=== PATIENT | female | born 1960 | race Caucasian/White ===

== ENCOUNTER 2019-02-21 12:13 | Outpatient (REF) | payer MEDICAID, SELFPAY ==
[2019-02-21 19:39] LABS: Abs Immature Grans 0.05 k/cumm (0.0-0.09); Absolute Basophil Count 0.02 k/cumm (0.0-0.2); Absolute Eosinophil Count 0.39 k/cumm (0.0-0.7); Absolute Lymphocyte Count 1.43 k/cumm (1.2-3.4); Absolute Neutrophil Count 7.33 k/cumm (1.2-6.7); Basophils % 0.2; Eosinophils % 3.9; HCT 40.6 % (36.0-46.0); HGB 13.4 g/dL (12.0-15.5); Immature Grans % 0.5; Lymphocytes % 14.4; Mean Corpuscular Hemoglobin 31.1 pg (27.0-33.0); Mean Corpuscular Volume 94.2 fL (80-95); Mean Platelet Volume 9.2 fL (8.0-11.0); Monocytes % 7.1; Neutrophils % 73.9; Platelet Count 550 x1000/uL (130-400); RBC 4.31 m/cumm (4.00-5.20); RBC Distribution Width 12.8 % (11.7-14.6); White Blood Cell Count 9.92 k/cumm (4.4-10.8)
[2019-02-21 20:03] LABS: ALT 33 U/L (12-78); AST 21 U/L (15-37); Albumin 3.1 g/dL (3.4-5.0); Alkaline Phosphatase 269 U/L (46-116); Anion Gap 11.4 mmol/L (3-11); BUN 10 mg/dL (7-18); Bilirubin, Total 0.3 mg/dL (0.2-1.0); CO2 23.6 mmol/L (21.0-32.0); CREATININE 0.52 mg/dL (0.55-1.02); Chloride 103 mmol/L (98-107); Glucose 89 mg/dL (70-100); Potassium 4.4 mmol/L (3.5-5.1); Sodium 138 mmol/L (136-145); TSH (W/Ref FT4) 3.17 uIU/mL (0.36-3.74); Total Protein 6.5 g/dL (6.4-8.2)
[2019-02-21 20:19] LABS: Magnesium 2.3 mg/dL (1.8-2.4)
== END 2019-02-21 12:33 ==
LOC: LBO 12:13
PROVIDERS: PCP Internal Medicine; Visit Provider Family Medicine
DX: R53.83 Other fatigue (principal); G47.62 Sleep related leg cramps
CPT/HCPCS: 80053; 83735; 84443; 85025

== ENCOUNTER 2019-02-25 14:16 | Outpatient (CLI) | payer MEDICAID, SELFPAY ==
--- NOTE | 2019-02-25 12:15 | DI.RAD_ITS ---
SYMPTOMS/DIAGNOSIS: THROMBOCYTOSIS, D47.3, MALAISE PA AND LATERAL CHEST: Comparison is made with January,. The heart size is normal. The lungs are clear with the exception of some mild apical scarring. There is mild hyperinflation. No infiltrate, effusion or pulmonary edema is seen. No mass or adenopathy is visible. IMPRESSION: No acute abnormality.
== END 2019-02-25 14:36 ==
PROVIDERS: PCP Internal Medicine; Visit Provider Internal Medicine
DX: D47.3 Essential (hemorrhagic) thrombocythemia (principal); R53.81 Other malaise
CPT/HCPCS: 71046

== ENCOUNTER 2019-03-19 00:28 | Outpatient (CLI) | payer MEDICAID, SELFPAY ==
--- NOTE | 2019-03-19 06:47 | MERGEMPI_ITS ---
*[facility]* *[facility]* [address] [place] [address] Myocardial Perfusion Imaging - SPECT Emmett protocol Date of study: 03/19/2019 *PATIENT PRESENTATION* Height: 162.6cm (64in) Blood Pressure: Weight: 59.1kg (130lb) BSA: 1.64m^2 Referring physician: Joselo Myers MD Ordering physician: Alesia Meza Impressions: Normal perfusion by Tc99m Sestamibi Imaging. Summary: 1. Myocardial perfusion imaging: No myocardial perfusion defects noted. 2. The calculated left ventricular ejection fraction after stress: 55%. No left ventricular regional motion abnormality. Indication: R68.89. History: REASON FOR TESTING: FATIGUE AND 9 LB WEIGHT LOSS PMH:GERD, FATIGUE, BILAT HIP AND KNEE PAIN, NOCTURNAL LEG CRAMPS, ANXIETY, VIT B 12 DEFICIENCY, CAROTID ARTERY STENOSIS, COPD, INTERMITTANT CLAUDICATION, PERIPHERAL NEUROPATHY, PVD, PURE HYPERCHOLESTEROLEMIA, LEFT SUBCLAVIAN ARTERY STENOSIS. FAMILY HX: FATHER- HYPERLIPIDEMIA, CO, CAD. CO IN BOTH GRANDPARENTS. SMOKING: DAILY SMOKER X 45 YEARS. EXCERCISE: NONE. PMH: COPD. Risk factors: Family history of coronary artery disease. Current tobacco use. Hypertension. Dyslipidemia. Cholesterol: 188mg/dl. HDL: 45mg/dl. LDL: 121mg/dl. Triglycerides: 133mg/dl. Peripheral vascular disease. ALLERGIES: ERYTHROMYCIN BASE. MEDICATIONS: ASPIRIN 81 MG DAILY, ALBUTEROL SULFATE 90 MCG/ACT 2 PUFFS Q4H PRN, CLOPIDOGREL 75 MG DAILY, FLUTICASONE PROPIONATE- SALMETEROL 23. MCG-21 MCG/ACT 2 PUFFS BID, GABAPENTIN 600 MG TID, ROSUVASTATIN 10 MG DAILY, TIOTROPIUM BROMIDE 18 MCG DAILY, RANITADINE HCL 300 MG BID, CARBAMAZEPINE 200 MG BID, Imaging Technique: Protocol: Emmett protocol. Acquisition: Gated SPECT; 1 day - rest/stress. The patient was imaged in the supine position. Attenuation correction used. Isotope administration: - Rest. Tc[99m]-sestamibi. Dose: 9.8mCi. Injection time: 08:30 AM. Injection to stress time: 00:45. - Stress. Tc[99m]-sestamibi. Dose: 31mCi. Injection time: 09:50 AM. 1-2 min before end of exercise Baseline ECG: LAST EKG 02/21/19- SINUS RHYTHM NONSPECIFIC T-ABNORMALITY. HR 95. TODAY'S EKG- ACCELERATED JUNCTIONAL RHYTHM VS SINUS RHYTHM, HR 85. Stress protocol: +--------+---+ + + !Stage !HR !BP (mmHg) !Comments ! +--------+---+ + + !Baseline!85 !132/80 (97)! ! +--------+---+ + + !1 min !99 ! !Inject Regadenoson.! +--------+---+ + + !2 min !---!138/70 (93)! ! +--------+---+ + + !3 min !103!136/78 (97)! ! +--------+---+ + + !6 min !99 !134/80 (98)! ! +--------+---+ + + * Stress results: The rate-pressure product for the peak heart rate and blood pressure was 04217fx Hg/min. Stress ECG: PT UNABLE TO EXCERCISE- TEST DONE LEXISCAN. MEDICATION TESTING COMPTETE IN 6 MINS LEXISCAN EFFFECT NO LONGER PRESENT. MAX HR WAS 106, WITH A SLIGHTLY HYPERTENSIVE BLOOD PRESSURE RESPONSE. ECTOPY: NONE NOTED: ANGINA: NO REPORTED CHEST PAIN OR PRESSURE. Myocardial perfusion: Imaging information: gated. No myocardial perfusion defects noted. Ventricular Function (Wall Motion): The calculated left ventricular ejection fraction after stress: 55%. No left ventricular regional motion abnormality. Study data: Joselo Myers MD supervised and was readily available during the procedure. This study was interpreted by [facility]. Study status: Routine. Consent: The risks, benefits, and alternatives to the procedure were explained to the patient and informed consent was obtained. Procedure: Initial setup. A baseline ECG was recorded. Surface ECG leads and manual cuff blood pressure measurements were monitored. Heart sounds: Normal. Lung sounds: Normal. Treadmill exercise testing was performed using the Emmett protocol. Study completion: All catheters inserted during the procedure were removed. The patient tolerated the procedure well and was discharged from the lab. Discharge: The patient left the laboratory in stable condition. Birthdate: Patient birthdate: 1960. Sex: Gender: female. Study date: Study date: 03/19/2019. Study time: 00:01 AM. Electronically signed by Joselo Myers MD 03/19/2019 12:43
[2019-03-19] MEDS: Regadenoson 0.4 MG/5 ML SYR IVP (12:07)
== END 2019-03-19 00:48 ==
PROVIDERS: PCP Internal Medicine; Visit Provider Internal Medicine
DX: R53.83 Other fatigue (principal); R63.4 Abnormal weight loss; R68.89 Other general symptoms and signs; I10 Essential (primary) hypertension; E78.00 Pure hypercholesterolemia, unspecified
CPT/HCPCS: 78452; 93017; J2785

== ENCOUNTER 2019-03-19 00:54 | Outpatient (CLI) | payer MEDICAID, SELFPAY | END 2019-03-19 01:14 | PROVIDERS: PCP Internal Medicine; Visit Provider Internal Medicine | DX: R53.83 Other fatigue (principal); R63.4 Abnormal weight loss; R68.89 Other general symptoms and signs; I10 Essential (primary) hypertension; E78.00 Pure hypercholesterolemia, unspecified; F17.200 Nicotine dependence, unspecified, uncomplicated; J44.9 Chronic obstructive pulmonary disease, unspecified; Z82.49 Family history of ischemic heart disease and other diseases of the circulatory system | CPT/HCPCS: 78452; 93017 ==

== ENCOUNTER 2019-04-29 21:09 | Emergency (ER) | payer MEDICAID, SELFPAY ==
[2019-04-29 21:10] VITALS: BP 107/64; PULSE 92; RESP 16; TEMP 36.3; O2SAT 95
--- NOTE | 2019-04-29 22:18 | W.ED.GENAD ---
Discharge Plan Disposition Patient Disposition: OTHER Condition: Stable Discharge Details Chief Complaint: Nk/Back Pain Clinical Impression: Back pain due to injury Primary Care Provider: Alesia Meza ED Provider: Duke Quiñonez Home Meds and New Rx's Prescriptions: No Action albuterol sulfate [ProAir HFA] 90 mcg/actuation HFA aerosol inhaler 2 puff Inhalation Q4H PRN Qty: 3 RF: 3 clopidogrel [Plavix] 75 mg tablet 75 mg PO DAILY Qty: 90 RF: 3 Advair HFA 230-21 mcg/actuation HFA aerosol inhaler 2 inh Inhalation BID Qty: 36 RF: 3 gabapentin 600 mg tablet 600 mg PO TID Qty: 270 RF: 3 rosuvastatin [Crestor] 10 mg tablet 10 mg PO DAILY Qty: 90 RF: 3 Spiriva with HandiHaler 18 mcg capsule, w/inhalation device 18 mcg Inhalation DAILY Qty: 90 RF: 3 ranitidine HCl 150 mg tablet 150 mg PO BID Qty: 180 RF: 3 aspirin [Aspir-81] 81 MG tablet,delayed release (DR/EC) 81 mg PO DAILY RF: 0 Medical Decision Making Patient presenting to the emergency department for chief complaint of left lower back pain. 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 When she twisted she started noting some immediate left lower back pain. Patient has continued to work and has taken intermittent Advil as needed for discomfort but given that pain is persisted she is presenting the emergency department for evaluation. Physical exam is unremarkable except for point tenderness to the left sacroiliac joint and left lower soft tissue. Patient has no vertebral tenderness. No signs of cauda equina, epidural abscess, or central cord syndrome. Plan to perform radiological imaging given duration of symptoms and treat discomfort symptomatically. When staff psychiatrist went to check on patient to prepare for radiology patient had eloped. HPI General Mode of arrival: ambulatory. Date/Time Provider Initiated Documentation: 04/29/19 21:25. Limitations to Documentation: no limitations. Information obtained by: patient and RN notes reviewed. History of Present Illness 59 year old F presents to the emergency department with the chief complaint of Back pain, described as moderate, with intensity rated at 7. Quality is described as aching, and is localized to the back and left (lower). Patient started experiencing this week(s) (3) and it has been constant. Movement worsens symptoms . Patient notes no other symptoms.. Patient did receive the following treatments prior to arrival, NSAID Related Data Home Medications Medication Instructions Recorded Confirmed aspirin [Aspir 81] 81 mg PO DAILY tab 04/24/17 04/29/19 albuterol sulfate 90 mcg/actuation 2 puff INHALATION Q4H PRN #3 10/30/18 04/29/19 aerosol inhaler inhaler clopidogrel 75 mg tablet 75 mg PO DAILY #90 tab-cap 10/30/18 04/29/19 fluticasone propionate-salmeterol 2 inh INHALATION BID #36 gm 10/30/18 04/29/19 230 mcg-21 mcg/actuation HFA inhaler gabapentin 600 mg tablet 600 mg PO TID #270 tab 10/30/18 04/29/19 rosuvastatin 10 mg tablet 10 mg PO DAILY #90 tab-cap 10/30/18 04/29/19 tiotropium bromide 18 mcg capsule 18 mcg INHALATION DAILY #90 tab-cap 10/30/18 04/29/19 with inhalation device ranitidine HCl 150 mg tablet 150 mg PO BID #180 tab 03/04/19 04/29/19 Previous Rx's Medication Instructions Recorded albuterol sulfate 90 mcg/actuation 2 puff INHALATION Q4H PRN #3 10/30/18 aerosol inhaler inhaler clopidogrel 75 mg tablet 75 mg PO DAILY #90 tab-cap 10/30/18 fluticasone propionate-salmeterol 2 inh INHALATION BID #36 gm 10/30/18 230 mcg-21 mcg/actuation HFA inhaler gabapentin 600 mg tablet 600 mg PO TID #270 tab 10/30/18 rosuvastatin 10 mg tablet 10 mg PO DAILY #90 tab-cap 10/30/18 tiotropium bromide 18 mcg capsule 18 mcg INHALATION DAILY #90 tab-cap 10/30/18 with inhalation device ranitidine HCl 150 mg tablet 150 mg PO BID #180 tab 03/04/19 Allergies Allergy/AdvReac Type Severity Reaction Status Date / Time erythromycin base Allergy Unknown Verified 04/29/19 21:16 DO NOT TAKE BP LEFT ARM AdvReac Uncoded 02/25/19 11:14 General Stated Complaint: Nk/Back Pain TRIPP: 4 Review of Systems Constitutional Constitutional: Denies chills and Denies fever(s) Gastrointestinal Gastrointestinal: Denies change in bowel habits and Denies diarrhea Genitourinary Genitourinary: Denies urinary incontinence Musculoskeletal Musculoskeletal: Reports as per HPI and Reports back pain Neurologic Neurologic: Denies sensory deficit [facility] Medical History Anxiety Carotid artery stenosis COPD (chronic obstructive pulmonary disease) PVD (peripheral vascular disease) Smoker Surgical History aortogram (02/04/15[place] [facility] [place] , Ectopic (~1988) Right NIKI Stent Graft (02/04/15) [facility] [place] Right Iliofemoral Endartecectomy (02/04/15) [facility] [place] Right SFA Endarterectomy (02/04/15) [facility] [place] 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 What is your relationship status?: Panel score (0-1 are the most socially isolated patients): 0 What type of physical activity do you participate in: none Seatbelt use: always Drive intox or ride w/intox flag car driver: No Working smoke detector in home: Yes Carbon monox detector in home: Yes Do you feel safe at home: Yes Do you feel safe in your relationship?: Yes Exam Const General: cooperative and no acute distress Orientation: alert, awake and oriented x3 Neck Neck: normal visual inspection, full ROM and no meningeal signs Back/Spine/Pelvis Thoracic/Lumbar Spine: straight leg raise negative bilaterally, No mass, pain with thoraco-lumbar ROM, No paraspinal tenderness, No lumbar spinal tenderness and other (point Tenderness to the left sacroiliac joint) Pelvis: no pain with anterior-posterior compression, no pain with lateral compression, no buttock tenderness and no sciatic notch tenderness Neuro General: alert, awake and oriented x3 DTR's: Rt Patellar: 2+, Lt Patellar: 2+, Rt Ankle: 2+ and Lt Ankle: 2+ Extrem General: normal to inspection, full ROM, normal capillary refill, normal exam except as noted and no pedal edema Course Vital Signs Vital signs: Vital Signs Temperature 36.3 C L 04/29/19 21:10 Pulse 92 H 04/29/19 21:10 Respiratory Rate 16 04/29/19 21:10 Blood Pressure 107/64 04/29/19 21:10 Pulse Oximetry 95 04/29/19 21:10 Temperature 36.3 C L 04/29/19 21:10 Pulse 92 H 04/29/19 21:10 Respiratory Rate 16 04/29/19 21:10 Respiratory Effort 04/29/19 21:18 Blood Pressure 107/64 04/29/19 21:10 Blood Pressure Position Sitting 04/29/19 21:10 Pulse Oximetry 95 04/29/19 21:10 Oxygen Delivery Method Room Air 04/29/19 21:10 Oxygen Flow Rate 0 04/29/19 21:10 Pain Level 7 04/29/19 21:10 Comment 04/29/19 21:10
[2019-04-29] MEDS: Acetaminophen 500 MG TAB 1000 MG PO (22:21)
--- NOTE | 2019-04-29 22:46 | NUR.NOTE ---
2240: pt not in exam room - has been waiting for radiology Nursing Note:
== END 2019-04-29 22:40 | disposition other institution (70) ==
PROVIDERS: Emergency Provider Nurse Practitioner Family; PCP Internal Medicine
DX: M54.5 Low back pain (principal); X50.1XXA Overexertion from prolonged static or awkward postures, initial encounter; Y99.0 Civilian activity done for income or pay; Z53.29 Procedure and treatment not carried out because of patient's decision for other reasons
CPT/HCPCS: 99283

== ENCOUNTER 2019-06-16 14:00 | Outpatient (REF) | payer MEDICAID, SELFPAY ==
[2019-06-16 19:06] LABS: Abs Immature Grans 0.02 k/cumm (0.0-0.09); Absolute Basophil Count 0.01 k/cumm (0.0-0.2); Absolute Eosinophil Count 0.51 k/cumm (0.0-0.7); Absolute Lymphocyte Count 2.15 k/cumm (1.2-3.4); Absolute Monocyte Count 0.59 k/cumm (0.11-0.7); Absolute Neutrophil Count 5.46 k/cumm (1.2-6.7); Basophils % 0.1; Eosinophils % 5.8; Immature Grans % 0.2; Lymphocytes % 24.6; Mean Corp. HGB Concentration 33.3 g/dL (32.0-36.0); Mean Corpuscular Hemoglobin 31.6 pg (27.0-33.0); Mean Corpuscular Volume 94.8 fL (80-95); Mean Platelet Volume 10.1 fL (8.0-11.0); Monocytes % 6.8; Neutrophils % 62.5; Platelet Count 268 x1000/uL (130-400); RBC 4.43 m/cumm (4.00-5.20); RBC Distribution Width 12.7 % (11.7-14.6); White Blood Cell Count 8.74 k/cumm (4.4-10.8)
[2019-06-16 20:13] LABS: ESR 11 mm/hr (0-30)
== END 2019-06-16 14:20 ==
LOC: LBN 14:00
PROVIDERS: PCP Internal Medicine; Visit Provider Family Medicine
DX: D47.3 Essential (hemorrhagic) thrombocythemia (principal); R21 Rash and other nonspecific skin eruption
CPT/HCPCS: 85652; 85025

== ENCOUNTER 2020-01-23 00:36 | Outpatient (CLI) | payer MEDICAID, SELFPAY ==
--- NOTE | 2020-01-23 13:58 | DI.CTLCSR_ITS ---
EXAM: CT CHEST LUNG CANCER SCREEN CLINICAL HISTORY: The patient reportedly has a History of Smoking 30 pack years and presently smokes or has quit the past 15 years. TECHNIQUE: Imaging Protocol: Axial computed tomography images with coronal and sagittal reformatted images were created and reviewed COMPARISON: CR XR CHEST 2V PA LATERAL from 02/25/2019 FINDINGS: Tracheobronchial tree: Patent where visualized. Mediastinum and Maribel: No dominant adenopathy or fluid collection. Pulmonary parenchyma: No consolidation or dominant measurable mass. Emphysematous changes are seen at the lung apices. There is calcification at the apical pleura on the right. There few small scatter ed tiny calcifications bilaterally.. Lung Nodules: 3 millimeter left lower lobe noncalcified nodule. Pleura: No effusion or pneumothorax. Heart: The heart is not dilated. Moderate coronary artery calcifications are seen. Aorta: Thoracic aorta non-dilated.Mild calcification Upper abdomen: Unremarkable. Bones: Degenerative changes in the spine. Soft Tissues: Unremarkable. IMPRESSION: Emphysematous changes at the lung apices. Scattered calcified tiny pulmonary nodules. 3 millimeter non calcified left lower lobe nodule. Lung RADS Cat 2 - Benign Appearance / Behavior: Nodules with a very low likelihood of becoming a clin ically active cancer due to size or lack of growth Lung-RADS 1.0 CATEGORIES: Category 0 - Prior chest CT exam(s) being located for comparison. Category 1 - Annual screening in 12 months. No nodules or definitely benign nodules. Category 2 - Annual screening in 12 months. Benign appearance. Nodules with low likelihood of becomin g active cancer. Category 3 - 6-month follow-up. Probably benign. Short-term follow-up suggested. Nodules with low lik elihood of becoming active cancer. Category 4A - 3-month follow-up and CT/PET if >8 mm in size. Suspicious finding. Findings which requi re additional testing. Category 4B - Findings which require additional testing and tissue sampling. Suspicious finding. C Added to Any of the Above - History of prior lung cancer screening. S Added to Any of the Above - Significant unexpected other finding. RADIATION DOSE DELIVERED: Total DLP DATA REPOSITORY: All CT scans at this facility are submitted to the National Radiology Data Registry (NRDR) Dose Index Registry (DIR) with the [employer] (ACR). RADIATION OPTIMIZATION: All CT scans at this facility use at least one of these dose optimization te chniques: automated exposure control; mA and/or kV adjustment per patient size (includes targeted exa ms where dose is matched to clinical indication); or iterative reconstruction.
== END 2020-01-23 00:56 ==
PROVIDERS: PCP Internal Medicine; Visit Provider Internal Medicine
DX: Z12.2 Encounter for screening for malignant neoplasm of respiratory organs (principal); F17.210 Nicotine dependence, cigarettes, uncomplicated; R91.8 Other nonspecific abnormal finding of lung field; J98.4 Other disorders of lung
CPT/HCPCS: G0297

== ENCOUNTER 2020-02-11 01:34 | Outpatient (CLI) | payer MEDICAID, SELFPAY ==
--- NOTE | 2020-02-11 15:21 | DI.MAMMO_ITS ---
EXAM: MG MAMMO SCREENING CLINICAL HISTORY: screening,Z12.31 TECHNIQUE: Bilateral full field digital CC and MLO mammographic images were obtained with 3D tomosyn thesis and utilizing computer aided detection (CAD). COMPARISON: Available for comparison. FINDINGS: Masses/Architectural Distortion: None seen. Microcalcifications: No suspicious pleomorphic-type are seen. Skin Thickening/Nipple Retraction: None. IMPRESSION: 1. No significant interval change with no specific features of malignancy noted. 2. Unless there is more urgent need, screening mammography is recommended, as per [employer] [place] [employer] guidelines. BI-RADS Category 1 - Negative Breast Density - Category B - Scattered areas of fibroglandular density A negative radiographic report should not delay biopsy if a dominant or clinically suspicious mass is present. Up to ten percent of cancers are not identified on mammography. A negative report may reinforce clinical impression. Adenosis and dense breasts may obscure an underlying neoplasm. False positive reports average 6 to 10%. Patient will receive a letter notifying them of these results.
== END 2020-02-11 01:54 ==
PROVIDERS: PCP Internal Medicine; Visit Provider Internal Medicine
DX: Z12.31 Encounter for screening mammogram for malignant neoplasm of breast (principal)
CPT/HCPCS: 77063; 77067

== ENCOUNTER 2020-12-10 03:14 | Outpatient (CLI) | payer MEDICAID, SELFPAY ==
[2020-12-10 09:05] LABS: Bilirubin Negative (Negative); Blood Trace-intact (Negative); Clarity Sl Cloudy (Clear); Glucose Negative (Negative); Ketones Negative (Negative); Leukocyte Esterase Moderate (Negative); Nitrite Negative (Negative); Specific Gravity 1.025 (1.005-1.025); Urobilinogen 0.2 EU/dL (Up TO 0.2)
--- NOTE | 2020-12-10 09:06 | DI.RAD_ITS ---
Exam(s) XR THORACIC SPINE COMPLETE EXAM: XR THORACIC SPINE COMPLETE CLINICAL HISTORY: BACK PAIN, DORSALGIA,M54.9 TECHNIQUE: COMPARISON: CR THORACIC SPINE from 12/03/[address] CHEST LUNG CANCER SCREEN from 01/23/2020 FINDINGS: Three views were obtained. There is an old mild anterior compression fracture of the L1 vertebral tom dy. This was present on prior CT of January 2020. No additional fracture seen. There is a mild biconvex thoracolumbar scoliosis. There are mild hyper trophic degenerative changes of facet joints and endplates throughout the thoracic region. Intervert ebral disc spaces are fairly well maintained. IMPRESSION: Mild degenerative changes. No evidence of acute process. RADIATION DOSE DELIVERED: Total DLP
[2020-12-10 09:09] LABS: Bacteria Moderate HPF (Negative); Casts Negative LPF (Negative); Crystals Negative HPF (Negative); Epithelial Cells Few HPF (Negative); Mucus Negative (Negative)
[2020-12-10 09:10] LABS: C & S Indicated? Yes
[2020-12-10 10:44] LABS: Anion Gap 12.2 mmol/L (3-11); BUN 10 mg/dL (7-18); CO2 25.8 mmol/L (21.0-32.0); Calcium 8.8 mg/dL (8.5-10.1); Calculated LDL 86 mg/dL (<100); Chloride 106 mmol/L (98-107); Cholesterol 158 mg/dL (<200); Estimated GFR 56.18 (mL/min/1.73m2); Glucose 190 mg/dL (74-106); HDL Cholesterol 40 mg/dL (40-60); Sodium 144 mmol/L (136-145); Triglyceride 162 mg/dL (<150)
== END 2020-12-10 03:15 | disposition home or self-care (01) ==
LOC: LBO 03:14
PROVIDERS: PCP Internal Medicine; Visit Provider Internal Medicine
DX: I10 Essential (primary) hypertension (principal); E78.00 Pure hypercholesterolemia, unspecified; R03.0 Elevated blood-pressure reading, without diagnosis of hypertension; R82.998 Other abnormal findings in urine; M54.6 Pain in thoracic spine; M47.814 Spondylosis without myelopathy or radiculopathy, thoracic region
CPT/HCPCS: 36415; 80048; 80061; 72072; 81003; 81015; 87086

== ENCOUNTER 2021-02-01 04:05 | Outpatient (CLI) | payer MEDICAID, SELFPAY ==
[2021-02-01 11:45] LABS: Anion Gap 12.7 mmol/L (3-11); BUN 7 mg/dL (7-18); CO2 24.3 mmol/L (21.0-32.0); Calcium 8.9 mg/dL (8.5-10.1); Chloride 105 mmol/L (98-107); Estimated GFR 56.18 (mL/min/1.73m2); Glucose 198 mg/dL (74-106); Potassium 3.8 mmol/L (3.5-5.1); Sodium 142 mmol/L (136-145)
== END 2021-02-01 04:06 | disposition home or self-care (01) ==
PROVIDERS: PCP Internal Medicine; Visit Provider Internal Medicine
DX: I10 Essential (primary) hypertension (principal)
CPT/HCPCS: 36415; 80048

== ENCOUNTER 2021-06-05 08:38 | Emergency (ER) | payer MEDICAID, SELFPAY ==
[2021-06-05 08:49] VITALS: BP 160/88; PULSE 97; RESP 16; TEMP 36; O2SAT 95
--- NOTE | 2021-06-05 09:29 | ED.GENADUL_ITS ---
Discharge Plan Disposition Patient Disposition: HOME Condition: Stable Discharge Details Clinical Impression: Cough Primary Care Provider: Alesia Meza ED Provider: Roni Johnson Home Meds and New Rx's Prescriptions: New levofloxacin 750 mg tablet 750 mg PO DAILY 5 Days Qty: 5 RF: 0 prednisone 20 mg tablet 60 mg PO DAILY 5 Days Qty: 15 RF: 0 Continued methocarbamol 750 mg tablet 750 mg PO TID PRN (Reason: muscle spasm) Qty: 30 RF: 2 epinephrine [EpiPen 2-Luigi] 0.3 mg/0.3 mL auto-injector 0.3 mg IM ONCE PRN (Reason: anaphylaxis) Qty: 1 RF: 2 bismuth subsalicylate [Bismatrol] 262 mg tablet,chewable See Rx Instructions PO .COMPLEX Qty: 189 RF: 0 clopidogrel [Plavix] 75 mg tablet 75 mg PO DAILY Qty: 90 RF: 3 gabapentin 600 mg tablet 600 mg PO TID Qty: 270 RF: 3 rosuvastatin [Crestor] 10 mg tablet 10 mg PO DAILY Qty: 90 RF: 3 Spiriva with HandiHaler 18 mcg capsule, w/inhalation device 18 mcg Inhalation DAILY Qty: 90 RF: 3 Advair HFA 230-21 mcg/actuation HFA aerosol inhaler 2 inh Inhalation BID Qty: 36 RF: 3 albuterol sulfate [ProAir HFA] 90 mcg/actuation HFA aerosol inhaler 2 puff Inhalation Q4H PRN Qty: 3 RF: 3 amlodipine 2.5 mg tablet 2.5 mg PO DAILY Qty: 30 RF: 0 aspirin [Aspir-81] 81 MG tablet,delayed release (DR/EC) 81 mg PO DAILY RF: 0 famotidine [Heartburn Relief (famotidine)] 20 mg tablet 20 mg PO BID Qty: 180 RF: 3 Discharge Instructions Instructions: Acute Cough (ED) Additional Instructions: I strongly recommend that you quit smoking. Hyjc-xef-[id number] medications as directed for symptomatic control. I am prescribing Levaquin and prednisone, take as directed. Covid test is pending, I recommend quarantining until the test has come back negative. Please watch for new or worsening symptoms and return to the ER for any concerns. Otherwise I recommend you contact your primary care provider tomorrow to discuss your ongoing symptoms and need for outpatient reevaluation. Medical Decision Making 61-year-old female, current smoker, history of COPD, not O2 dependent, presents with 3-day history of worsening cough, concern for bronchitis. Reports that she is fully vaccinated against Covid. Clinically she has a dry cough and wheezing throughout that primarily clear with cough. She has inhalers and neb machine at home. She is afebrile, O2 sat 95% on room air, and pulse is in the 90s. Legs without evidence of DVT. Patient states exactly how she feels when she gets bronchitis. Given her history of COPD and smoking, worsening symptoms, I do believe treating her with antibiotics is reasonable as well as steroid. Given we will be treating her with antibiotics I do not believe that obtaining a chest x-ray is prudent. We will also test for Covid. Patient is comfortable with this plan and has no additional questions or concerns. Standard discharge and return precautions provided. This documentation was generated using [employer] dictation system, please disregard any oddities of phrase or misspellings. Medical Records Medical records reviewed: Yes I reviewed the patient's medical records. Lab Data Labs: Covid pending HPI General Mode of arrival: ambulatory . Date/Time Provider Initiated Documentation: 06/05/21 09:05 . Limitations to Documentation: no limitations . Information obtained by: patient . HPI Narrative: This is a 61-year-old female, past medical history of COPD, anxiety, PVD, current smoker, presenting to the ER concerned that she may have bronchitis requesting antibiotics and steroids. Patient states that her roommates significant other came over and had a cough but no known obvious Covid exposures. She is fully vaccinated against Covid. She denies any fevers, chest pain, shortness of breath, abdominal pain, nausea vomiting, diarrhea, skin rash, pain or swelling in her lower extremities, history of DVT or PE. Patient has been taking her medications as directed. She does not complain of any shortness of breath. States that her cough is primarily dry occasionally productive. Related Data Home Medications Medication Instructions Recorded Confirmed aspirin [Aspir-81] 81 mg PO DAILY tab 04/24/17 06/05/21 epinephrine 0.3 mg/0.3 mL 0.3 mg IM ONCE PRN #1 each 01/06/20 06/05/21 injection, auto-injector famotidine 20 mg tablet 20 mg PO BID #180 tab 07/06/20 06/05/21 albuterol sulfate 90 mcg/actuation 2 puff INHALATION Q4H PRN #3 11/02/20 06/05/21 aerosol inhaler inhaler clopidogrel 75 mg tablet 75 mg PO DAILY #90 tab-cap 11/02/20 06/05/21 fluticasone propionate 230 2 inh INHALATION BID #36 gm 11/02/20 06/05/21 mcg-salmeterol 21 mcg/actuation HFA inhaler gabapentin 600 mg tablet 600 mg PO TID #270 tab 11/02/20 06/05/21 rosuvastatin 10 mg tablet 10 mg PO DAILY #90 tab-cap 11/02/20 06/05/21 tiotropium bromide 18 mcg capsule 18 mcg INHALATION DAILY #90 tab-cap 11/02/20 06/05/21 with inhalation device bismuth subsalicylate 262 mg See Rx Instructions PO .COMPLEX 11/24/20 06/05/21 chewable tablet #189 tab methocarbamol 750 mg tablet 750 mg PO TID PRN #30 tab 11/30/20 06/05/21 amlodipine 2.5 mg tablet 2.5 mg PO DAILY #30 tab 01/28/21 06/05/21 levofloxacin 750 mg PO DAILY 5 Days #5 tab 06/05/21 prednisone 60 mg PO DAILY 5 Days #15 tab 06/05/21 Previous Rx's Medication Instructions Recorded epinephrine 0.3 mg/0.3 mL 0.3 mg IM ONCE PRN #1 each 01/06/20 injection, auto-injector famotidine 20 mg tablet 20 mg PO BID #180 tab 07/06/20 albuterol sulfate 90 mcg/actuation 2 puff INHALATION Q4H PRN #3 11/02/20 aerosol inhaler inhaler clopidogrel 75 mg tablet 75 mg PO DAILY #90 tab-cap 11/02/20 fluticasone propionate 230 2 inh INHALATION BID #36 gm 11/02/20 mcg-salmeterol 21 mcg/actuation HFA inhaler gabapentin 600 mg tablet 600 mg PO TID #270 tab 11/02/20 rosuvastatin 10 mg tablet 10 mg PO DAILY #90 tab-cap 11/02/20 tiotropium bromide 18 mcg capsule 18 mcg INHALATION DAILY #90 tab-cap 11/02/20 with inhalation device bismuth subsalicylate 262 mg See Rx Instructions PO .COMPLEX 11/24/20 chewable tablet #189 tab methocarbamol 750 mg tablet 750 mg PO TID PRN #30 tab 11/30/20 amlodipine 2.5 mg tablet 2.5 mg PO DAILY #30 tab 01/28/21 levofloxacin 750 mg PO DAILY 5 Days #5 tab 06/05/21 prednisone 60 mg PO DAILY 5 Days #15 tab 06/05/21 Allergies Allergy/AdvReac Type Severity Reaction Status Date / Time insect venom Allergy Severe requires Verified 06/05/21 08:54 epi-pen (black flies) erythromycin base AdvReac Unknown upset Verified 06/05/21 08:54 stomach DO NOT TAKE BP LEFT ARM AdvReac Uncoded 06/05/21 08:54 General Stated Complaint: RespSymp TRIPP: 3 Review of Systems Constitutional Constitutional: Denies fever(s), Denies headache(s) and Denies weakness ENT Ears, Nose, Mouth, and Throat: Denies headache(s) and Denies neck pain Cardiovascular Cardiovascular: Denies chest pain and Denies dyspnea Respiratory Respiratory: Reports cough, Denies dyspnea and Reports wheezing Gastrointestinal Gastrointestinal: Denies abdominal pain, Denies diarrhea, Denies nausea and Denies vomiting Musculoskeletal Musculoskeletal: Reports back pain (Chronic in nature) and Denies neck pain Integumentary/Breasts Skin/Breast: Denies rash Neurologic Neurologic: Denies headache(s) and Denies weakness Allergic/Immunologic Allergic/Immunologic: Reports wheezing [facility] Medical History Anxiety Carotid artery stenosis COPD (chronic obstructive pulmonary disease) 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) [facility] [place]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 Yun Archer Family History Mother Pancreatitis Father Hyperlipidemia Myocardial infarction Heart disease Brother Substance abuse ETOH Grandfather Myocardial infarction Grandmother Myocardial infarction Colon cancer high risk Aunt Osteosarcoma Uterine cancer Social History Smoking/Tobacco Use Status: Current every day Tobacco Type: cigarettes and e- cigarettes Tobacco: How many years used: 45 Quit status: considering quitting Smoking risk assessment performed?: Yes Alcohol Intake: never Drug use: Never Substance use type: does not use Housing: house Number of Children: 2 Communication Needs: Corrective Lenses Education Level: college 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 [employer] Current gender identity: female What is your relationship status?: Panel score (0-1 are the most socially isolated patients): 0 What type of physical activity do you participate in: none Seatbelt use: always Drive intox or ride w/intox limb driver: No Working smoke detector in home: Yes Carbon monox detector in home: Yes Do you feel safe at home: Yes Do you feel safe in your relationship?: Yes Exam Const General: cooperative, healthy appearing, comfortable and no acute distress Orientation: alert and awake [facility] Head: normal to inspection, normocephalic and atraumatic Face and sinus: normal facial exam Mouth: moist mucous membranes Throat: posterior oropharynx normal Eyes General: appearance normal, both eyes and all related structures Conjunctivae: conjunctivae normal Neck Neck: normal visual inspection, full ROM, no meningeal signs, trachea midline and supple Resp Effort & Inspection: normal respiratory effort, able to speak in complete sentences and cough Auscultation: diminished lung sounds bilaterally in the lower lung sultana and wheezes (Throughout, mostly clear with cough) Cardio Rate: regular rate Rhythm: regular rhythm Skin General skin exam: no rashes or lesions noted Neuro General: patient alert, patient awake, moves all extremities and no focal motor deficits Cognition: normal cognition Speech: speech normal Gait: normal gait Motor: muscle tone normal throughout Sensory Exam: no sensory deficits noted Extrem General: normal to inspection, full ROM, capillary refill normal, no pedal edema and no calf tenderness Psych Appearance: grossly normal Mental Status: mental status grossly normal Course Vital Signs Vital signs: Vital Signs Temperature 36 C L 11/14/21 08:49 Pulse 97 H 06/05/21 08:49 Respiratory Rate 16 06/05/21 08:49 Blood Pressure 160/88 H 06/05/21 08:49 Pulse Oximetry 95 06/05/21 08:49 Temperature 36 C L 06/05/21 08:49 Temperature Source Skin 06/05/21 08:49 Pulse 97 H 06/05/21 08:49 Respiratory Rate 16 06/05/21 08:49 Respiratory Effort 06/05/21 08:56 Respiratory Depth Normal 06/05/21 08:56 Blood Pressure 160/88 H 06/05/21 08:49 Blood Pressure Position Sitting 06/05/21 08:49 Pulse Oximetry 95 06/05/21 08:49 Oxygen Delivery Method Room Air 06/05/21 08:49 Oxygen Flow Rate 0 06/05/21 08:49 Pain Level 0 06/05/21 08:49
[2021-06-05 09:31] LABS: Source Nasal/Nares
[2021-06-05 14:17] LABS: COVID-19 PCR Negative (Negative)
== END 2021-06-05 10:03 | disposition home or self-care (01) ==
PROVIDERS: Emergency Provider Physician Assistant; PCP Internal Medicine
DX: R05.1 Acute cough (principal); J44.9 Chronic obstructive pulmonary disease, unspecified; F17.210 Nicotine dependence, cigarettes, uncomplicated; Z20.822 Contact with and (suspected) exposure to COVID-19; Z03.818 Encounter for observation for suspected exposure to other biological agents ruled out
CPT/HCPCS: 87635; 99283

== ENCOUNTER 2021-10-28 00:58 | Outpatient (CLI) | payer MEDICAID, SELFPAY ==
--- NOTE | 2021-10-28 08:16 | DI.RAD_ITS ---
Exam(s) XR CHEST 2V PA LATERAL EXAM: XR CHEST 2V PA LATERAL CLINICAL HISTORY: r/o pneumonia,copd with acute exac, bronchitis, j44.1,j40. TECHNIQUE: 2D digital imaging was performed. COMPARISON: CR XR CHEST 2V PA LATERAL from 02/25/2019 FINDINGS: 2 views: Heart size is normal. The mediastinum is not widened. Lungs are clear. No infiltrates nor pleural effusions. IMPRESSION: No acute pulmonary findings. DATA REPOSITORY: RADIATION DOSE DELIVERED:
== END 2021-10-28 01:18 ==
PROVIDERS: PCP Internal Medicine; Visit Provider Internal Medicine
DX: J44.1 Chronic obstructive pulmonary disease with (acute) exacerbation (principal); J40 Bronchitis, not specified as acute or chronic
CPT/HCPCS: 71046

== ENCOUNTER → 2021-12-20 01:40 | Outpatient (CLI) | payer MEDICAID, SELFPAY | PROVIDERS: PCP Internal Medicine; Visit Provider Internal Medicine ==

== ENCOUNTER 2022-07-21 10:56 | Emergency (ER) | payer MEDICAID, SELFPAY ==
[2022-07-21 11:07] VITALS: BP 148/79; PULSE 97; RESP 18; TEMP 36.9; O2SAT 96
--- NOTE | 2022-07-21 11:30 | RT.EKG_ITS ---
APPROVED REPORT Exam: Resting ECG Reason for Exam: weakness right Patient Location: E HR:96 bpm ECG Measurements Heart Rate 96 AXIS CO 153 P 46 QRSd 89 QRS 67 QT 392 T 84 QTc 495 Conclusion Sinus rhythm...normal P axis, V-rate 60- 99 Nonspecific T abnrm, anterolateral leads...T <-0.10mV, I aVL V2-V6 sinus rhythm, normal axis, normal intervals, non ischemic
--- NOTE | 2022-07-21 11:30 | DI.MRI_ITS ---
Exam(s) MR BRAIN WO/W EXAM: MR BRAIN WO/W CLINICAL HISTORY: right UE and LE weakness, dim sensation, gradual. TECHNIQUE: Multiplanar multisequence MRI of the brain was performed. CONTRAST MATERIAL: IV Contrast: ML of Dotarem contrast administered. COMPARISON: No exams were available for comparison FINDINGS: VENTRICLES AND EXTRA AXIAL SPACES: Normal in size and morphology for the patient's age. HEMORRHAGE: None. CEREBRAL PARENCHYMA: No focus of restricted diffusion to suggest acute infarct. No space-occupying le patrice identified. Minimal small foci of high signal in the white matter consistent with microvascular changes. MIDLINE SHIFT: None. BRAINSTEM/CEREBELLUM: Normal. CALVARIUM: Normal. ENHANCEMENT: No suspicious enhancement identified. VISUALIZED PARANASAL SINUSES/MASTOIDS: Clear. OTHER FINDINGS: On the T2 sagittal sequences , there are prominent endplate osteophytes as well as fa cet osteophytes at C3-4 which appear to significantly narrow the central canal and may impinge on the upper cervical cord. IMPRESSION: Unremarkable MRI of the brain. Degenerative changes at C3-4 appear to cause significant narrowing of the central canal. MRI of the c ervical spine could be performed for further evaluation. Findings called to Hyacinth Thomason , emergency department provider. DATA REPOSITORY:
[2022-07-21 11:55] LABS: Abs Immature Grans 0.03 10^3/uL (0.0-0.06); Absolute Basophil Count 0.04 10^3/uL (0.0-0.2); Absolute Eosinophil Count 0.11 10^3/uL (0.0-0.7); Absolute Lymphocyte Count 1.75 10^3/uL (1.2-3.4); Absolute Monocyte Count 0.59 10^3/uL (0.1-0.8); Absolute Neutrophil Count 6.42 10^3/uL (1.2-6.7); Basophils % 0.4; Eosinophils % 1.2; HCT 42.5 % (36.0-46.0); HGB 14.5 g/dL (11.2-15.7); Immature Grans % 0.3; Lymphocytes % 19.6; MCH 32.7 pg (27.0-33.0); MCHC 34.1 % (32.0-36.0); MCV 96 fL (80-95); MPV 9.1 fL (8.0-11.0); Monocytes % 6.6; Neutrophils % 71.9; Platelet Count 265 10^3/uL (130-400); RBC 4.44 10^6/uL (3.93-5.22); RDW 13.2 % (11.7-14.6); RDW-SD 46.7 fL; WBC 8.94 10^3/uL (4.4-10.8)
[2022-07-21 12:02] VITALS: BP 148/97; PULSE 94; RESP 18; TEMP 35.8; O2SAT 94
[2022-07-21 12:18] LABS: ALT 15 U/L (14-59); AST 13 U/L (15-37); Alkaline Phosphatase 103 U/L (46-116); Anion Gap 7.4 mmol/L (3-11); BUN 10 mg/dL (7-18); Bilirubin, Total 0.3 mg/dL (0.2-1.0); CO2 28.6 mmol/L (21.0-32.0); CREATININE 0.9 mg/dL (0.55-1.02); Chloride 105 mmol/L (98-107); Estimated GFR 71.39 (mL/min/1.73m2); Glucose 72 mg/dL (74-106); Magnesium 2.3 mg/dL (1.8-2.4); Potassium 3.7 mmol/L (3.5-5.1); Sodium 141 mmol/L (136-145); Total Protein 7.4 g/dL (6.4-8.2)
[2022-07-21] MEDS: Normal Saline Flush 10 ML SYR IVP (12:33)
--- NOTE | 2022-07-21 13:38 | W.ED.GENAD ---
Discharge Plan Disposition Patient Disposition: Home Condition: Stable Discharge Details Clinical Impression: Muscle right arm weakness, Right leg weakness Primary Care Provider: Zhang Beckett ED Provider: Hyacinth Thomason Home Meds and New Rx's Prescriptions: New prednisone 20 mg tablet 40 mg PO DAILY Qty: 10 0RF Continued prednisone 10 mg tablet See Rx Instructions PO DAILY Qty: 21 0RF Rx Instructions: 6-5-4-3-2-1 tabs PO DAILY; take in AM with food albuterol sulfate [ProAir HFA] 90 mcg/actuation HFA aerosol inhaler 2 puff Inhalation Q4H PRN Qty: 3 3RF clopidogrel [Plavix] 75 mg tablet 75 mg PO DAILY Qty: 90 3RF Advair HFA 230-21 mcg/actuation HFA aerosol inhaler 2 inh Inhalation BID Qty: 36 3RF gabapentin 600 mg tablet 600 mg PO TID Qty: 270 3RF rosuvastatin [Crestor] 10 mg tablet 10 mg PO DAILY Qty: 90 3RF Spiriva with HandiHaler 18 mcg capsule, w/inhalation device 18 mcg Inhalation DAILY Qty: 90 3RF epinephrine [EpiPen 2-Luigi] 0.3 mg/0.3 mL auto-injector 0.3 mg IM ONCE PRN (Reason: anaphylaxis) Qty: 1 2RF Tylenol Extra Strength 500 mg powder in packet 1,000 mg PO Q6H PRN Label Comments: 08/23/21 using 1-2x/day for back pain famotidine [Heartburn Relief (famotidine)] 20 mg tablet 20 mg PO BID Qty: 180 3RF fluticasone propionate 50 mcg/actuation spray,suspension 1 spray intranasal BID Rx Instructions: administer into each nostril Discharge Instructions Additional Instructions: You have declined MRI of your cervical spine and your lumbar spine, at this time I am unsure as to why you are having the weakness in your arm and your right leg, I recommend being reevaluated at your earliest ability I will place her on prednisone for the next couple of days Please return for reassessment at your earliest ability Referrals: Zhang Beckett DO [Primary Care Provider] - Discharge Data Discharge Date/Time-TO BE ENTERED AT DEPARTURE: 07/21/22 14:01 Medical Decision Making Patient is a 62-year-old female that presents with 3 months of symptoms, worsening in the past week of right lower extremity and right upper extremity weakness She states she is actually burned her right hand secondary to numbness She is not had any evaluation diagnostically for the symptoms I did order MRI of brain to exclude CVA, this is negative, this was discussed with Dr. Suazo, radiologist Labs were reviewed Patient is neurovascularly intact to bilateral lower extremities and vascularly intact to right upper extremity and left upper extremity, diminished sensation to right upper extremity Vitals are stable for patient I did discuss performing MRI of patient's cervical and lumbar spine, she refuses at this time, she states that she has errands to run She is aware that she has significant deficit in her right upper extremity my recommendation is for further evaluation of her symptoms, she is fully alert, oriented, of decisional capacity and she is strongly encouraged to follow-up as soon as she is able Placed her on steroids to see if it improves her symptoms Return precautions reviewed and patient expressed understanding Medical Records Medical records reviewed: Yes I reviewed the patient's medical records. Lab Data Lab results reviewed: Yes I reviewed the patient's lab results. HPI General Date/Time Provider Initiated Documentation: 07/21/22 11:01. HPI Narrative: This 62-year-old female with history of coagulopathy, vasculopath, presents with report of 2 months of worsening strength and sensation changes to right upper arm and right leg. Denies fever, chest pain, shortness of breath. States her symptoms are worse this week which is why she presents. She denies any headache or dizziness. She denies any known trauma. She denies any significant pain to her neck or lumbar spine Related Data Home Medications Medication Instructions Recorded Confirmed epinephrine 0.3 mg/0.3 mL 0.3 mg (0.3 mL) IM ONCE PRN 01/06/20 07/21/22 injection, auto-injector (EpiPen anaphylaxis #1 ea 2-Luigi) acetaminophen 500 mg oral powder 1,000 mg PO Q6H PRN 08/23/21 07/21/22 packet (Tylenol Extra Strength) famotidine 20 mg tablet (Heartburn 20 mg PO BID GERD #180 tabs 08/23/21 07/21/22 Relief (famotidine)) fluticasone propionate 50 1 spray intranasal BID 10/18/21 07/21/22 mcg/actuation nasal spray,suspension albuterol sulfate 90 mcg/actuation 2 puff inhalation Q4H PRN ##3 10/19/21 07/21/22 aerosol inhaler (ProAir HFA) clopidogrel 75 mg tablet (Plavix) 75 mg PO DAILY #90 tab-caps 10/19/21 07/21/22 fluticasone propionate 230 2 inh inhalation BID #36 grams 10/19/21 07/21/22 mcg-salmeterol 21 mcg/actuation HFA inhaler (Advair HFA) gabapentin 600 mg tablet 600 mg PO TID #270 tabs 10/19/21 07/21/22 prednisone 10 mg tablet See Rx Instructions PO DAILY #21 10/19/21 11/01/21 tab-caps rosuvastatin 10 mg tablet (Crestor) 10 mg PO DAILY #90 tab-caps 10/19/21 07/21/22 tiotropium bromide 18 mcg capsule 18 mcg inhalation DAILY #90 10/19/21 07/21/22 with inhalation device (Spiriva tab-caps with HandiHaler) prednisone 20 mg tablet 40 mg PO DAILY #10 tabs 07/21/22 Previous Rx's Medication Instructions Recorded epinephrine 0.3 mg/0.3 mL 0.3 mg (0.3 mL) IM ONCE PRN 01/06/20 injection, auto-injector (EpiPen anaphylaxis #1 ea 2-Luigi) famotidine 20 mg tablet (Heartburn 20 mg PO BID GERD #180 tabs 08/23/21 Relief (famotidine)) albuterol sulfate 90 mcg/actuation 2 puff inhalation Q4H PRN ##3 10/19/21 aerosol inhaler (ProAir HFA) clopidogrel 75 mg tablet (Plavix) 75 mg PO DAILY #90 tab-caps 10/19/21 fluticasone propionate 230 2 inh inhalation BID #36 grams 10/19/21 mcg-salmeterol 21 mcg/actuation HFA inhaler (Advair HFA) gabapentin 600 mg tablet 600 mg PO TID #270 tabs 10/19/21 prednisone 10 mg tablet See Rx Instructions PO DAILY #21 10/19/21 tab-caps rosuvastatin 10 mg tablet (Crestor) 10 mg PO DAILY #90 tab-caps 10/19/21 tiotropium bromide 18 mcg capsule 18 mcg inhalation DAILY #90 10/19/21 with inhalation device (Spiriva tab-caps with HandiHaler) prednisone 20 mg tablet 40 mg PO DAILY #10 tabs 07/21/22 Allergies Allergy/AdvReac Type Severity Reaction Status Date / Time insect venom Allergy Severe requires Verified 06/26/22 14:04 epi-pen (black flies) erythromycin base AdvReac Unknown upset Verified 06/26/22 14:04 stomach DO NOT TAKE BP LEFT ARM AdvReac Uncoded 06/26/22 14:04 General Stated Complaint: [facility] TRIPP: 3 Review of Systems All systems reviewed & are unremarkable except as noted in HPI and below PFSH All Active Problems (Updated 07/21/22 @ 13:43 by MARAL Costello) Muscle right arm weakness (Acute) Right leg weakness (Acute) Back pain (Acute) Elevated blood pressure reading without diagnosis of hypertension (Acute) Word finding difficulty (Chronic) GERD (gastroesophageal reflux disease) (Chronic) Left carotid artery occlusion (Acute 06/01/20) [facility] [place] Constipation (Chronic) Fatigue (Acute) Hip pain, bilateral (Acute) Knee pain, bilateral (Acute) Nocturnal leg cramps (Chronic) Anxiety (Acute 09/06/16) B12 deficiency (Acute 10/31/16) Carotid artery stenosis (Acute 12/09/13) 12-09-13: (L) ICA w/ high grade velocity; CEA 12/2013 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 RTC in 6 months with carotoid duplex Chronic obstructive lung disease (Acute 11/12/13) Family history of cardiovascular disease (Acute 11/12/13) father [place] 55 yo Intermittent claudication (Acute 11/12/13) (L) Iliofemoral endarterectomy 05/11/14 (L) Common Iliac artery Stent placement 05/11/14 (L) external Iliac stent graft 05/11/14 Pain in both feet (Acute 10/31/16) Peripheral polyneuropathy (Acute 10/19/15) Peripheral vascular disease (Acute 11/12/13) Pure hypercholesterolemia (Acute 11/12/13) Smoker (Acute 11/12/13) Subclavian artery stenosis, left (Acute 04/20/17) unsuccessful stenting attempt. 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 Yun [place] Family History Mother Pancreatitis Father Hyperlipidemia Myocardial infarction Heart disease Brother Substance abuse ETOH Grandfather Myocardial infarction Grandmother Myocardial infarction Colon cancer high risk Aunt Osteosarcoma Uterine cancer Social History Smoking/Tobacco Use Status: Current every day Tobacco Type: cigarettes and e-cigarettes Tobacco: How many years used: 45 Quit status: considering quitting Smoking risk assessment performed?: Yes Alcohol Intake: never Drug use: Never Substance use type: does not use Housing: house Number of Children: 2 Communication Needs: Corrective Lenses Education Level: college 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 Current gender identity: female What is your relationship status?: Panel score (0-1 are the most socially isolated patients): 0 What type of physical activity do you participate in: none Seatbelt use: always Drive intox or ride w/intox truck driver salesperson: No Working smoke detector in home: Yes Carbon monox detector in home: Yes Do you feel safe at home: Yes Do you feel safe in your relationship?: Yes Exam Const General: cooperative, comfortable and no acute distress HENMT Head: normal to inspection Other: Uvula midline, oropharynx patent Eyes Pupils: PERRL EOM: EOM intact bilaterally Resp Effort & Inspection: normal respiratory effort Auscultation: clear to auscultation bilaterally Cardio Rate: regular rate Rhythm: regular rhythm Other: Distal pulses intact all 4 extremities GI Inspection: normal to inspection Skin General skin exam: no rashes or lesions noted Neuro General: patient alert and patient oriented x3 Other: Strength 3 out of 5 to right upper extremity, strength 4 out of 5 to right lower extremity, diminished sensation to forearm and hand on right, left sensation and strength intact to upper extremity Right lower extremity with sensation intact, DTRs intact to brachioradialis and Achilles on right, negative Babinski Ambulatory with antalgic but steady gait Left lower extremity with strength and sensation intact Extrem General: normal to inspection Course Vital Signs Vital signs: Vital Signs Temperature 36.9 C 07/21/22 11:07 Pulse 97 H 07/21/22 11:07 Respiratory Rate 18 07/21/22 11:07 Blood Pressure 148/79 H 07/21/22 11:07 Pulse Oximetry 96 07/21/22 11:07 Temperature 35.8 C L 07/21/22 12:02 Temperature Source Tympanic 07/21/22 12:02 Pulse 94 H 07/21/22 12:02 Respiratory Rate 18 07/21/22 12:02 Respiratory Effort 07/21/22 11:09 Blood Pressure 148/97 H 07/21/22 12:02 Blood Pressure Position Supine 07/21/22 11:07 Pulse Oximetry 94 07/21/22 12:02 Oxygen Delivery Method Room Air 07/21/22 12:02 Oxygen Flow Rate 0 07/21/22 12:02 Pain Level 0 07/21/22 11:07 Lab/Test Results Lab/Test Results: Laboratory Tests Range/Units 07/21/22 07/21/22 07/21/22 11:42 11:42 11:42 WBC (4.4-10.8) 10^3/uL 8.94 RBC (3.93-5.22) 10^6/uL 4.44 Hgb (11.2-15.7) g/dL 14.5 Hct (36.0-46.0) % 42.5 MCV (80-95) fL 96 H MCH (27.0-33.0) pg 32.7 MCHC (32.0-36.0) % 34.1 RDW (11.7-14.6) % 13.2 Plt Count (130-400) 10^3/uL 265 MPV (8.0-11.0) fL 9.1 Immature Gran % 0.3 Neutrophils % 71.9 Lymphocytes % 19.6 Monocytes % 6.6 Eosinophils % 1.2 Basophils % 0.4 Nucleated RBC % (0.0-0.3) % 0.0 Absolute Neutrophils (1.2-6.7) 10^3/uL 6.42 Absolute Lymphocytes (1.2-3.4) 10^3/uL 1.75 Absolute Monocytes (0.1-0.8) 10^3/uL 0.59 Absolute Eosinophils (0.0-0.7) 10^3/uL 0.11 Absolute Basophils (0.0-0.2) 10^3/uL 0.04 Sodium (136-145) mmol/L 141 Potassium (3.5-5.1) mmol/L 3.7 Chloride (98-107) mmol/L 105 Carbon Dioxide (21.0-32.0) mmol/L 28.6 Anion Gap (3-11) mmol/L 7.4 BUN (7-18) mg/dL 10 Creatinine (0.55-1.02) mg/dL 0.9 Est GFR (CKD-EPI 2020) (mL/min/1.73m2) 71.39 Glucose (74-106) mg/dL 72 L Calcium (8.5-10.1) mg/dL 9.0 Magnesium (1.8-2.4) mg/dL 2.3 Cancelled Total Bilirubin (0.2-1.0) mg/dL 0.3 AST (15-37) U/L 13 L ALT (14-59) U/L 15 Alkaline Phosphatase (46-116) U/L 103 Total Protein (6.4-8.2) g/dL 7.4 Albumin (3.4-5.0) g/dL 4.0 TSH (0.36-3.74) uIU/mL 1.60
[2022-07-21 13:59] VITALS: BP 156/94; PULSE 90; RESP 18; TEMP 36.3; O2SAT 91
== END 2022-07-21 14:01 | disposition home or self-care (01) ==
PROVIDERS: Emergency Provider Physician Assistant; PCP Family Medicine
DX: M62.81 Muscle weakness (generalized) (principal); J44.9 Chronic obstructive pulmonary disease, unspecified; Z79.51 Long term (current) use of inhaled steroids
CPT/HCPCS: 36415; 70553; 80053; 93005; 99285; 83735; 84443; 85025; 93010

== ENCOUNTER 2022-08-14 13:09 | Emergency (ER) | payer MEDICAID, SELFPAY ==
[2022-08-14 13:23] VITALS: BP 150/79; PULSE 82; RESP 18; O2SAT 94
--- NOTE | 2022-08-14 13:30 | DI.MRI_ITS ---
Exam(s) MR CERVICAL SPINE WO EXAM: MR CERVICAL SPINE WO CLINICAL HISTORY: Right upper extremity numbness TECHNIQUE: Multiplanar multisequence MRI of the cervical spine was performed without intravenous con trast. COMPARISON: CR XR THORACIC SPINE COMPLETE from 12/10/2020 CR XR CHEST 2V PA LATERAL from 10/28/2021 FINDINGS: BONES: Vertebral body heights are maintained. Alignment is normal. Bone marrow signal intensity is wi thin normal limits. CERVICAL CORD: Craniovertebral junction is unremarkable. The cervical cord is normal size and signal intensity. SOFT TISSUES: Unremarkable. C2-3: No disc herniation or bulge is identified. Endplate osteophytes projecting laterally causing b ilateral neural foraminal narrowing, left greater than right.. No significant central canal stenosis C3-4: Prominent endplate osteophytes eccentric toward the left causing significant central canal sten osis as well as severe bilateral neural foraminal narrowing. There is apparent impingement on the co rd. Facet degenerative changes also present greater on right side. C4-5: Loss of normal disc height. Marked endplate osteophytes, eccentric toward the left causing sev ere central canal stenosis as well as severe bilateral neural foraminal narrowing. There is some corinna ma in the cervical cord at this level. 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 No disc herniation or bulge is identified. No evidence of neural fo raminal narrowing. No significant central canal stenosis C6-7: Loss of disc height. Prominent endplate osteophytes projecting circumferentially causing mild central canal stenosis as well as right neural foraminal narrowing. C7-T1 and T1-2: No disc herniation or bulge is identified. Facet osteophytes cause bilateral neural foraminal encroachment, right greater than left.. No significant central canal stenosis IMPRESSION: Severe degenerative disc changes, greatest at C 4 5 where there is severe narrowing of the central ca nal with impingement on the cervical cord and cord edema. Significant central canal stenosis is also noted at C3-4. Multilevel neural foraminal narrowing due to combination of disc osteophytes and facet joint encroach ment. Findings called to Jaleesa Avelar, emergency department provider. DATA REPOSITORY:
--- NOTE | 2022-08-14 13:36 | DI.MRI_ITS ---
Exam(s) MR LUMBAR SPINE WO EXAM: MR LUMBAR SPINE WO CLINICAL HISTORY: Right lower extremity numbness TECHNIQUE: Multiplanar multisequence MRI of the Lumbar Spine was performed. CONTRAST MATERIAL: Noncontrast COMPARISON: CR THORACIC SPINE from 12/03/2014 CR XR CHEST 2V PA LATERAL from 10/28/2021 FINDINGS: Bones: The last intervertebral disc space is designated the L5/S1 level for the numbering purpose of this examination. There is an old L1 compression fracture of the superior endplate, unchanged from p rior T-spine plain films. Alignment is satisfactory. The marrow signal characteristics are unremarka ble. Cord: The conus tip ends at the T12 level. It is of normal size and signal intensity. T12-L1: No disc herniations or bulges are present. L1-2: No disc herniations or bulges are present. L2-3: No disc herniations or bulges are present. Small bilateral nerve root sheath cysts. Mild fac et degenerative changes. L3-4: No disc herniations or bulges are present. Mild facet degenerative changes. Left-sided nerve root sheath cyst. L4-5: No disc herniations or bulges are present. Mild facet degenerative changes. L5-S1: No disc herniations or bulges are present. Nerve root sheath cysts bilaterally at S1 S2 Soft tissues: The visualized SI joints and sacrum are well maintained. The paraspinal soft tissues ar e unremarkable. IMPRESSION: No evidence of disc herniation. No evidence of significant spinal stenosis or neuroforaminal narrowi ng. Small nerve root sheath cysts are noted at multiple levels. DATA REPOSITORY:
--- NOTE | 2022-08-14 14:15 | W.ED.GENAD ---
Discharge Plan Disposition Patient Disposition: Against Medical Advice Condition: Serious Discharge Details Clinical Impression: Degenerative disc disease, cervical, Right sided weakness, Edema of spinal cord Primary Care Provider: Zhang Beckett ED Provider: Jaleesa Avelar Home Meds and New Rx's Prescriptions: Continued prednisone 10 mg tablet See Rx Instructions PO DAILY Qty: 21 0RF Rx Instructions: 6-5-4-3-2-1 tabs PO DAILY; take in AM with food albuterol sulfate [ProAir HFA] 90 mcg/actuation HFA aerosol inhaler 2 puff Inhalation Q4H PRN Qty: 3 3RF clopidogrel [Plavix] 75 mg tablet 75 mg PO DAILY Qty: 90 3RF Advair HFA 230-21 mcg/actuation HFA aerosol inhaler 2 inh Inhalation BID Qty: 36 3RF gabapentin 600 mg tablet 600 mg PO TID Qty: 270 3RF rosuvastatin [Crestor] 10 mg tablet 10 mg PO DAILY Qty: 90 3RF Spiriva with HandiHaler 18 mcg capsule, w/inhalation device 18 mcg Inhalation DAILY Qty: 90 3RF epinephrine [EpiPen 2-Luigi] 0.3 mg/0.3 mL auto-injector 0.3 mg IM ONCE PRN (Reason: anaphylaxis) Qty: 1 2RF Tylenol Extra Strength 500 mg powder in packet 1,000 mg PO Q6H PRN Label Comments: 08/23/21 using 1-2x/day for back pain famotidine [Heartburn Relief (famotidine)] 20 mg tablet 20 mg PO BID Qty: 180 3RF fluticasone propionate 50 mcg/actuation spray,suspension 1 spray intranasal BID Rx Instructions: administer into each nostril prednisone 20 mg tablet 40 mg PO DAILY Qty: 10 0RF Discharge Instructions Additional Instructions: As we discussed, I am very concerned about the findings on your MRI today. The lumbar MRI is still pending. However, the MRI of the the spine in your neck is showing that you have degenerative changes causing pressure on your spinal cord as well as associated swelling. This is likely was causing the right-sided weakness and sensation change in the left hand. As discussed, I would like for you to stay for further discussion with the counseling specialist at [facility]. Please know that you may return at anytime for continued care. Please return emergently with any new or worsening symptoms. Otherwise, please call your primary care as soon as possible to discuss these results and referral. I have also asked her care management team to help with referral to [facility] counseling specialist. Referrals: Zhang Beckett DO [Primary Care Provider] - Discharge Data Discharge Date/Time-TO BE ENTERED AT DEPARTURE: 08/14/22 17:03 Medical Decision Making <Duke Quiñonez NP - Last Filed: 08/16/22 08:11> Patient presenting to the emergency department for chief complaint of right arm and leg numbness and weakness, she states this is been going on for a while but right arm seems to become more progressive with symptoms initially being and just hands and now traveling further up the arm. Patient does also state now some tingling to left fingers. She denies any injury trauma fever chills, headaches, or other neurological symptoms. She does state that she has not been taking her Plavix as prescribed. Patient has significant past medical history of vitamin B12 deficiency, COPD, peripheral vascular disease, carotid artery stenosis. We will plan on checking labs including vitamin B12. Did review patient's previous medical records and patient did have some stenosis of the central canal of her cervical spine noted during last emergency department visit and was recommended to have MRI imaging of the C-spine and L-spine which she refused at that time. We will order advanced imaging pending lab results. Given that patient has been off of Plavix and states she has been taking a lot of acetaminophen will give small dose of IV ketorolac to see if this helps with patient's pain. Was not able to perform full physical exam pending patient going to MRI imaging due to RN initiating IV and orders along with MRI availability. Reviewed patient's labs and CBC is overall unremarkable, CMP shows slightly low AST at 13 and ALT at 12 otherwise all other LFTs are normal. Albumin slightly low at 3.3 and vitamin B12 is within normal range of 239. <MARAL Narvaez - Last Filed: 08/28/22 10:44> Patient presenting to the emergency department for chief complaint of right arm and leg numbness and weakness, she states this is been going on for a while but right arm seems to become more progressive with symptoms initially being and just hands and now traveling further up the arm. Patient does also state now some tingling to left fingers. She denies any injury trauma fever chills, headaches, or other neurological symptoms. She does state that she has not been taking her Plavix as prescribed. Patient has significant past medical history of vitamin B12 deficiency, COPD, peripheral vascular disease, carotid artery stenosis. We will plan on checking labs including vitamin B12. Did review patient's previous medical records and patient did have some stenosis of the central canal of her cervical spine noted during last emergency department visit and was recommended to have MRI imaging of the C-spine and L-spine which she refused at that time. We will order advanced imaging pending lab results. Given that patient has been off of Plavix and states she has been taking a lot of acetaminophen will give small dose of IV ketorolac to see if this helps with patient's pain. Was not able to perform full physical exam pending patient going to MRI imaging due to RN initiating IV and orders along with MRI availability. Reviewed patient's labs and CBC is overall unremarkable, CMP shows slightly low AST at 13 and ALT at 12 otherwise all other LFTs are normal. Albumin slightly low at 3.3 and vitamin B12 is within normal range of 239. [place]: Care transitioned to myself from Wes Quiñonez NP. Please see his his initial note regarding history, presentation and exam. In brief, patient is a pleasant 62 year old female presenting again for reevaluation of right sided weakness and left pointer, middle and ring finger numbness/tingling. She is been seen here historically and had MRI of her brain and then left prior to having imaging including of her C-spine for the significant weakness. Since then, her symptoms continue to progress. She reports that she is not been able to ambulate well for the past month. Is now not able to work. States that she lives on the third floor of her apartment building and is not able to leave her apartment because she is not able to come back up the stairs. No change in bowel or bladder habits. Denies any trauma or injury. MRI reviewed by radiologist. She notes severe DJD at C3-4, C4-5, C6-7. Notes impingement on the cord and cord edema at the C4-5 region. Lumbar MRI still pending. Discussed these with the patient. On exam, she is has notable weakness particularly in the right arm. She did need assistance with ambulation associated with the right-sided leg weakness. Reflexes diminished in the right arm, more intact in the right lower extremity. Sensation intact throughout. She also indicates the left index middle and ring finger as area where she is having some tingling. Given the cord edema and findings currently, I did not reach out to [facility] counseling specialist however, patient is insisting that she needs to leave. She states that she helps with her grandchildren needs to be able to go home. Patient is aware that she is leaving AGAINST MEDICAL ADVICE. We also discussed the significance associated with edema at these cord levels. She is not having any respiratory compromise and denies any shortness of breath. However, she would like to be able to leave despite these recommendations. I will continue to reach out to [facility]. Their MRI has been pushed to them. Encouraged the patient to follow-up as soon as possible. I have also asked our care management team to assist with emergent follow-up with the counseling specialist. Patient is aware that she may return anytime for continued management of this. After patient left the department AMA, spoke with orthopedics. They advised that they can see her in the clinic. They will call her to schedule f/u appointment. In the mean time, care at home with ambulation to prevent fall risk. I called the patient and advised ont he plan from the orthopedic group so that they will be called tomorrow to schedule follow up appointment. Again, she is aware that she may return at any time for continued care. HPI <Duke Quiñonez NP - Last Filed: 08/16/22 08:11> General Mode of arrival: ambulatory. Date/Time Provider Initiated Documentation: 08/14/22 13:10. Limitations to Documentation: no limitations. Information obtained by: patient and RN notes reviewed. History of Present Illness 62 year old F presents to the emergency department with the chief complaint of Right arm and leg numbness and tingling, described as moderate and similar to prior episodes, with intensity rated at 6. Quality is described as other (Tingling numbness), and is localized to the right and lower extremity. Patient started experiencing this month(s) and it has been constant. No relieving factors improve symptom(s), No exacerbating factors reported . Patient notes no other symptoms.. Patient did receive the following treatments prior to arrival, other (Acetaminophen) Related Data Home Medications Medication Instructions Recorded Confirmed epinephrine 0.3 mg/0.3 mL 0.3 mg (0.3 mL) IM ONCE PRN 01/06/20 08/14/22 injection, auto-injector (EpiPen anaphylaxis #1 ea 2-Luigi) acetaminophen 500 mg oral powder 1,000 mg PO Q6H PRN 08/23/21 08/14/22 packet (Tylenol Extra Strength) famotidine 20 mg tablet (Heartburn 20 mg PO BID GERD #180 tabs 08/23/21 08/14/22 Relief (famotidine)) fluticasone propionate 50 1 spray intranasal BID 10/18/21 08/14/22 mcg/actuation nasal spray,suspension albuterol sulfate 90 mcg/actuation 2 puff inhalation Q4H PRN ##3 10/19/21 08/14/22 aerosol inhaler (ProAir HFA) clopidogrel 75 mg tablet (Plavix) 75 mg PO DAILY #90 tab-caps 10/19/21 08/14/22 fluticasone propionate 230 2 inh inhalation BID #36 grams 10/19/21 08/14/22 mcg-salmeterol 21 mcg/actuation HFA inhaler (Advair HFA) gabapentin 600 mg tablet 600 mg PO TID #270 tabs 10/19/21 08/14/22 prednisone 10 mg tablet See Rx Instructions PO DAILY #21 10/19/21 08/14/22 tab-caps rosuvastatin 10 mg tablet (Crestor) 10 mg PO DAILY #90 tab-caps 10/19/21 08/14/22 tiotropium bromide 18 mcg capsule 18 mcg inhalation DAILY #90 10/19/21 08/14/22 with inhalation device (Spiriva tab-caps with HandiHaler) prednisone 20 mg tablet 40 mg PO DAILY #10 tabs 07/21/22 08/14/22 Previous Rx's Medication Instructions Recorded epinephrine 0.3 mg/0.3 mL 0.3 mg (0.3 mL) IM ONCE PRN 01/06/20 injection, auto-injector (EpiPen anaphylaxis #1 ea 2-Luigi) famotidine 20 mg tablet (Heartburn 20 mg PO BID GERD #180 tabs 08/23/21 Relief (famotidine)) albuterol sulfate 90 mcg/actuation 2 puff inhalation Q4H PRN ##3 10/19/21 aerosol inhaler (ProAir HFA) clopidogrel 75 mg tablet (Plavix) 75 mg PO DAILY #90 tab-caps 10/19/21 fluticasone propionate 230 2 inh inhalation BID #36 grams 10/19/21 mcg-salmeterol 21 mcg/actuation HFA inhaler (Advair HFA) gabapentin 600 mg tablet 600 mg PO TID #270 tabs 10/19/21 prednisone 10 mg tablet See Rx Instructions PO DAILY #21 10/19/21 tab-caps rosuvastatin 10 mg tablet (Crestor) 10 mg PO DAILY #90 tab-caps 10/19/21 tiotropium bromide 18 mcg capsule 18 mcg inhalation DAILY #90 10/19/21 with inhalation device (Spiriva tab-caps with HandiHaler) prednisone 20 mg tablet 40 mg PO DAILY #10 tabs 07/21/22 Allergies Allergy/AdvReac Type Severity Reaction Status Date / Time insect venom Allergy Severe requires Verified 08/18/22 10:56 epi-pen (black flies) erythromycin base AdvReac Unknown upset Verified 08/18/22 10:56 stomach DO NOT TAKE BP LEFT ARM AdvReac Uncoded 08/18/22 10:56 General Stated Complaint: GenMedical TRIPP: 3 Review of Systems <Duke Quiñonez NP - Last Filed: 08/16/22 08:11> Constitutional Constitutional: Denies chills, Denies fever(s), Denies headache(s) and Reports weakness Eyes Eyes: Denies change in vision ENT Ears, Nose, Mouth, and Throat: Denies vertigo, Denies dizziness and Denies headache(s) Cardiovascular Cardiovascular: Denies chest pain, Denies edema and Denies dyspnea Respiratory Respiratory: Denies cough and Denies dyspnea Musculoskeletal Musculoskeletal: Reports as per HPI, Reports numbness and Reports tingling Integumentary/Breasts Skin/Breast: Denies rash Neurologic Neurologic: Reports as per HPI, Denies confusion, Denies vertigo, Denies dizziness, Denies headache(s), Reports numbness, Reports tingling and Reports weakness Psychiatric Psychiatric: Denies confusion PFS <Duke Quiñonez NP - Last Filed: 08/16/22 08:11> All Active Problems (Updated 08/21/22 @ 00:05 by DEYSI MARTINEZ) Degenerative disc disease, cervical (Acute) Right sided weakness (Acute) Edema of spinal cord (Acute) Back pain (Acute) Elevated blood pressure reading without diagnosis of hypertension (Acute) Word finding difficulty (Chronic) GERD (gastroesophageal reflux disease) (Chronic) Left carotid artery occlusion (Acute 06/01/20) [facility] Vasc Surg Constipation (Chronic) Fatigue (Acute) Hip pain, bilateral (Acute) Knee pain, bilateral (Acute) Nocturnal leg cramps (Chronic) Anxiety (Acute 09/06/16) B12 deficiency (Acute 10/31/16) Carotid artery stenosis (Acute 12/09/13) 12-09-13: (L) ICA w/ high grade velocity; CEA 12/2013 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 RTC in 6 months with carotoid duplex Chronic obstructive lung disease (Acute 11/12/13) Family history of cardiovascular disease (Acute 11/12/13) father [place] 55 yo Intermittent claudication (Acute 11/12/13) (L) Iliofemoral endarterectomy 05/11/14 (L) Common Iliac artery Stent placement 05/11/14 (L) external Iliac stent graft 05/11/14 Pain in both feet (Acute 10/31/16) Peripheral polyneuropathy (Acute 10/19/15) Peripheral vascular disease (Acute 11/12/13) Pure hypercholesterolemia (Acute 11/12/13) Smoker (Acute 11/12/13) Subclavian artery stenosis, left (Acute 04/20/17) unsuccessful stenting attempt. Will need subclavian bypass if sx (amaurosis) recur Medical History Anxiety Carotid artery stenosis COPD (chronic obstructive pulmonary disease) Cough Diarrhea Maradiaga's neuroma of left foot Lesion of Plantar nerve, Left lower limb Maradiaga's neuroma of right foot Lesion of plantar nerve,right lower limb PVD (peripheral vascular disease) Smoker Surgical History aortogram (02/04/15) [facility] Dr Yun Archer , Ectopic (~1988) Right NIKI Stent Graft (02/04/15) [facility] Dr Yun Archer Right Iliofemoral Endartecectomy (02/04/15) [facility] Dr Yun Archer Right SFA Endarterectomy (02/04/15) [facility] Dr. Yun Archer Family History Mother Pancreatitis Father Hyperlipidemia Myocardial infarction Heart disease Brother Substance abuse ETOH Grandfather Myocardial infarction Grandmother Myocardial infarction Colon cancer high risk Aunt Osteosarcoma Uterine cancer Social History Smoking/Tobacco Use Status: Current every day Tobacco Type: cigarettes and e-cigarettes Tobacco: How many years used: 45 Quit status: considering quitting Smoking risk assessment performed?: Yes Alcohol Intake: never Drug use: Never Substance use type: does not use Housing: house Number of Children: 2 Communication Needs: Corrective Lenses Education Level: college 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 Current gender identity: female What is your relationship status?: Panel score (0-1 are the most socially isolated patients): 0 What type of physical activity do you participate in: none Seatbelt use: always Drive intox or ride w/intox trash truck driver: No Working smoke detector in home: Yes Carbon monox detector in home: Yes Do you feel safe at home: Yes Do you feel safe in your relationship?: Yes Exam <Duke Quiñonez NP - Last Filed: 08/16/22 08:11> Const General: cooperative, no acute distress and not ill appearing Orientation: alert, awake and oriented x3 HENMT Mouth: moist mucous membranes Resp Effort & Inspection: normal respiratory effort, able to speak in complete sentences and no respiratory distress Skin General skin exam: no rashes or lesions noted Neuro General: patient alert, patient awake, patient oriented x3 and moves all extremities Course <Duke Quiñonez NP - Last Filed: 08/16/22 08:11> Vital Signs Vital signs: Vital Signs Pulse 82 08/14/22 13:23 Respiratory Rate 18 08/14/22 13:23 Blood Pressure 150/79 H 08/14/22 13:23 Pulse Oximetry 94 08/14/22 13:23 Temperature Source Temporal Artery Scan 08/14/22 13:23 Pulse 82 08/14/22 13:23 Respiratory Rate 18 08/14/22 13:23 Respiratory Effort 08/14/22 13:27 Blood Pressure 150/79 H 08/14/22 13:23 Blood Pressure Position Sitting 08/14/22 13:23 Pulse Oximetry 94 08/14/22 13:23 Oxygen Delivery Method Room Air 08/14/22 13:23 Oxygen Flow Rate 0 08/14/22 13:23 Pain Level 6 08/14/22 13:23 Sign Out <Duke Quiñonez NP - Last Filed: 08/16/22 08:11> Sign Out Data: Sign Out Comment: Patient pending further physical examination and MRI imaging. Last updated by Duke Quiñonez NP at 08/14/22 15:44
[2022-08-14 14:32] LABS: Abs Immature Grans 0.03 10^3/uL (0.0-0.06); Absolute Basophil Count 0.03 10^3/uL (0.0-0.2); Absolute Eosinophil Count 0.14 10^3/uL (0.0-0.7); Absolute Lymphocyte Count 2.08 10^3/uL (1.2-3.4); Absolute Monocyte Count 0.53 10^3/uL (0.1-0.8); Absolute Neutrophil Count 4.86 10^3/uL (1.2-6.7); Basophils % 0.4; Eosinophils % 1.8; HCT 39.6 % (36.0-46.0); HGB 13.1 g/dL (11.2-15.7); Immature Grans % 0.4; Lymphocytes % 27.1; MCHC 33.1 % (32.0-36.0); MCV 97 fL (80-95); MPV 8.9 fL (8.0-11.0); Monocytes % 6.9; Neutrophils % 63.4; Platelet Count 313 10^3/uL (130-400); RDW-SD 46.3 fL; WBC 7.67 10^3/uL (4.4-10.8)
[2022-08-14] MEDS: Ketorolac 15 MG/ML VIAL IVP (14:37)
[2022-08-14 15:17] LABS: ALT 12 U/L (14-59); AST 13 U/L (15-37); Albumin 3.3 g/dL (3.4-5.0); Alkaline Phosphatase 116 U/L (46-116); BUN 8 mg/dL (7-18); Bilirubin, Total 0.2 mg/dL (0.2-1.0); CREATININE 0.8 mg/dL (0.55-1.02); Calcium 9.1 mg/dL (8.5-10.1); Chloride 104 mmol/L (98-107); Estimated GFR 82.23 (mL/min/1.73m2); Glucose 99 mg/dL (74-106); Magnesium 2.4 mg/dL (1.8-2.4); Potassium 4.3 mmol/L (3.5-5.1); Sodium 139 mmol/L (136-145); Total Protein 7.3 g/dL (6.4-8.2); Vitamin B12 239 pg/mL (193-986)
[2022-08-14 16:34] VITALS: BP 145/82; PULSE 81; RESP 16; O2SAT 95
--- NOTE | 2022-08-14 16:41 | NUR.NOTE ---
Nursing Note: Following conversation with Nurse Practitioner, pt notified this selling underwriter, I need to go. SWITCH BOX INSTALLER aware and preparing AMA. This selling underwriter discussed decision with pt, who advised, I have grandchildren to take care of. I set aside this amount of time to take care of this and now I have to go. This selling underwriter advised pt of risks of AMA, up to and including sudden . Pt verbalizes understanding. This selling underwriter further advised pt that despite her leaving that she can return at any time to continue care. Pt verbalizes understanding. AMA paperwork delivered to pt and appropriate signatures retrieved.
--- NOTE | 2022-08-14 16:45 | NUR.NOTE ---
Jaleesa has requested evaluation at [facility] Spine center re: Cervical spine impingement FARRUKH I have placed this request on the case management form. CLB
== END 2022-08-14 17:03 | disposition left against medical advice (07) ==
PROVIDERS: Nurse Practitioner Family; Emergency Provider Physician Assistant; PCP Family Medicine
DX: M50.30 Other cervical disc degeneration, unspecified cervical region (principal); G95.19 Other vascular myelopathies; R53.1 Weakness; J44.9 Chronic obstructive pulmonary disease, unspecified; R79.89 Other specified abnormal findings of blood chemistry; Z79.51 Long term (current) use of inhaled steroids
CPT/HCPCS: 80053; 96374; 99284; 72141; 72148; 82607; 83735; 85025; J1885

== ENCOUNTER 2022-08-18 12:28 | Emergency (ER) | payer MEDICAID, SELFPAY ==
[2022-08-18 12:41] VITALS: TEMP 36.2
--- NOTE | 2022-08-18 12:48 | NUR.NOTE ---
Patient left without being seen at 1248 clb
== END 2022-08-18 12:50 ==
LOC: ER 12:31
PROVIDERS: PCP Family Medicine
DX: Z53.21 Procedure and treatment not carried out due to patient leaving prior to being seen by health care provider (principal)

== ENCOUNTER 2022-09-07 00:02 | Outpatient (CLI) | payer MEDICAID, SELFPAY ==
--- NOTE | 2022-09-07 07:15 | DI.NM_ITS ---
APPROVED REPORT Exam: Pharmacologic Patient Location: Out-Patient Room/Bed: Stress Nurse: Neli Jarvis RN Ordering Provider:MARY ALICE RIVERA, Contact Number: [phone] BMI: 22.14 Baseline Rhythm: Sinus Rhythm Indications: pre-op, intermittent claudication Medical History Medical History: GERD, Left carotid artey occlusion, anxiety, carotid artery stenosis, cerbral infarc tion due to embolism, COPD, PVD, Smoker, subclavian artery stenosis Cardiac Medications: Rosuvastatin, Gabapentin, Fluticasone, famotidine, albuterol sulfate, clopidogre l Allergies: Erythromyocin Cardiac Risk Factors: Family Hx, PPVD, COPD, Smoker Previous Cardiac Procedures: None Pretest Chest Pain Characteristics: None Exercise History: Sedentary Physical Disabilities: Back Lung Sounds: Clear to auscultation Heart Sounds: Regular Stress Test Details Test: Pharmacologic stress testing performed using 0.4 mg of regadenoson per 5 mL given IV over 10 s econds. Nuclear Acquisition: Rest Tc-99m/Stress Tc-99m 1 day Rest Isotope: Tc-99m Sestamibi. Dose: 10 Date: 09/07/2022 Injection Time: 0915 Stress Isotope: Tc-99m Sestamibi. Dose: 32.8 Date: 09/07/2022 Injection Time: 1050 HR Resting HR Supine: 74 bpm Max Heart Rate (APMHR): 156.503494 bpm Target HR (85% APMHR): 132.576185 bpm Max HR Achieved: 107 bpm % of APMHR: 68.59 Recovery HR: 97 bpm BP Resting BP Supine: 140/76 mmHg Max BP: 140/76 mmHg Recovery BP: 132/74 mmHg ECG Resting ECG: Sinus Rhythm Ectopy: none Stress ECG: Sinus Rhythm ST Change: No significant ST segment changes noted Arrhythmia: None Recovery ECG: Sinus Rhythm Recovery ST Change: No significant ST segment changes noted Recovery Arrhythmia: None Clinical Rate Pressure Product: 53923 Stress ECG Conclusion 1. Resting electrocardiogram was within normal limits 2. Patient underwent testing using pharmacologic stress with regadenoson 3. The electrocardiographic portion of the test was nondiagnostic due to inadequate heart rate 4. See MPI report Stress Test Summary STAGE HR BP SpO2 Symptoms NOTES Supine 74 140/76 95 1 min post Lexiscan injection 107 126/70 97 SOB 3 min post Lexiscan injection 97 132/74 97 SOB gone 6 min post Lexiscan injection 94 Pharmacologica test was performed laying due to patients inability to ambulate from chronic spine crissy n and disc injury MPI Conclusion Myocardial perfusion is normal. There is no evidence of ischemia or prior infarction Measured EF is 44%. Overall LV function appears normal, normal wall motion Radiologist Interpretation Radiologist agrees with Gun Tester's Interpretation. Radiologist Interpretation by: Jerzy Bautista MD Interpretation Date/Time: 09/07/2022
[2022-09-07] MEDS: Regadenoson 0.4 MG/5 ML SYR IVP (10:47)
== END 2022-09-07 00:22 ==
LOC: DI 00:02
PROVIDERS: PCP Family Medicine; Visit Provider Family Medicine
DX: I73.9 Peripheral vascular disease, unspecified (principal)
CPT/HCPCS: 78452; 93017; J2785

== ENCOUNTER 2022-09-08 14:21 | Outpatient (CLI) | payer MEDICAID, SELFPAY ==
--- NOTE | 2022-09-08 14:15 | RT.EKG_ITS ---
APPROVED REPORT Exam: Resting ECG Reason for Exam: Preoperative evaluation Patient Location: O HR:88 bpm ECG Measurements Heart Rate [address] 122 P 60 QRSd 92 QRS 69 QT 392 T 92 QTc 475 Conclusion Sinus rhythm...normal P axis, V-rate 50- 99 Nonspecific T abnrm, anterolateral leads...T <-0.10mV, I aVL V2-V6
== END 2022-09-08 14:22 | disposition home or self-care (01) ==
LOC: DI.KIM 14:22
PROVIDERS: PCP Family Medicine; Visit Provider Family Medicine
DX: Z01.818 Encounter for other preprocedural examination (principal)
CPT/HCPCS: 93010

== ENCOUNTER 2022-09-12 01:20 | Outpatient (CLI) | payer MEDICAID, SELFPAY ==
--- NOTE | 2022-09-12 | DI.CT_ITS ---
Exam(s) CT CERVICAL SPINE WO EXAM: CT CERVICAL SPINE WO CLINICAL HISTORY: CERVICAL MYELOPATHY G95.9, NECK PAIN ASSESS BONY ANATOMY PREOP PLANNING. TECHNIQUE: Imaging Protocol: Axial computed tomography images with coronal and sagittal reformatted images were created and reviewed COMPARISON: MR MR CERVICAL SPINE WO from 08/14/2022 FINDINGS: Bones: No fracture or dislocations are seen. There is straightening of the normal cervical lordosis. There is a fusion of the C5 and C6 vertebral bodies. There are endplate osteophytes at C4-C5 and C6 -C7. Bilateral facet arthropathy is seen at multiple levels in the cervical spine. C2-3: There are mild hypertrophic changes seen at the facets on the left which may cause mild narrowi ng of the neural foramen. No significant central spinal canal stenosis. C3-4: There are hypertrophic changes of the facets, right greater than left. There is moderate right and mild left neural foraminal stenosis. There is a mildly prominent disc causing mild narrowing of the central spinal canal. C4-5: There is a prominent osteophyte at this level causing moderate narrowing of the central spinal canal. It is eccentric to the left. Degenerative changes of the facets are seen causing bilateral n eural foraminal narrowing, left greater than right. C5-6: There is a disc fusion at this level. No significant neural foraminal stenosis is seen. C6-7: Uncovertebral joint degenerative changes are seen. There may be mild right neural foraminal fo ramen present. No significant central spinal canal stenosis is seen. C7-T1: Normal. Soft Tissues: The soft tissues of the neck are unremarkable. Emphysematous changes are seen in the rhett ng apices. IMPRESSION: Multilevel degenerative changes in the cervical spine causing central spinal canal neural foraminal s tenosis as described above. RADIATION DOSE DELIVERED: 534.71mGy.cm Total DLP 534.71mGy.cm Total DLP DATA REPOSITORY: All CT scans at this facility are submitted to the National Radiology Data Registry (NRDR) Dose Index Registry (DIR) with the [employer] (A[employer]). RADIATION OPTIMIZATION: All CT scans at this facility use at least one of these dose optimization te chniques: automated exposure control; mA and/or kV adjustment per patient size (includes targeted exa ms where dose is matched to clinical indication); or iterative reconstruction.
== END 2022-09-12 01:40 ==
LOC: DI 01:21
PROVIDERS: PCP Family Medicine; Visit Provider Orthopaedic Surgery
DX: M47.812 Spondylosis without myelopathy or radiculopathy, cervical region (principal); M48.02 Spinal stenosis, cervical region
CPT/HCPCS: 72125

== ENCOUNTER 2022-09-12 01:21 | Outpatient (CLI) | payer MEDICAID, SELFPAY ==
--- NOTE | 2022-09-12 12:59 | DI.RAD_ITS ---
Exam(s) XR HIP RT COMPLETE AP PELVIS EXAM: XR HIP RT COMPLETE AP PELVIS CLINICAL HISTORY: Chronic hip pain,M25.559. TECHNIQUE: 2D digital imaging was performed of the right hip. Two images were obtained. AP pelvis a nd lateral right hip views were obtained. COMPARISON: No priors for comparison. FINDINGS: BONES: No acute fracture is present. No bony destructive lesion is seen. JOINTS: No dislocation present. There are degenerative changes seen in the lower lumbar spine. SOFT TISSUE: There are bilateral common iliac and external iliac artery stents. Atherosclerosis is p resent. IMPRESSION: 1. Unremarkable radiographs of the right hip. 2. Degenerative changes in the lumbar spine. DATA REPOSITORY: RADIATION DOSE DELIVERED:
== END 2022-09-12 01:41 ==
LOC: DI 01:21
PROVIDERS: PCP Family Medicine; Visit Provider Family Medicine
DX: G89.29 Other chronic pain (principal); M47.816 Spondylosis without myelopathy or radiculopathy, lumbar region
CPT/HCPCS: 73502

== ENCOUNTER 2022-09-25 03:09 | Outpatient (CLI) | payer MEDICAID, SELFPAY ==
[2022-09-25 16:50] LABS: INR 0.9 (0.9-1.1); Prothrombin Time 9.3 sec (9.3-11.0)
== END 2022-09-25 03:10 | disposition home or self-care (01) ==
PROVIDERS: PCP Family Medicine; Visit Provider Family Medicine
DX: I73.89 Other specified peripheral vascular diseases; Z79.01 Long term (current) use of anticoagulants; Z01.818 Encounter for other preprocedural examination
CPT/HCPCS: 36415; 85610

== ENCOUNTER 2023-04-13 16:04 | Emergency (ER) | payer MEDICARE, MEDICAID, SELFPAY ==
[2023-04-13 16:19] VITALS: BP 151/83; PULSE 96; RESP 20; TEMP 36.7; O2SAT 96
--- NOTE | 2023-04-13 17:01 | DI.RAD_ITS ---
Exam(s) XR CHEST 2V PA LATERAL EXAM: XR CHEST 2V PA LATERAL CLINICAL HISTORY: cough, productive TECHNIQUE: 2D digital imaging was performed. COMPARISON: CR XR CHEST 2V PA LATERAL from 10/28/2021 FINDINGS: HEART: Normal size. Aorta: Not dilated. PULMONARY VASCULATURE: Normal. LUNGS: Mildly hyperinflated but clear. PLEURAL SPACE: No pleural effusion or pneumothorax. BONE:Unremarkable for age. IMPRESSION: No acute abnormality. DATA REPOSITORY: RADIATION DOSE DELIVERED:
[2023-04-13 17:59] LABS: COVID-19 PCR Negative (Negative); Influenza A PCR Negative (Negative); Influenza B PCR Negative (Negative); RSV PCR Negative (Negative)
[2023-04-13 18:01] LABS: Source NASOPHARYNX
[2023-04-13 18:10] LABS: Abs Immature Grans 0.09 10^3/uL (0.0-0.06); Absolute Eosinophil Count 0.15 10^3/uL (0.0-0.7); Absolute Neutrophil Count 7.84 10^3/uL (1.2-6.7); Basophils % 0.4; Eosinophils % 1.3; Immature Grans % 0.8; Lymphocytes % 20.1; MCH 32.7 pg (27.0-33.0); MCHC 34.2 % (32.0-36.0); MCV 96 fL (80-95); MPV 8.8 fL (8.0-11.0); Monocytes % 7.2; Neutrophils % 70.2; Platelet Count 340 10^3/uL (130-400); RBC 3.97 10^6/uL (3.93-5.22); RDW 11.9 % (11.7-14.6); RDW-SD 41.2 fL; WBC 11.17 10^3/uL (4.4-10.8)
[2023-04-13 18:14] LABS: Absolute Basophil Count 0.04 10^3/uL (0.0-0.2); Absolute Lymphocyte Count 2.25 10^3/uL (1.2-3.4)
--- NOTE | 2023-04-13 18:22 | ED.GENADUL_ITS ---
Discharge Plan Disposition Patient Disposition: Left Without Being Seen Discharge Details Chief Complaint: RespSymp Primary Care Provider: Zhang Beckett ED Provider: Madelin Augustin Home Meds and New Rx's Prescriptions: No Action fluticasone propion-salmeterol [Advair HFA] 230-21 mcg/actuation HFA aerosol inhaler 2 inh Inhalation BID Qty: 36 3RF tiotropium bromide [Spiriva with HandiHaler] 18 mcg capsule, w/inhalation device 18 mcg Inhalation DAILY Qty: 90 3RF (DME) SI joing support belt See Rx Instructions .Route .MEDSUPPLY Qty: 1 0RF Rx Instructions: As directed (DME) Space Saver walker See Rx Instructions .Route .MEDSUPPLY Qty: 1 0RF Rx Instructions: As directed fluticasone propionate 50 mcg/actuation spray,suspension 1 spray intranasal BID Qty: 16 2RF Rx Instructions: administer into each nostril Tylenol Extra Strength 500 mg powder in packet 1,000 mg PO Q6H PRN Patient Comments: 08/23/21 using 1-2x/day for back pain epinephrine [EpiPen 2-Luigi] 0.3 mg/0.3 mL auto-injector 0.3 mg IM ONCE PRN (Reason: anaphylaxis) Qty: 1 2RF clopidogrel [Plavix] 75 mg tablet 75 mg PO DAILY Qty: 90 3RF rosuvastatin [Crestor] 10 mg tablet 10 mg PO DAILY Qty: 90 3RF famotidine [Heartburn Relief (famotidine)] 20 mg tablet 20 mg PO BID Qty: 180 3RF naproxen 500 mg tablet 500 mg PO BID PRN (Reason: pain) Qty: 60 0RF gabapentin 600 mg tablet 600 mg PO TID Qty: 270 3RF albuterol sulfate [Ventolin HFA] 90 mcg/actuation HFA aerosol inhaler See Rx Instructions .ROUTE .COMPLEX Qty: 54 3RF Dose Instruction: INHALE 2 PUFFS BY MOUTH EVERY 4 HOURS NEEDED Rx Instructions: INHALE 2 PUFFS BY MOUTH EVERY 4 HOURS NEEDED Medical Decision Making Patient presented to the emergency department for complaints of upper respiratory illness. Placed order for x-ray lab and COVID test. While awaiting results patient decided to leave prior to evaluation. I did not have contact with the patient prior to her departure HPI General Date/Time Provider Initiated Documentation: 04/13/23 16:24 . Related Data Home Medications Medication Instructions Recorded Confirmed acetaminophen 500 mg oral powder 1,000 mg PO Q6H PRN 08/23/21 04/13/23 packet (Tylenol Extra Strength) fluticasone propionate 230 2 inh inhalation BID #36 grams 10/19/21 04/13/23 mcg-salmeterol 21 mcg/actuation HFA inhaler (Advair HFA) tiotropium bromide 18 mcg capsule 18 mcg inhalation DAILY #90 08/28/22 04/13/23 with inhalation device (Spiriva tab-caps with HandiHaler) clopidogrel 75 mg tablet (Plavix) 75 mg PO DAILY #90 tab-caps 08/29/22 04/13/23 rosuvastatin 10 mg tablet (Crestor) 10 mg PO DAILY #90 tab-caps 08/29/22 04/13/23 epinephrine 0.3 mg/0.3 mL 0.3 mg (0.3 mL) IM ONCE PRN 11/30/22 04/13/23 injection, auto-injector (EpiPen anaphylaxis #1 ea 2-Luigi) famotidine 20 mg tablet (Heartburn 20 mg PO BID GERD #180 tabs 12/25/22 04/13/23 Relief (famotidine)) SI joing support belt #1 ea 01/05/23 01/05/23 Space Saver walker #1 ea 01/05/23 01/05/23 fluticasone propionate 50 1 spray intranasal BID #16 grams 01/05/23 04/13/23 mcg/actuation nasal spray,suspension gabapentin 600 mg tablet 600 mg PO TID #270 tabs 02/08/23 04/13/23 naproxen 500 mg tablet 500 mg PO BID PRN pain #60 tabs 02/08/23 04/13/23 albuterol sulfate 90 mcg/actuation See Rx Instructions .Route 02/15/23 04/13/23 aerosol inhaler (Ventolin HFA) .COMPLEX #54 grams Previous Rx's Medication Instructions Recorded fluticasone propionate 230 2 inh inhalation BID #36 grams 10/19/21 mcg-salmeterol 21 mcg/actuation HFA inhaler (Advair HFA) tiotropium bromide 18 mcg capsule 18 mcg inhalation DAILY #90 08/28/22 with inhalation device (Spiriva tab-caps with HandiHaler) clopidogrel 75 mg tablet (Plavix) 75 mg PO DAILY #90 tab-caps 08/29/22 rosuvastatin 10 mg tablet (Crestor) 10 mg PO DAILY #90 tab-caps 08/29/22 epinephrine 0.3 mg/0.3 mL 0.3 mg (0.3 mL) IM ONCE PRN 11/30/22 injection, auto-injector (EpiPen anaphylaxis #1 ea 2-Luigi) famotidine 20 mg tablet (Heartburn 20 mg PO BID GERD #180 tabs 12/25/22 Relief (famotidine)) SI joing support belt #1 ea 01/05/23 Space Saver walker #1 ea 01/05/23 fluticasone propionate 50 1 spray intranasal BID #16 grams 01/05/23 mcg/actuation nasal spray,suspension gabapentin 600 mg tablet 600 mg PO TID #270 tabs 02/08/23 naproxen 500 mg tablet 500 mg PO BID PRN pain #60 tabs 02/08/23 albuterol sulfate 90 mcg/actuation See Rx Instructions .Route 02/15/23 aerosol inhaler (Ventolin HFA) .COMPLEX #54 grams Allergies Allergy/AdvReac Type Severity Reaction Status Date / Time insect venom Allergy Severe requires Verified 04/13/23 16:21 epi-pen (black flies) erythromycin base AdvReac Unknown upset Verified 04/13/23 16:21 stomach DO NOT TAKE BP LEFT ARM AdvReac Uncoded 04/13/23 16:21 General Stated Complaint: RespSymp TRIPP: 3 PFSH All Active Problems (Updated 01/05/23 @ 14:29 by Zhang Beckett DO) Ambulatory dysfunction (Acute) Sacro-iliac pain (Acute) Cervical myelopathy (Acute) Cervical spinal cord compression (Acute) Back pain (Acute) Elevated blood pressure reading without diagnosis of hypertension (Acute) Word finding difficulty (Chronic) GERD (gastroesophageal reflux disease) (Chronic) Left carotid artery occlusion (Acute 06/01/20) [facility] Constipation (Chronic) Fatigue (Acute) Hip pain, bilateral (Acute) Knee pain, bilateral (Acute) Nocturnal leg cramps (Chronic) Anxiety (Acute 09/06/16) B12 deficiency (Acute 10/31/16) Carotid artery stenosis (Acute 12/09/13) 514: (L) ICA w/ high grade velocity; CEA 12/2013 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 RTC in 6 months with carotoid duplex Chronic obstructive lung disease (Acute 11/12/13) Family history of cardiovascular disease (Acute 11/12/13) father OR 55 yo Intermittent claudication (Acute 11/12/13) (L) Iliofemoral endarterectomy 05/11/14 (L) Common Iliac artery Stent placement 05/11/14 (L) external Iliac stent graft 05/11/14 Pain in both feet (Acute 10/31/16) Peripheral polyneuropathy (Acute 10/19/15) Peripheral vascular disease (Acute 11/12/13) Pure hypercholesterolemia (Acute 11/12/13) Smoker (Acute 11/12/13) Subclavian artery stenosis, left (Acute 04/20/17) unsuccessful stenting attempt. Will need subclavian bypass if sx (amaurosis) recur Medical History (Updated 01/05/23 @ 14:29 by Zhang Beckett DO) Anxiety Carotid artery stenosis COPD (chronic obstructive pulmonary disease) Cough Diarrhea Maradiaga's neuroma of left foot Lesion of Plantar nerve, Left lower limb Maradiaga's neuroma of right foot Lesion of plantar nerve,right lower limb PVD (peripheral vascular disease) Smoker Surgical History (Updated 11/14/22 @ 18:38 by Pau Magana) aortogram (02/04/15) [facility] [place] Yun [place] , Ectopic (~1988) Right NIKI Stent Graft (02/04/15) [facility] [place] Yun [place] Right Iliofemoral Endartecectomy (02/04/15) [facility] [place] Yun [place] Right SFA Endarterectomy (02/04/15) [facility] [place] Yun Archer S/P cervical spinal fusion (09/27/22) C3-C5 ACDF for myelopathy Family History Mother Pancreatitis Father Hyperlipidemia Myocardial infarction Heart disease Brother Substance abuse ETOH Grandfather Myocardial infarction Grandmother Myocardial infarction Colon cancer high risk Aunt Osteosarcoma Uterine cancer Social History Smoking/Tobacco Use Status: Current every day Tobacco Type: cigarettes and e- cigarettes Tobacco: How many years used: 45 Quit status: considering quitting Smoking risk assessment performed?: Yes Alcohol Intake: never Drug use: Never Substance use type: does not use Housing: house Number of Children: 2 Communication Needs: Corrective Lenses Education Level: college 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 Current gender identity: female What is your relationship status?: Panel score (0-1 are the most socially isolated patients): 0 What type of physical activity do you participate in: none Seatbelt use: always Drive intox or ride w/intox 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: No Working smoke detector in home: Yes Carbon monox detector in home: Yes Do you feel safe at home: Yes Do you feel safe in your relationship?: Yes Course Vital Signs Vital signs: Vital Signs Temperature 36.7 C 04/13/23 16:19 Pulse 96 H 04/13/23 16:19 Respiratory Rate 20 04/13/23 16:19 Blood Pressure 151/83 H 04/13/23 16:19 Pulse Oximetry 96 04/13/23 16:19 Temperature 36.7 C 04/13/23 16:19 Temperature Source Skin 04/13/23 16:19 Pulse 96 H 04/13/23 16:19 Respiratory Rate 20 04/13/23 16:19 Respiratory Effort Non-Labored, Short of Breath 04/13/23 16:25 Respiratory Depth Normal 04/13/23 16:25 Blood Pressure 151/83 H 04/13/23 16:19 Blood Pressure Position Sitting 04/13/23 16:19 Pulse Oximetry 96 04/13/23 16:19 Oxygen Delivery Method Room Air 04/13/23 16:19 Oxygen Flow Rate 0 04/13/23 16:19 Pain Level 1 04/13/23 16:19 Lab/Test Results Lab/Test Results: Laboratory Tests Range/Units 04/13/23 04/13/23 17:03 18:00 WBC (4.4-10.8) 10^3/uL 11.17 H RBC (3.93-5.22) 10^6/uL 3.97 Hgb (11.2-15.7) g/dL 13.0 Hct (36.0-46.0) % 38.0 MCV (80-95) fL 96 H MCH (27.0-33.0) pg 32.7 MCHC (32.0-36.0) % 34.2 RDW (11.7-14.6) % 11.9 Plt Count (130-400) 10^3/uL 340 MPV (8.0-11.0) fL 8.8 Immature Gran % 0.8 Neutrophils % 70.2 Lymphocytes % 20.1 Monocytes % 7.2 Eosinophils % 1.3 Basophils % 0.4 Nucleated RBC % (0.0-0.3) % 0.0 Absolute Neutrophils (1.2-6.7) 10^3/uL 7.84 H Absolute Lymphocytes (1.2-3.4) 10^3/uL 2.25 Absolute Monocytes (0.1-0.8) 10^3/uL 0.80 Absolute Eosinophils (0.0-0.7) 10^3/uL 0.15 Absolute Basophils (0.0-0.2) 10^3/uL 0.04 COVID-19 Source NASOPHARYNX SARS-CoV-2 (PCR) (Negative) Negative Influenza Type A (PCR) (Negative) Negative Influenza Type B (PCR) (Negative) Negative RSV (PCR) (Negative) Negative
[2023-04-13 18:27] LABS: ALT 14 U/L (14-59); AST 13 U/L (15-37); Albumin 3.9 g/dL (3.4-5.0); Alkaline Phosphatase 108 U/L (46-116); Anion Gap 11.3 mmol/L (3-11); BUN 12 mg/dL (7-18); Bilirubin, Total 0.4 mg/dL (0.2-1.0); CO2 24.7 mmol/L (21.0-32.0); CREATININE 0.8 mg/dL (0.55-1.02); Calcium 9.4 mg/dL (8.5-10.1); Chloride 104 mmol/L (98-107); Estimated GFR 81.72 (mL/min/1.73m2); Glucose 105 mg/dL (74-106); Potassium 3.9 mmol/L (3.5-5.1); Sodium 140 mmol/L (136-145); Total Protein 7.9 g/dL (6.4-8.2)
[2023-04-13 18:52] LABS: Procalcitonin < 0.1 ng/mL
== END 2023-04-13 18:23 | disposition left against medical advice (07) ==
PROVIDERS: Emergency Provider Nurse Practitioner Acute Care; PCP Family Medicine
DX: Z53.21 Procedure and treatment not carried out due to patient leaving prior to being seen by health care provider (principal)
CPT/HCPCS: 80053; 84145; 87637; 71046; 85025

== ENCOUNTER 2023-06-08 13:09 | Emergency (ER) | payer MEDICARE, MEDICAID, SELFPAY ==
[2023-06-08 13:15] VITALS: BP 88/64; PULSE 88; RESP 18; TEMP 36.2; O2SAT 99
--- NOTE | 2023-06-08 15:12 | W.ED.GENAD ---
Discharge Plan Disposition Patient Disposition: Home Condition: Stable Discharge Details Clinical Impression: Right lumbar radiculitis Primary Care Provider: Zhang Beckett ED Provider: Alfred Loyd [place] Meds and New Rx's Prescriptions: New lidocaine 5 % Adhesive Patch,Medicated 1 patch topical Q24H Qty: 15 0RF orphenadrine citrate 100 mg tablet extended release 100 mg PO BID Qty: 14 0RF prednisone 10 mg tablet 10 mg PO DIRECTED Qty: 36 0RF Rx Instructions: Take 40 mg daily for 3 days starting tomorrow then take 30 mg daily for 4 days then 20 mg daily for 4 days then 10 mg daily for 4 days. hydrocodone-acetaminophen 5-325 mg tablet 1 tab PO Q8H PRN (Reason: pain) Qty: 10 0RF Continued fluticasone propion-salmeterol [Advair HFA] 230-21 mcg/actuation HFA aerosol inhaler 2 inh Inhalation BID Qty: 36 3RF tiotropium bromide [Spiriva with HandiHaler] 18 mcg capsule, w/inhalation device 18 mcg Inhalation DAILY Qty: 90 3RF fluticasone propionate 50 mcg/actuation spray,suspension 1 spray intranasal BID Qty: 16 2RF Rx Instructions: administer into each nostril epinephrine [EpiPen 2-Luigi] 0.3 mg/0.3 mL auto-injector 0.3 mg IM ONCE PRN (Reason: anaphylaxis) Qty: 1 2RF clopidogrel [Plavix] 75 mg tablet 75 mg PO DAILY Qty: 90 3RF rosuvastatin [Crestor] 10 mg tablet 10 mg PO DAILY Qty: 90 3RF famotidine [Heartburn Relief (famotidine)] 20 mg tablet 20 mg PO BID Qty: 180 3RF gabapentin 600 mg tablet 600 mg PO TID Qty: 270 3RF albuterol sulfate [Ventolin HFA] 90 mcg/actuation HFA aerosol inhaler See Rx Instructions .ROUTE .COMPLEX Qty: 54 3RF Dose Instruction: INHALE 2 PUFFS BY MOUTH EVERY 4 HOURS NEEDED Rx Instructions: INHALE 2 PUFFS BY MOUTH EVERY 4 HOURS NEEDED Changed Tylenol Extra Strength 500 mg powder in packet 500 mg PO Q6H Qty: 0 0RF Patient Comments: 08/23/21 using 1-2x/day for back pain Held naproxen 500 mg tablet 500 mg PO BID PRN (Reason: pain) Qty: 60 0RF Hold Instructions: Resume on 06/24/23. once prednisone is finished No Action (DME) SI joing support belt See Rx Instructions .Route .MEDSUPPLY Qty: 1 0RF Rx Instructions: As directed (DME) Space Saver walker See Rx Instructions .Route .MEDSUPPLY Qty: 1 0RF Rx Instructions: As directed Discharge Instructions Instructions: Lumbar Radiculopathy (ED), Opioid Safety (ED) Additional Instructions: You were seen for right sided back pain with elements of sciatica. No evidence of cauda equina. Pelvis CT reveals no acute pathology. Prescriptions for prednisone, orphenadrine, lidocaine, hydrocodone/acetaminophen have been sent to pharmacy. Avoid nonsteroidals while taking prednisone. May continue your gabapentin. The hydrocodone does contain acetaminophen so I would only take 500 mg every 6 hours of Tylenol while taking the hydrocodone/acetaminophen. You should follow-up with primary care next week. Return to ED for any bladder or bowel issues, worsening numbness or weakness from baseline, other concerns. Referrals: Zhang Beckett, [Primary Care Provider] - Medical Decision Making Patient presenting with right lower lumbar/upper buttock pain and tenderness. Had sciatica-like symptoms about 3 weeks prior. Has minimal pain while sitting and has normal range of motion of the right lower extremity but has significant pain which inhibits ambulation when she attempts to stand. She has chronic right upper and lower extremity numbness and weakness which is unchanged and not worse. She has no perineal paresthesias or anesthesia. She has no true bladder or bowel dysfunction. She does not have evidence of cauda equina. She reports feeling a lump in the right iliac crest. She is definitely tender in this area but I cannot definitively feel a mass. I will obtain noncontrast pelvic CT. I will dose her with 40 mg of prednisone, apply lidocaine patch, give IM orphenadrine and oral Bruning. Did review the [facility] site. She has not had any prescriptions for narcotics except back in September status post surgery. HPI General Mode of arrival: ambulatory. Date/Time Provider Initiated Documentation: 06/08/23 13:27. Limitations to Documentation: no limitations. Information obtained by: patient. HPI Narrative: Patient presents to ED with right sided lumbar pain that has been radiating down the leg. Now not having pain so much radiating down the leg but just pain in the right lumbar/buttock area. This started about 3 weeks ago. She has marked pain when she attempts to bear weight. She does not have midline back pain. She has right sided numbness and weakness which is chronic and unchanged since a previous cervical spine surgery. It is no different and no worse. She denies any bladder or bowel dysfunction. She has sensation in the perineal area. She reports that she does not always make it to the bathroom but she does know when she needs to go just does not necessarily have time to get there. Denies any abdominal pain. Feels like there is a lump at the right iliac crest region. She tried taking some leftover prednisone last week but does not know the dosage and only took it for about 3 days. She has been taking her gabapentin and acetaminophen. She was using Naprosyn last week but has run out of it currently. Nothing that she tried was helping. She was seen at [facility] yesterday and given tramadol which did not help. qualitative field coordinator from primary care office contacted her today and referred her to ED because of reported bowel incontinence. Patient reports that its not truly incontinence and she knows she needs to go and tries to make it to the bathroom. She does not have incontinence in the sense of not knowing that she needs to go. Related Data Home Medications Medication Instructions Recorded Confirmed fluticasone propionate 230 2 inh inhalation BID #36 grams 10/19/21 06/08/23 mcg-salmeterol 21 mcg/actuation HFA inhaler (Advair HFA) tiotropium bromide 18 mcg capsule 18 mcg inhalation DAILY #90 08/28/22 06/08/23 with inhalation device (Spiriva tab-caps with HandiHaler) clopidogrel 75 mg tablet (Plavix) 75 mg PO DAILY #90 tab-caps 08/29/22 06/08/23 rosuvastatin 10 mg tablet (Crestor) 10 mg PO DAILY #90 tab-caps 08/29/22 06/08/23 epinephrine 0.3 mg/0.3 mL 0.3 mg (0.3 mL) IM ONCE PRN 11/30/22 06/08/23 injection, auto-injector (EpiPen anaphylaxis #1 ea 2-Luigi) famotidine 20 mg tablet (Heartburn 20 mg PO BID GERD #180 tabs 12/25/22 06/08/23 Relief (famotidine)) SI joing support belt #1 ea 01/05/23 06/08/23 Space Saver walker #1 ea 01/05/23 06/08/23 fluticasone propionate 50 1 spray intranasal BID #16 grams 01/05/23 06/08/23 mcg/actuation nasal spray,suspension gabapentin 600 mg tablet 600 mg PO TID #270 tabs 02/08/23 06/08/23 naproxen 500 mg tablet 500 mg PO BID PRN pain #60 tabs 02/08/23 06/08/23 albuterol sulfate 90 mcg/actuation See Rx Instructions .Route 02/15/23 06/08/23 aerosol inhaler (Ventolin HFA) .COMPLEX #54 grams acetaminophen 500 mg oral powder 500 mg PO Q6H #0 ea 06/08/23 06/08/23 packet (Tylenol Extra Strength) hydrocodone 5 mg-acetaminophen 325 1 tab PO Q8H PRN pain #10 tabs 06/08/23 mg tablet lidocaine 5 % topical patch 1 patch topical Q24H #15 ea 06/08/23 orphenadrine citrate 100 mg 100 mg PO BID #14 tabs 06/08/23 tablet,extended release prednisone 10 mg tablet 10 mg PO DIRECTED #36 tabs 06/08/23 Previous Rx's Medication Instructions Recorded fluticasone propionate 230 2 inh inhalation BID #36 grams 10/19/21 mcg-salmeterol 21 mcg/actuation HFA inhaler (Advair HFA) tiotropium bromide 18 mcg capsule 18 mcg inhalation DAILY #90 08/28/22 with inhalation device (Spiriva tab-caps with HandiHaler) clopidogrel 75 mg tablet (Plavix) 75 mg PO DAILY #90 tab-caps 08/29/22 rosuvastatin 10 mg tablet (Crestor) 10 mg PO DAILY #90 tab-caps 08/29/22 epinephrine 0.3 mg/0.3 mL 0.3 mg (0.3 mL) IM ONCE PRN 11/30/22 injection, auto-injector (EpiPen anaphylaxis #1 ea 2-Luigi) famotidine 20 mg tablet (Heartburn 20 mg PO BID GERD #180 tabs 12/25/22 Relief (famotidine)) SI joing support belt #1 ea 01/05/23 Space Saver walker #1 ea 01/05/23 fluticasone propionate 50 1 spray intranasal BID #16 grams 01/05/23 mcg/actuation nasal spray,suspension gabapentin 600 mg tablet 600 mg PO TID #270 tabs 02/08/23 naproxen 500 mg tablet 500 mg PO BID PRN pain #60 tabs 02/08/23 albuterol sulfate 90 mcg/actuation See Rx Instructions .Route 02/15/23 aerosol inhaler (Ventolin HFA) .COMPLEX #54 grams acetaminophen 500 mg oral powder 500 mg PO Q6H #0 ea 06/08/23 packet (Tylenol Extra Strength) hydrocodone 5 mg-acetaminophen 325 1 tab PO Q8H PRN pain #10 tabs 06/08/23 mg tablet lidocaine 5 % topical patch 1 patch topical Q24H #15 ea 06/08/23 orphenadrine citrate 100 mg 100 mg PO BID #14 tabs 06/08/23 tablet,extended release prednisone 10 mg tablet 10 mg PO DIRECTED #36 tabs 06/08/23 Allergies Allergy/AdvReac Type Severity Reaction Status Date / Time insect venom Allergy Severe requires Verified 06/08/23 13:17 epi-pen (black flies) erythromycin base AdvReac Unknown upset Verified 06/08/23 13:17 stomach DO NOT TAKE BP LEFT ARM AdvReac Uncoded 06/08/23 13:17 General Stated Complaint: Nk/Back Pain TRIPP: 3 Review of Systems Narrative: Per HPI PFSH All Active Problems (Updated 06/08/23 @ 17:17 by Alfred Loyd MD) Right lumbar radiculitis (Acute) Ambulatory dysfunction (Acute) Sacro-iliac pain (Acute) Cervical myelopathy (Acute) Cervical spinal cord compression (Acute) Back pain (Acute) Elevated blood pressure reading without diagnosis of hypertension (Acute) Word finding difficulty (Chronic) GERD (gastroesophageal reflux disease) (Chronic) Left carotid artery occlusion (Acute 06/01/20) [facility] [place] [facility] [place] Constipation (Chronic) Fatigue (Acute) Hip pain, bilateral (Acute) Knee pain, bilateral (Acute) Nocturnal leg cramps (Chronic) Anxiety (Acute 09/06/16) B12 deficiency (Acute 10/31/16) Carotid artery stenosis (Acute 12/09/13) 12-09-13: (L) ICA w/ high grade velocity; CEA 12/2013 Chronic obstructive lung disease (Acute 11/12/13) Family history of cardiovascular disease (Acute 11/12/13) father [place] 55 yo Intermittent claudication (Acute 11/12/13) (L) Iliofemoral endarterectomy 05/11/14 (L) Common Iliac artery Stent placement 05/11/14 (L) external Iliac stent graft 05/11/14 Pain in both feet (Acute 10/31/16) Peripheral polyneuropathy (Acute 10/19/15) Peripheral vascular disease (Acute 11/12/13) Pure hypercholesterolemia (Acute 11/12/13) Smoker (Acute 11/12/13) Subclavian artery stenosis, left (Acute 04/20/17) unsuccessful stenting attempt. 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 RTC in 6 months with carotoid duplex Maradiaga's neuroma of left foot Lesion of Plantar nerve, Left lower limb Maradiaga's neuroma of right foot Lesion of plantar nerve,right lower limb Smoker COPD (chronic obstructive pulmonary disease) PVD (peripheral vascular disease) Anxiety Carotid artery stenosis Surgical History S/P cervical spinal fusion (09/27/22) C3-C5 ACDF for myelopathy aortogram (02/04/15) [facility] [place] [facility] [place] Yun Archer Right SFA Endarterectomy (02/04/15) [facility] [place] [place]. Yun Archer Right Iliofemoral Endartecectomy (02/04/15) [facility] [place] [place] Yun Archer Right NIKI Stent Graft (02/04/15) [facility] [place] Dr Yun Archer , Ectopic (~1988) Family History Mother Pancreatitis Father Hyperlipidemia Myocardial infarction Heart disease Brother Substance abuse ETOH Grandfather Myocardial infarction Grandmother Myocardial infarction Colon cancer high risk Aunt Osteosarcoma Uterine cancer Social History Smoking/Tobacco Use Status: Current every day Tobacco Type: cigarettes and e-cigarettes Tobacco: How many years used: 45 Quit status: considering quitting Smoking risk assessment performed?: Yes Alcohol Intake: never Drug use: Never Substance use type: does not use Housing: house Number of Children: 2 Communication Needs: Corrective Lenses Education Level: college 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 HEENT: NC/AT. Normal facial exam. Eyes: Normal conjunctiva and sclera. Neck: Supple. Trachea midline. Lungs: Normal respiratory effort. Back: No LS spine tenderness. Tender with no definite mass appreciated over the upper right iliac wing. Neuro: A+O x 3. Normal speech, mentation. Cranial nerves II - XII grossly intact. Right sided weakness and numbness unchanged and chronic. Left side normal. Brisk and symmetric bilateral lower extremity reflexes. Ext: No C/C/E. Skin: Warm and dry without rash. Course Vital Signs Vital signs: Vital Signs Temperature 97.2 F L 06/08/23 13:15 Pulse 88 06/08/23 13:15 Respiratory Rate 18 06/08/23 13:15 Blood Pressure 88/64 L 06/08/23 13:15 Pulse Oximetry 99 06/08/23 13:15 Temperature 97.2 F L 06/08/23 13:15 Temperature Source Skin 06/08/23 13:15 Pulse 88 06/08/23 13:15 Respiratory Rate 18 06/08/23 13:15 Respiratory Effort Normal, Non-Labored 06/08/23 13:19 Blood Pressure 88/64 L 06/08/23 13:15 Blood Pressure Position Sitting 06/08/23 13:15 Pulse Oximetry 99 06/08/23 13:15 Oxygen Delivery Method Room Air 06/08/23 13:15 Oxygen Flow Rate 0 06/08/23 13:15 Pain Level 10 06/08/23 13:15
[2023-06-08] MEDS: HYDROcodone 5/Acetaminophen 325 TAB PO (15:43)
[2023-06-08] MEDS: Lidocaine 5% Patch 1 PATCH TP (15:44)
[2023-06-08] MEDS: predniSONE 20 MG TAB 40 MG PO (15:44)
[2023-06-08] MEDS: Orphenadrine 60 MG/2 ML VIAL IM (15:44)
--- NOTE | 2023-06-08 16:48 | DI.CT_ITS ---
Exam(s) CT PELVIC WO EXAM: CT PELVIC WO CLINICAL HISTORY: right iliac crest pain/lump. TECHNIQUE: Imaging Protocol: Axial computed tomography images with coronal and sagittal reformatted images were created and reviewed. CONTRAST MATERIAL: Oral: No. COMPARISON: No previous for comparison. FINDINGS: PELVIS: A marker was placed on the area of concern along the right flank. Abdominal Aorta: Abdominal portion non-dilated. Atherosclerosis. There are bilateral iliac artery st ents in place. Bowel: No obstruction or bowel wall thickening. Appendix is unremarkable. Peritoneal Cavity: No ascites, collection or mesenteric inflammatory response. No free air. Soft Tissues: No soft tissue mass is seen to correspond to the palpable abnormality. The right glute al musculature is unremarkable. The paraspinal musculature and abdominal wall musculature is unremar kable. Bladder: Symmetric distention, no gross wall thickening. Reproductive Organs: Unremarkable as visualized. Lymph Nodes: Within normal limits. Bones: Within normal limits for the patient's age. There is a linear lucency paralleling the sacroil iac joint with associated sclerosis in the left sacrum most suggestive of an insufficiency fracture. IMPRESSION: 1. No evidence of a soft tissue, muscular or osseous mass to correspond to the palpable concern on th e right flank. 2. Findings most suggestive of a left sacral insufficiency fracture. 3. Findings were discussed with Dr. Loyd at 5:12 p.m. on 06/08/2023. RADIATION DOSE DELIVERED: Total DLP Total DLP DATA REPOSITORY: All CT scans at this facility are submitted to the National Radiology Data Registry (NRDR) Dose Index Registry (DIR) with the [employer] (ACR). RADIATION OPTIMIZATION: All CT scans at this facility use at least one of these dose optimization te chniques: automated exposure control; mA and/or kV adjustment per patient size (includes targeted exa ms where dose is matched to clinical indication); or iterative reconstruction.
== END 2023-06-08 17:34 | disposition home or self-care (01) ==
PROVIDERS: Emergency Provider Emergency Medicine; PCP Family Medicine
DX: M51.16 Intervertebral disc disorders with radiculopathy, lumbar region (principal); I25.2 Old myocardial infarction; J44.9 Chronic obstructive pulmonary disease, unspecified; I73.9 Peripheral vascular disease, unspecified; Z98.1 Arthrodesis status; Z79.02 Long term (current) use of antithrombotics/antiplatelets; F17.210 Nicotine dependence, cigarettes, uncomplicated
CPT/HCPCS: 96372; 99284; J2360; 72192; 99283; J7512

== ENCOUNTER → 2023-06-22 00:29 | Outpatient (CLI) | payer MEDICARE, MEDICAID, SELFPAY ==
--- NOTE | 2023-06-22 15:30 | DI.MRI_ITS ---
Exam(s) MR LOWER JOINT RT WO EXAM: MR LOWER JOINT RT WO CLINICAL HISTORY: ? necrosis, fracture, torn lig/mm, SEVERE NEW Pain acute,si pain,m25.551, TECHNIQUE: Multiplanar multisequence MRI of Pelvis was performed COMPARISON: CR XR HIP RT COMPLETE AP PELVIS from 09/12/[address] PELVIC WO from 06/08/2023 FINDINGS: Bones: There are areas of hypointense signal seen paralleling the sacroiliac joints in the sacral al a bilaterally on the T1 weighted images. These correspond to hyperintense areas on the T2 weighted i mages. The findings are consistent with bilateral insufficiency sacral fractures. There is hypointe nse T1 and hyperintense T2 weighted signal seen in the right pubic bone at the symphysis pubis. This is consistent with a parasymphyseal insufficiency fracture. No other fractures identified. There i s no evidence of avascular necrosis of the femoral heads. The hips are grossly unremarkable. Musculotendinous structures: Musculotendinous structures demonstrate no abnormality. Intrapelvic str uctures demonstrate no significant abnormality. IMPRESSION: 1. Bilateral sacral insufficiency fractures. 2. Right parasymphyseal insufficiency fracture. Unexpected findings DATA REPOSITORY:
== END ==
PROVIDERS: PCP Family Medicine; Visit Provider Student in an Organized Health Care Education/Training Program
DX: M25.551 Pain in right hip (principal); M54.16 Radiculopathy, lumbar region; M48.48XA Fatigue fracture of vertebra, sacral and sacrococcygeal region, initial encounter for fracture
CPT/HCPCS: 73721

== ENCOUNTER 2023-08-19 19:39 | Emergency (ER) | payer MEDICARE, MEDICAID, SELFPAY ==
[2023-08-19] VITALS (8 sets, daily range): BP systolic 189–196; BP diastolic 01–109; PULSE 118–125; RESP 19–26; TEMP 37.2; O2SAT 87–96
--- NOTE | 2023-08-19 19:42 | ED.GENADUL_ITS ---
HPI General Date/Time Provider Initiated Documentation: 08/19/23 19:42 . HPI Narrative: MDM Patient was seen immediately on arrival. This is an uncomfortable appearing tachycardic and hypertensive but normothermic 63-year-old female with peripheral vascular disease and cool pulseless left lower extremity concerning for in-stent thrombosis versus embolism given off of clopidogrel for which she will go for CT angiogram of her abdomen pelvis with bilateral runoffs. Will obtain lactate, treat pain with fentanyl and initiate unfractionated heparin with 80 units/kg bolus followed by drip of 18 units/kg/h. Patient went down to CT scan and on my interpretation has no flow inferior to her infrarenal aorta. Given that she is off of clopidogrel this certainly could be the cause of her critical limb ischemia. Furthermore she has ongoing tobacco use. At 8:35 PM I placed a transfer request with the transfer center at [facility] for vascular surgery. Patient also received aspirin. Will treat pain with fentanyl. Patient has a nonischemic ECG however made significant troponin. She is not having any chest pain. She does have ST segment depressions in the left lateral chest wall leads and certainly secondary to her tachycardia she could be having demand ischemia. She is on a heparin drip. Will provide aspirin. Once I touch base with vascular we will determine whether or not they want clopidogrel. No significant calf tenderness to suggest DVT and no signs of DVT. No pain out of proportion to suggest necrotizing soft tissue infection. 8:55pm I spoke to Dr. Leal from vascular at [facility]. She agreed with heparin and asprin. She requested the patient be sent to the ED at [facility]. CTA concerning for aortic occlusion. 9:12 PM Patient was accepted by Dr. Thakur from the emergency department at [facility]. I asked vascular about her blood pressure to determine whether or not she would benefit from pushes of labetalol or nicardipine drip. Vascular agreed to treat elevated blood pressure likely secondary to pain with pushes of fentanyl. I have also paged cardiology at [facility] given concern for NSTEMI. I updated patient on plan for transfer. 9:46pm I spoke to Dr. Phillips from cards at [facility] advising him of the patient's pending arrival in the ED at [facility]. Patient received 0.5 mg of hydromorphone prior to tipple mechanic level transfer. Labs significant for leukocytosis but no anemia. No thrombocytopenia. Mildly elevated lactate at 2.1. No CRISTIANO. Mild gap acidosis. Mild hyperglycemia but normal bicarbonate??not consistent with DKA. Mildly elevated alkaline phosphatase. CT angio read as near total occlusion of mid infrarenal abdominal aorta with total occlusion of distal abd ominal aorta. Occlusion of each common iliac in each external iliac. Patent small caliber internal iliacs bilaterally. Occluded right common femoral artery. Patent right anterior tibial artery. Occluded left common femoral artery. 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 Chronic conditions affecting the care of the patient: Peripheral vascular disease History obtained from an outside historian: Paramedics External record review: [facility] EMR Diagnostic interpretations performed by me: Per my independent interpretation EKG shows: Narrow complex sinus tachycardia at a rate of 118. Normal axis. Intervals within normal limits. Left lateral chest wall ST segment depressions. No ST segment elevations. T wave inversion in aVL. Compared to prior T wave version is persistent in aVL however ST segment depressions are more pronounced. ]Medications: Aspirin clopidogrel aspirin fentanyl and hydromorphone Social determinants of health affecting disposition: N/A Management discussed with: Vascular, emergency medicine, and cardiology at [facility]. In addition I spoke with Shabbir jordan. Treatment/interventions considered: N/A Response to therapies provided: Mildly improved pain following analgesia in the ED HPI This is a 63-year-old female with significant peripheral vascular disease and a history of carotid stenosis, left iliofemoral endarterectomy arrived to the emergency department via paramedics in the setting of left lower extremity pain. Patient reports that she developed pain this afternoon in her left lower extremity. She continues smoking. She has been off of her clopidogrel for several weeks. She has intermittently had pain that feels as if it is a charley horse. This generally resolves. This evening her pain has not resolving and she is having difficulty feeling and moving her left lower extremity below her knee. She has had no recent falls. She denies chest pain shortness of breath. She generally has a care provider with whom she stays. She took Vicodin and acetaminophen this afternoon. Exam General: Uncomfortable-appearing in no acute distress speaking in complete sentences. Head: Normocephalic, atraumatic. Eye: Extraocular eye movements intact. No conjunctival injection. No scleral icterus. Ear, nose, mouth, throat: Grossly normal inspection. Normal voice, handling secretions normally. Neck: Trachea midline. Cardiovascular: Rapid regular rate. Critical limb ischemia see below. Respiratory: Nonlabored respiration. Clear lungs bilaterally Gastrointestinal: Nondistended abdomen. Soft nontender. Musculoskeletal: Left lower extremity cool white pulseless no palpable pulses. Please see ultrasound with no obvious Doppler signals. No sensation below knee. No motor function below knee. Right lower extremity cap refill approximately 4 seconds slightly less cool but pale. No palpable lower extremity pulses. Sensation intact throughout right lower extremity. Patient is able to dorsi and plantarflex with 3 out of 5 s trength of the right. Skin: Normal for age and race, grossly normal temperature and turgor. No acute rash. Neurologic: Alert and appropriate, no apparent acute deficits. Related Data Home Medications Medication Instructions Recorded Confirmed clopidogrel 75 mg tablet (Plavix) 75 mg PO DAILY #90 tab-caps 08/29/22 08/19/23 epinephrine 0.3 mg/0.3 mL 0.3 mg (0.3 mL) IM ONCE PRN 11/30/22 08/19/23 injection, auto-injector (EpiPen anaphylaxis #1 ea 2-Luigi) famotidine 20 mg tablet (Heartburn 20 mg PO BID GERD #180 tabs 12/25/22 08/19/23 Relief (famotidine)) fluticasone propionate 50 1 spray intranasal BID #16 grams 01/05/23 08/19/23 mcg/actuation nasal spray,suspension gabapentin 600 mg tablet 600 mg PO TID #270 tabs 02/08/23 08/19/23 albuterol sulfate 90 mcg/actuation See Rx Instructions .Route 02/15/23 08/19/23 aerosol inhaler (Ventolin HFA) .COMPLEX #54 grams acetaminophen 500 mg oral powder 500 mg PO Q6H #0 ea 06/08/23 08/19/23 packet (Tylenol Extra Strength) orphenadrine citrate 100 mg 100 mg PO BID #14 tabs 06/08/23 08/19/23 tablet,extended release lidocaine 5 % topical patch 1 patch topical Q24H #15 ea 06/15/23 08/19/23 rosuvastatin 10 mg tablet (Crestor) 10 mg PO DAILY #90 tab-caps 06/15/23 08/19/23 SI joint support belt #1 ea 06/25/23 07/31/23 air mattress #1 ea 06/25/23 07/31/23 hospital bed #1 ea 06/25/23 07/31/23 naproxen 500 mg tablet 500 mg PO BID PRN pain & 06/29/23 08/19/23 INFLAMMATION #60 tabs Space Saver walker #1 ea 07/10/23 07/31/23 fluticasone propionate 230 2 inh inhalation BID #36 grams 07/31/23 08/19/23 mcg-salmeterol 21 mcg/actuation HFA inhaler (Advair HFA) hydrocodone 5 mg-acetaminophen 325 1 tab PO Q8H PRN severe hip pain 07/31/23 08/19/23 mg tablet #60 tabs tiotropium bromide 18 mcg capsule 18 mcg inhalation DAILY #90 07/31/23 08/19/23 with inhalation device (Spiriva tab-caps with HandiHaler) Previous Rx's Medication Instructions Recorded clopidogrel 75 mg tablet (Plavix) 75 mg PO DAILY #90 tab-caps 08/29/22 epinephrine 0.3 mg/0.3 mL 0.3 mg (0.3 mL) IM ONCE PRN 11/30/22 injection, auto-injector (EpiPen anaphylaxis #1 ea 2-Luigi) famotidine 20 mg tablet (Heartburn 20 mg PO BID GERD #180 tabs 12/25/22 Relief (famotidine)) fluticasone propionate 50 1 spray intranasal BID #16 grams 01/05/23 mcg/actuation nasal spray,suspension gabapentin 600 mg tablet 600 mg PO TID #270 tabs 02/08/23 albuterol sulfate 90 mcg/actuation See Rx Instructions .Route 02/15/23 aerosol inhaler (Ventolin HFA) .COMPLEX #54 grams acetaminophen 500 mg oral powder 500 mg PO Q6H #0 ea 06/08/23 packet (Tylenol Extra Strength) orphenadrine citrate 100 mg 100 mg PO BID #14 tabs 06/08/23 tablet,extended release lidocaine 5 % topical patch 1 patch topical Q24H #15 ea 06/15/23 rosuvastatin 10 mg tablet (Crestor) 10 mg PO DAILY #90 tab-caps 06/15/23 SI joint support belt #1 ea 06/25/23 air mattress #1 ea 06/25/23 hospital bed #1 ea 06/25/23 naproxen 500 mg tablet 500 mg PO BID PRN pain & 06/29/23 INFLAMMATION #60 tabs Space Saver walker #1 ea 07/10/23 fluticasone propionate 230 2 inh inhalation BID #36 grams 07/31/23 mcg-salmeterol 21 mcg/actuation HFA inhaler (Advair HFA) hydrocodone 5 mg-acetaminophen 325 1 tab PO Q8H PRN severe hip pain 07/31/23 mg tablet #60 tabs tiotropium bromide 18 mcg capsule 18 mcg inhalation DAILY #90 07/31/23 with inhalation device (Spiriva tab-caps with HandiHaler) Allergies Allergy/AdvReac Type Severity Reaction Status Date / Time insect venom Allergy Severe requires Verified 07/31/23 15:53 epi-pen (black flies) erythromycin base AdvReac Unknown upset Verified 07/31/23 15:53 stomach DO NOT TAKE BP LEFT ARM AdvReac Uncoded 07/31/23 15:53 General TRIPP: 3 Medical Decision Making Quality:SDOH Health Related Social Needs: No Data to Display Critical Care Time Critical Care Time Critical Care Time: Yes Total Critical Care Time: 60 Attestation: Bedside assessment and management of critical limb ischemia along with consultation with vascular at [facility]. PFSH All Active Problems (Updated 08/19/23 @ 21:16 by Gagandeep Zapata MD) Aortic occlusion (Acute) Critical limb ischemia of both lower extremities (Acute) Osteoporosis with pathological fracture (Acute) Insufficiency fracture of pelvis (Acute) rt parasymph; b/l sacral 2' fall+presumed osteoporosis Peripheral polyneuropathy (Acute 10/19/15) Peripheral vascular disease (Acute 11/12/13) Decreased circulation (Acute) Intermittent claudication (Acute 11/12/13) (L) Iliofemoral endarterectomy 05/11/14 (L) Common Iliac artery Stent placement 05/11/14 (L) external Iliac stent graft 05/11/14 Spinal accessory neuropathy (Acute) Disturbed sensory perception (Acute) At risk of pressure ulcer (Acute) Decreased mobility of joint of right side of pelvis (Acute) Decreased mobility in bed (Acute) Age-related osteoporosis with current pathological fracture of pelvis (Acute) presumed osteoporosis; insuff Fx defining path Fx Homelessness (Acute) [employer], but no plan and limited transportation Acute right hip pain (Acute) New, different rt hip/iliac(?) pain .. severe .. unable to bear weight ((Rt hip pain, prox to hip joint, iliac crest)) Ambulatory dysfunction (Acute) Sacro-iliac pain (Acute) chronic? (XR in Aug 2022 per ov w/ TM 2' DDx SI Pain) <-- was this the beg of insufficiency Fx? (Hx old L1 compression fracture, unchanged since 2019) Cervical myelopathy (Acute) Cervical spinal cord compression (Acute) Back pain (Acute) Elevated blood pressure reading without diagnosis of hypertension (Acute) Word finding difficulty (Chronic) GERD (gastroesophageal reflux disease) (Chronic) Left carotid artery occlusion (Acute 06/01/20) [facility] Vasc Surg Constipation (Chronic) Fatigue (Acute) Hip pain, bilateral (Acute) Knee pain, bilateral (Acute) Nocturnal leg cramps (Chronic) Anxiety (Acute 09/06/16) B12 deficiency (Acute 10/31/16) Carotid artery stenosis (Acute 12/09/13) 12-09-13: (L) ICA w/ high grade velocity; CEA 12/2013 Chronic obstructive lung disease (Acute 11/12/13) Family history of cardiovascular disease (Acute 11/12/13) father [place] 55 yo Pain in both feet (Acute 10/31/16) Pure hypercholesterolemia (Acute 11/12/13) Smoker (Acute 11/12/13) Subclavian artery stenosis, left (Acute 04/20/17) unsuccessful stenting attempt. 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 RTC in 6 months with carotoid duplex Maradiaga's neuroma of left foot Lesion of Plantar nerve, Left lower limb Maradiaga's neuroma of right foot Lesion of plantar nerve,right lower limb Smoker COPD (chronic obstructive pulmonary disease) PVD (peripheral vascular disease) Anxiety Carotid artery stenosis Surgical History S/P cervical spinal fusion (09/27/22) C3-C5 ACDF for myelopathy aortogram (02/04/15) [facility] Dr Yun Archer Right SFA Endarterectomy (02/04/15) [facility] Dr. Yun Archer Right Iliofemoral Endartecectomy (02/04/15) [facility] Dr Yun Archer Right NIKI Stent Graft (02/04/15) [facility] Dr Yun Archer , Ectopic (~1988) Family History Mother Pancreatitis Father Hyperlipidemia Myocardial infarction Heart disease Brother Substance abuse ETOH Grandfather Myocardial infarction Grandmother Myocardial infarction Colon cancer high risk Aunt Osteosarcoma Uterine cancer Social History Smoking/Tobacco Use Status: Current every day Tobacco Type: cigarettes and e- cigarettes Tobacco: How many years used: 45 Quit status: considering quitting Smoking risk assessment performed?: Yes Alcohol Intake: never Drug use: Never Substance use type: does not use Housing: house Number of Children: 2 Communication Needs: Corrective Lenses Education Level: college 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 Discharge Details Clinical Impression: Critical limb ischemia of both lower extremities, Aortic occlusion Primary Care Provider: Zhang Beckett ED Provider: Gagandeep Zapata Meds and New Rx's Prescriptions: No Action fluticasone propionate 50 mcg/actuation spray,suspension 1 spray intranasal BID Qty: 16 2RF Rx Instructions: administer into each nostril (DME) Space Saver walker See Rx Instructions .Route .MEDSUPPLY Qty: 1 0RF Rx Instructions: Is it possible to find a foldable, small-profile walker? epinephrine [EpiPen 2-Luigi] 0.3 mg/0.3 mL auto-injector 0.3 mg IM ONCE PRN (Reason: anaphylaxis) Qty: 1 2RF lidocaine 5 % adhesive patch,medicated 1 patch topical Q24H Qty: 15 1RF Rx Instructions: Re-try lidocaine for outer hip pain (DME) hospital bed See Rx Instructions .Route .MEDSUPPLY Qty: 1 0RF Rx Instructions: Hospital bed with adjustable head/foot for pain mgmt & repositioning needs (DME) SI joint support belt See Rx Instructions .Route .MEDSUPPLY Qty: 1 0RF Rx Instructions: As directed (DME) air mattress hospital bed See Rx Instructions .Route .MEDSUPPLY Qty: 1 0RF Rx Instructions: Use with hospital bed to manage limited mobility, reduced sensory perception & compromised circulatory status fluticasone propion-salmeterol [Advair HFA] 230-21 mcg/actuation HFA aerosol inhaler 2 inh Inhalation BID Qty: 36 3RF tiotropium bromide [Spiriva with HandiHaler] 18 mcg capsule, w/inhalation device 18 mcg Inhalation DAILY Qty: 90 3RF hydrocodone-acetaminophen 5-325 mg tablet 1 tab PO Q8H MDD 15mg hydrocod PRN (Reason: severe hip pain) Qty: 60 0RF Rx Instructions: Continue @ q8-12h; goal: taper to 2/day. May need stool softener. clopidogrel [Plavix] 75 mg tablet 75 mg PO DAILY Qty: 90 3RF Hold Instructions: No longer needed per TM per pt report famotidine [Heartburn Relief (famotidine)] 20 mg tablet 20 mg PO BID Qty: 180 3RF gabapentin 600 mg tablet 600 mg PO TID Qty: 270 3RF albuterol sulfate [Ventolin HFA] 90 mcg/actuation HFA aerosol inhaler See Rx Instructions .ROUTE .COMPLEX Qty: 54 3RF Dose Instruction: INHALE 2 PUFFS BY MOUTH EVERY 4 HOURS NEEDED Rx Instructions: INHALE 2 PUFFS BY MOUTH EVERY 4 HOURS NEEDED rosuvastatin [Crestor] 10 mg tablet 10 mg PO DAILY Qty: 90 3RF naproxen 500 mg tablet 500 mg PO BID PRN (Reason: pain & INFLAMMATION) Qty: 60 1RF Hold Instructions: Resume on 06/24/23. once prednisone is finished Rx Instructions: Take WITH FOOD (P-butter) for inflammation, NOT WITH PREDNISONE orphenadrine citrate 100 mg tablet extended release 100 mg PO BID Qty: 14 0RF Tylenol Extra Strength 500 mg powder in packet 500 mg PO Q6H Qty: 0 0RF Patient Comments: 08/23/21 using 1-2x/day for back pain Discharge Data Discharge Date/Time-TO BE ENTERED AT DEPARTURE: 08/19/23 21:32 POCUS Exam (ED) Limited Vascular Exam DATE OF EXAM: 08/19/23 TIME OF EXAM: 20:40 PROVIDER THAT PERFORMED THE STUDY: Gagandeep Zapata IS THIS A REPEAT EXAM DURING THIS ENCOUNTER: No Vascular Exam: Left lower extremity REASON FOR EXAM: Left lower extremity pain Exam Complete DIFFERENTIAL DIAGNOSES: No pulsatile blood flow in left lower extremity.
--- NOTE | 2023-08-19 20:00 | RT.EKG_ITS ---
APPROVED REPORT Exam: Resting ECG Reason for Exam: tachycardic Patient Location: E HR:118 bpm ECG Measurements Heart Rate 118 AXIS DE 137 P 57 QRSd 94 QRS 69 QT 353 T 99 QTc 495 Conclusion Sinus tachycardia...rate> 99 Nonspecific repol abnormality, diffuse leads...ST dep, T flat/neg, ant/lat/inf Narrow complex sinus tachycardia at a rate of 118. Normal axis. Intervals within normal limits. Le ft lateral chest wall ST segment depressions. No ST segment elevations. T wave inversion in aVL. C ompared to prior T wave version is persistent in aVL however ST segment depressions are more pronounc ed.
--- NOTE | 2023-08-19 20:01 | DI.CT_ITS ---
Exam(s) CT ABD AORTA CTA W RUNOFF EXAM: CT ABD AORTA CTA W RUNOFF CLINICAL HISTORY: Concern for left knee ischemia. TECHNIQUE: Imaging Protocol: Axial CT angiography was performed with multi-slice acquisition and mu lti-planar and/or 3D reconstructions. CONTRAST MATERIAL: Intravenous: Omnipaque 350 Contrast volume:150 mL Oral: No COMPARISON: CT CT CHEST LUNG CANCER SCREEN from 01/23/[address] PELVIC WO from 06/08/2023 FINDINGS: Vascular Structures: Abdomen and pelvis: Celiac Haworth/SMA: No evidence of occlusion or significant stenosis. Renal Arteries: No evidence of occlusion or significant stenosis. There is a single renal artery perf using each kidney. Aorta: There is total occlusion of the distal abdominal aorta. There is atherosclerosis. There is ectasia but no aneurysmal dilatation. No dissection. Iliac Arteries: There are bilateral common iliac stents extending into the external iliac arteries. There is complete occlusion of the common iliac arteries and the external iliac arteries bilaterally . There is blood flow seen in the internal iliac arteries. Lower extremities: Right: Common Femoral: There is occlusion of the common femoral artery. Femoral: There is occlusion of the right femoral artery with reconstitution distally. Deep Femoral Artery: There is reconstitution/patency of the deep femoral artery. Popliteal: There is some flow seen in the right popliteal artery. Knee Trifurcation: There is flow seen in the proximal and mid anterior tibial artery with occlusion d istally. There are areas of stenosis seen in the posterior tibialis and peroneal artery with occlusi on at the mid calf. Left: Common Femoral: There is occlusion of the common femoral artery. Femoral: There is occlusion of the femoral artery with some reconstitution distally.. Deep femoral artery: There is reconstitution/patency of the deep femoral artery. Popliteal: There is a small amount of flow seen in the popliteal artery with occlusion of the trifur cation. Knee Trifurcation: There is occlusion. There is occlusion of the calf arteries. Soft Tissues: Lung bases: Mild dependent atelectasis. Liver: There is diffuse decreased attenuation of the liver suggesting fatty infiltration. No measura ble mass. Gallbladder and biliary tract: No radiodense calculus or dilation. Pancreas: Normal density, no abnormal calcifications or inflammatory process. Spleen: Normal. Kidneys: Normal size, contour and axis. Right nephrolithiasis. No obstructive uropathy. No masses s een. Adrenal glands: No masses seen. Bladder: Symmetric distention, no gross wall thickening. Bowel: No obstruction or bowel wall thickening. The appendix is unremarkable. Peritoneal cavity: No ascites, collection or mesenteric inflammatory response. No free air. Bones: Within normal limits for the patient's age. There are bilateral sclerotic foci in the sacral ala with disruption of the cortex seen on the left. The findings are most suggestive of bilateral sa cral insufficiency fractures. IMPRESSION: 1. Occlusion of the distal abdominal aorta. There is occlusion of the common iliac, external iliacs and common femoral arteries bilaterally. 2. On the right, there is occlusion of the proximal to mid femoral artery with reconstitution of the distal superficial femoral artery and right popliteal artery. There is occlusion of the distal right anterior tibial artery and distal right peroneal and posterior tibial arteries. 3. On the left, there is occlusion of the proximal left superficial femoral artery and occlusions of the trifurcation, left peroneal, left anterior tibial and posterior tibial arteries. RADIATION DOSE DELIVERED: 996.51mGy.cm Total DLP 996.51mGy.cm Total DLP DATA REPOSITORY: All CT scans at this facility are submitted to the National Radiology Data Registry (NRDR) Dose Index Registry (DIR) with the [employer] (A[employer]). RADIATION OPTIMIZATION: All CT scans at this facility use at least one of these dose optimization te chniques: automated exposure control; mA and/or kV adjustment per patient size (includes targeted exa ms where dose is matched to clinical indication); or iterative reconstruction.
[2023-08-19 20:12] LABS: Abs Immature Grans 0.05 10^3/uL (0.0-0.06); Absolute Basophil Count 0.05 10^3/uL (0.0-0.2); Absolute Lymphocyte Count 1.27 10^3/uL (1.2-3.4); Absolute Monocyte Count 0.65 10^3/uL (0.1-0.8); Basophils % 0.4; HGB 15.3 g/dL (11.2-15.7); Immature Grans % 0.4; Lymphocytes % 9.6; MCH 30.6 pg (27.0-33.0); MCV 90 fL (80-95); MPV 9.8 fL (8.0-11.0); Monocytes % 4.9; Neutrophils % 84.7; Platelet Count 184 10^3/uL (130-400); RDW 12.3 % (11.7-14.6); RDW-SD 40.3 fL; WBC 13.27 10^3/uL (4.4-10.8)
[2023-08-19 20:13] LABS: Lactate 2.1 mmol/L (0.6-1.4)
[2023-08-19] MEDS: fentaNYL 100 MCG/2 ML VIAL 50 MCG IVP (20:14)
[2023-08-19] MEDS: Aspirin 81 MG CHEW 324 MG CH (20:14)
[2023-08-19 20:15] LABS: Absolute Neutrophil Count 11.24 10^3/uL (1.2-6.7)
[2023-08-19] MEDS: Omnipaque 350 MG/ML 100 ML BTL IJ (20:15)
[2023-08-19] MEDS: Heparin 5,000 UNITS/ML VIAL 5680 UNITS IV (20:15)
[2023-08-19] MEDS: Omnipaque 350 MG/ML 50 ML BTL IJ (20:17)
[2023-08-19] MEDS: Normal Saline - Diluent 50 ML VIAL IJ ×2 (20:18→20:19)
[2023-08-19 20:25] LABS: PTT Activated 28.8 sec (23.6-32.8)
[2023-08-19 20:30] LABS: ALT 24 U/L (14-59); AST 21 U/L (15-37); Albumin 4.3 g/dL (3.4-5.0); Alkaline Phosphatase 137 U/L (46-116); Anion Gap 12.2 mmol/L (3-11); BUN 11 mg/dL (7-18); Bilirubin, Total 0.5 mg/dL (0.2-1.0); CO2 22.8 mmol/L (21.0-32.0); CREATININE 0.8 mg/dL (0.55-1.02); Chloride 100 mmol/L (98-107); Estimated GFR 81.72 (mL/min/1.73m2); Glucose 157 mg/dL (74-106); Sodium 135 mmol/L (136-145)
[2023-08-19 20:33] LABS: Troponin I 452 ng/L (< or =60)
[2023-08-19] MEDS: Heparin in 0.45% NaCl 25,000 UNIT/250 ML BAG 0.18 UNIT IV (20:36)
[2023-08-19] MEDS: fentaNYL 100 MCG/2 ML VIAL 75 MCG IVP (20:51)
--- NOTE | 2023-08-19 21:19 | DI.VRAD_ITS ---
Addendum created by Loyd Cerda MD on 08/19/2023 10:24:53 PM EST: THIS REPORT CONTAINS FINDINGS THAT MAY BE CRITICAL TO PATIENT CARE. The findings were verbally communicated via telephone conference with ELAINE BACA at 10:24 PM EST on 08/19/2023. The findings were acknowledged and understood. Initial report created on 08/19/2023 9:18:41 PM EST: PROCEDURE INFORMATION: Exam: CTA Abdominal Aorta and Bilateral Lower Extremities (Run-off) With Contrast Exam date and time: 08/19/2023 8:18 PM Age: 63 years old Clinical indication: Pain; Concern for lower leg ischemia TECHNIQUE: Imaging protocol: Computed tomographic angiography of the of the abdominal aorta, pelvis and bilateral lower extremities with contrast. 3D rendering (Not supervised by radiologist): MIP and/or 3D reconstructed images were created by the technologist. Radiation optimization: All CT scans at this facility use at least one of these dose optimization techniques: automated exposure control; mA and/or kV adjustment per patient size (includes targeted exams where dose is matched to clinical indication); or iterative reconstruction. 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 Celiac trunk and mesenteric arteries: No occlusion or significant stenosis. Renal arteries: No occlusion or significant stenosis. Right iliac arteries: Occlusion of the right common iliac and right external iliac arteries (occlusion of stents within the right common iliac and right external iliac arteries). Patent small-caliber right internal iliac artery. Right femoral/popliteal arteries: Occluded right common femoral artery. Occluded proximal / mid right superficial femoral artery. Reconstitution of a small-caliber distal right superficial femoral artery and right popliteal artery. Patent right profunda femoris artery. Right infrapopliteal arteries: Patent right anterior tibial artery. Patent right tibioperoneal trunk. Occluded right peroneal artery and right [employer] ASSOCIATE. Left iliac arteries: Occlusion of the left common iliac and left internal iliac arteries (occlusion of stents within the left common iliac and left external iliac arteries). Patent small-caliber left internal iliac artery. Left femoral/popliteal arteries: Occluded left common femoral artery. Occluded proximal left superficial femoral artery. Reconstitution of a small-caliber mid left superficial femoral artery. Segmental occlusions or internal thrombus within the junction of the mid / distal left SFA. Patent small-caliber distal left SFA and left popliteal artery. Patent left profunda femoris artery. Left infrapopliteal arteries: No patent left peroneal artery, left KINGSLEY, or left [employer]OCIATE are visualized. Lungs: Bibasilar linear parenchymal scarring or subsegmental collapse / atelectasis. Liver: Fatty infiltration of the liver. Gallbladder and bile ducts: Unremarkable. No calcified stones. No ductal dilation. Pancreas: Unremarkable. No mass. No ductal dilation. Spleen: Normal. No splenomegaly. Adrenal glands: Normal. No mass. Kidneys and ureters: Normal. No mass. Stomach and bowel: Unremarkable. No obstruction. No mucosal thickening. Appendix: No evidence of appendicitis. Urinary bladder: Unremarkable. No mass. Reproductive: Atrophic uterus and ovaries. Intraperitoneal space: No free air. No significant fluid collection. Lymph nodes: No lymphadenopathy. Bones/joints: Unremarkable for patient age. Soft tissues: Unremarkable. IMPRESSION: 1. 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 2. Occlusion of each common iliac and each external iliac artery (occlusion of stents within the each common iliac artery and each external iliac artery). Patent small-caliber internal iliac arteries bilaterally. 3. Occluded right common femoral artery. Occluded proximal / mid right superficial femoral artery. Reconstitution of a small-caliber distal right superficial femoral artery and right popliteal artery. Patent right profunda femoris artery. 4. Patent right anterior tibial artery. Patent right tibioperoneal trunk. Occluded right peroneal artery and right [employer] ASSOCIATE. 5. Occluded left common femoral artery. Occluded proximal left superficial femoral artery. Reconstitution of a small-caliber mid left superficial femoral artery. Segmental occlusions or internal thrombus within the junction of the mid / distal left SFA. Patent small-caliber distal left SFA and left popliteal artery. Patent left profunda femoris artery. 6. No patent left peroneal artery, left KINGSLEY, or left [employer] ASSOCIATE are visualized. Dictated and Authenticated by: Loyd Cerda MD. Ordering:GRADY Donis MD
[2023-08-19] MEDS: HYDROmorphone 2 MG/ML SYR 0.5 MG IVP (21:30)
== END 2023-08-19 21:32 | disposition short-term general hospital (02) ==
PROVIDERS: Emergency Provider Emergency Medicine; PCP Family Medicine
DX: M79.662 Pain in left lower leg (principal); I74.09 Other arterial embolism and thrombosis of abdominal aorta; I70.223 Atherosclerosis of native arteries of extremities with rest pain, bilateral legs; I73.9 Peripheral vascular disease, unspecified; J44.9 Chronic obstructive pulmonary disease, unspecified; Z86.73 Personal history of transient ischemic attack (TIA), and cerebral infarction without residual deficits; Z98.1 Arthrodesis status; Z79.02 Long term (current) use of antithrombotics/antiplatelets; F17.210 Nicotine dependence, cigarettes, uncomplicated
CPT/HCPCS: 36415; 75635; 80053; 93005; 93971; 96374; 96375; 96376; 99285; 83605; 84484; 85025; 85730; 93010; J1170; J1644; J3010; J3490; Q9967

== ENCOUNTER 2023-09-14 13:38 | Outpatient (REF) | payer MEDICARE, MEDICAID, SELFPAY | END 2023-09-14 13:39 | disposition home or self-care (01) | LOC: LBN 13:38 | PROVIDERS: PCP Family Medicine; Visit Provider Family Medicine | DX: L08.89 Other specified local infections of the skin and subcutaneous tissue (principal); T81.49XA Infection following a procedure, other surgical site, initial encounter; Z89.512 Acquired absence of left leg below knee | CPT/HCPCS: 87077; 87070; 87186; 87205 ==

== ENCOUNTER → 2023-11-29 13:28 | Outpatient (CLI) | payer MEDICARE, MEDICAID, SELFPAY ==
--- NOTE | 2023-11-29 12:45 | DI.RAD_ITS ---
Exam(s) XR CHEST 2V PA LATERAL EXAM: XR CHEST 2V PA LATERAL CLINICAL HISTORY: Unspecified complication of cardiac and vascular prosthetic device TECHNIQUE: 2D digital imaging was performed of the chest. Two images were obtained. PA and lateral views were obtained. COMPARISON: CR XR CHEST 2V PA LATERAL from 04/13/2023 FINDINGS: MEDIASTINUM: Normal. HEART: Normal. PULMONARY VASCULATURE: Normal. LUNGS: Clear. PLEURAL SPACE: No pleural effusion or pneumothorax. BONE:Within normal limits for the patient's age. OTHER FINDINGS:No radiopaque foreign bodies are identified. IMPRESSION: 1. No acute pulmonary findings. 2. No radiopaque foreign bodies are present. 3. Findings were discussed with Dr. Dye at 2:20 p.m. on 11/29/2023. DATA REPOSITORY: RADIATION DOSE DELIVERED:
== END ==
PROVIDERS: PCP Student in an Organized Health Care Education/Training Program; Visit Provider Surgery
DX: T82.9XXA Unspecified complication of cardiac and vascular prosthetic device, implant and graft, initial encounter (principal); Z95.5 Presence of coronary angioplasty implant and graft; Z98.890 Other specified postprocedural states
CPT/HCPCS: 71046

== ENCOUNTER → 2024-01-02 00:40 | Outpatient (CLI) | payer MEDICARE, MEDICAID, SELFPAY ==
--- NOTE | 2024-01-02 | DI.CT_ITS ---
Exam(s) CT THORAX ABD/PEL CTA EXAM: CT THORAX ABD/PEL CTA CLINICAL HISTORY: AORTIC OCCLUSION, I70.0; RT AXILLARY TO BIFEMORAL ARTERY BYPASS GRAFT. TECHNIQUE: Imaging Protocol: Axial computed tomography images with coronal and sagittal reformatted images were created and reviewed CONTRAST MATERIAL: Intravenous: Omnipaque 350 Contrast volume:100 ml Oral: None COMPARISON: CT CT ABD AORTA CTA W RUNOFF from 08/19/2023 FINDINGS: CHEST: VASCULAR: At the level of the aortic arch it is noted that the left common carotid artery is occluded at its origin. There is no contrast seen within the left common carotid artery in the field of view of this study. The brachiocephalic trunk is patent. The left subclavian artery is occluded just be yond its origin. Indeed, this implies that flow in the patent left vertebral artery is retrograde wi th subclavian steal-type dynamics. The brachiocephalic trunk is patent. Right common iliac artery is opacified in the field of view of this study. The right subclavian artery is patent. Right axillary artery is patent and there is a 1 cm diameter right axillary-fem graft extending down the subcutaneous sidewall with prominent surroun ding fluid density, this fluid not containing gas. The thickness of the thorough in Ding fluid is up to 1.5 cm thickness. There is no surrounding streaking in the subcutaneous fat. This graft is barillas nt and is connected to a patent appearing fem-fem graft which anastomosis is to the left common femor al artery. The abdominal aorta is again noted be occluded below the level of the renal arteries and the stented iliac arteries are also occluded. The ascending thoracic aorta diameter is 3.5 cm without evidence of dissection. Diameter of the desc ending thoracic aorta is upper normal. Celiac and superior mesenteric arteries are patent. Renal ar teries are patent in kidneys exhibit normal size. LUNGS: There are no pulmonary infiltrates nor pleural effusions. There are no ominous pulmonary nodu les. No significant findings in the trachea and mainstem bronchi. No bronchiectasis.. MEDIASTINUM: There is no hilar nor mediastinal adenopathy. CARDIAC: Heart size is normal. There is no pericardial effusion. ABDOMEN: There is no ascites. LIVER: There are no focal hepatic lesions nor dilatation of intrahepatic ducts. GALLBLADDER/BILIARY: No obvious gallbladder pathology. CBD is not dilated. PANCREAS: No evidence of pancreatic mass nor dilatation of the pancreatic duct. SPLEEN: Spleen is not enlarged. There are no intrasplenic lesions. Splenic and portal veins are barillas nt. ADRENALS: There are no significant adrenal masses. KIDNEYS: No cysts evident. No calculi nor hydronephrosis. No solid renal masses. ABDOMINAL AORTA: Occluded below the level of the renal arteries. See above LYMPH NODES: There is no retroperitoneal nor para-aortic adenopathy. No obvious mesenteric masses. ABDOMINAL WALL: No evidence of significant anterior abdominal wall hernia. GI: There are no ischemic appearing bowel loops. No evidence of bowel obstruction, free air, nor abs cess. There is no ascites. PELVIS: LYMPH NODES: There is no intrapelvic nor inguinal adenopathy. GI: No evidence of appendicitis.No evidence of sigmoid diverticulitis. URINARY BLADDER: No calculi nor masses evident REPRODUCTIVE: Uterus size normal. No abnormal adnexal masses nor free fluid in the pelvis. OSSEOUS: No significant osseous lesions. Schmorl's node invagination superior endplate of L1 noted. There is also a fusion plate in the cervi renetta spine noted. IMPRESSION: 1. When compared to the CT study of 08/19/2023 there has been interval placement of a right axillary- fem graft (1 cm diameter) which is patent and anastomosis to a patent fem-fem graft as well as the [facility] common femoral artery. There is circumferential fluid around the entire length of the graft, thi s fluid thickness measuring up to 1.5 cm diameter (not containing gas nor surrounding inflammatory st reaking in the subcutaneous fat). Correlation with time since placement of the graft is recommended. There is no intravenous contrast extravasation from the graft. 2. The abdominal aorta is occluded below the level of the renal arteries (which are patent). There a re no ischemic appearing bowel loops. No ascites. Kidneys exhibit normal size. 3. The left common carotid artery is occluded at its origin. Brachiocephalic trunk, right common car otid artery and right subclavian arteries are patent. 4. 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 The left subc lavian artery appears to be perfused by retrograde flow down the left vertebral artery. Correlation with any clinical signs of subclavian steal syndrome recommended. 5. Heart size is normal. There is no pericardial effusion. Diameter of the ascending thoracic aorta , aortic arch, and descending thoracic aorta are upper normal and there is no evidence of dissection. 6. There are no significant focal pulmonary findings nor pleural effusions. Also no acute findings in the abdomen and pelvis. RADIATION DOSE DELIVERED: 1,033.6mGy.cm Total DLP DATA REPOSITORY: All CT scans at this facility are submitted to the National Radiology Data Registry (NRDR) Dose Index Registry (DIR) with the [employer] ([employer]). RADIATION OPTIMIZATION: All CT scans at this facility use at least one of these dose optimization te chniques: automated exposure control; mA and/or kV adjustment per patient size (includes targeted exa ms where dose is matched to clinical indication); or iterative reconstruction.
[2024-01-02 13:43] LABS: HGB 13.4 g/dL (11.2-15.7)
[2024-01-02 13:56] LABS: Anion Gap 9.6 mmol/L (3-11); BUN 7 mg/dL (7-18); CO2 27.4 mmol/L (21.0-32.0); CREATININE 0.9 mg/dL (0.55-1.02); Chloride 104 mmol/L (98-107); Estimated GFR 70.95 (mL/min/1.73m2); Glucose 141 mg/dL (74-106); Potassium 3.7 mmol/L (3.5-5.1); Sodium 141 mmol/L (136-145)
[2024-01-02] MEDS: Normal Saline - Diluent 50 ML VIAL IJ (14:30)
[2024-01-02 14:31] LABS: Magnesium 2.2 mg/dL (1.8-2.4); Vitamin B12 133 pg/mL (193-986); Vitamin D 25 Total 8.1 ng/mL (30-100)
[2024-01-02] MEDS: Omnipaque 350 MG/ML 100 ML BTL IJ (14:31)
== END ==
PROVIDERS: Surgery; PCP Student in an Organized Health Care Education/Training Program; Visit Provider Surgery Vascular Surgery
DX: I70.0 Atherosclerosis of aorta (principal); G52.8 Disorders of other specified cranial nerves; K21.9 Gastro-esophageal reflux disease without esophagitis
CPT/HCPCS: 71275; 80048; 82306; 74174; 82607; 82746; 83735; 85018; J3490

== ENCOUNTER 2024-03-13 17:44 | Outpatient (REF) | payer SELFPAY ==
[2024-03-13 18:17] LABS: Abs Immature Grans 0.02 10^3/uL (0.0-0.06); Absolute Basophil Count 0.01 10^3/uL (0.0-0.2); Absolute Eosinophil Count 0.42 10^3/uL (0.0-0.7); Absolute Lymphocyte Count 0.71 10^3/uL (1.2-3.4); Absolute Monocyte Count 0.83 10^3/uL (0.1-0.8); Absolute Neutrophil Count 3.63 10^3/uL (1.2-6.7); Basophils % 0.2 %; Eosinophils % 7.5 %; HCT 29.8 % (36.0-46.0); HGB 9.3 g/dL (11.2-15.7); Immature Grans % 0.4 %; Lymphocytes % 12.6 %; MCH 29.6 pg (27.0-33.0); MCHC 31.2 % (32.0-36.0); MCV 95 fL (80-95); MPV 9.8 fL (8.0-11.0); Monocytes % 14.8 %; Neutrophils % 64.5 %; Platelet Count 316 10^3/uL (130-400); RBC 3.14 10^6/uL (3.93-5.22); RDW 15.5 % (11.7-14.6); RDW-SD 54.3 fL; WBC 5.62 10^3/uL (4.4-10.8)
== END 2024-03-13 17:45 | disposition home or self-care (01) ==
LOC: LBN 17:44
PROVIDERS: PCP Student in an Organized Health Care Education/Training Program; Visit Provider Family Medicine
DX: I95.9 Hypotension, unspecified (principal)
CPT/HCPCS: 85025

== ENCOUNTER 2024-05-02 12:08 | Inpatient (IN) | payer OTHER, SELFPAY ==
[2024-05-02 14:26] VITALS: BP 124/65; PULSE 120; RESP 18; TEMP 36.8; O2SAT 99
--- NOTE | 2024-05-02 15:28 | W.PM.HP.N ---
Date of service: 05/02/24 Time of Service: 14:00 Assessment and Plan Assessment and plan (1) Amputation of left lower extremity above knee with complication: Status: Acute Assessment and plan: left leg stump wound with gangrene, worse over last week, Negin refusing wound care (2) Hospice care patient: Status: Acute Assessment and plan: Here for hospice symptom management admission. Patient with uncontrolled pain, caregiver and family members cannot help her manage appropriately. Plan is to get her pain controlled and then return her to community assisted WITH negotiated risk in place and more supervision. Additionally, if we need to revert to oral and transdermal medications again, nurses will deliver medications one or 2 days supply to prevent misuse/overuse. (3) Hallucinations: Status: Acute Assessment and plan: Likely due to combination of infection and medications. (4) Gangrene: Status: Acute Assessment and plan: Diagn[place] [facility] Part of her hospice diagnosis. (5) Wound cellulitis after surgery: Status: Acute Assessment and plan: See [facility] [place]. We have ordered flagyl to the wound base IF wound becomes malodorous. (6) PAD (peripheral artery disease): Status: Acute Assessment and plan: End-stage severe no futher interventions available per vascular surgery (7) Chronic pain: Status: Chronic Assessment and plan: She appeared more comfortable once settled into [facility] bed. Will see if she maintains this or not. Will work on pain management for next 48-72 hrs. (8) Wound infection: Status: Acute (9) Smoker: Status: Acute Assessment and plan: Has nicotine patch. (10) Living accommodation issues: Status: Acute Assessment and plan: Needs much closer observation from her caregiver than she had prior to this admission. IF she is to return to her prior living situation with Camilla Murray. She also needs to allow other people to manage her pain medications as she has proven she is unable to do so. Lockbox is in home. History of Present Illness History of Present Illness Chief Complaint: hospice pt, end-stage PVD, wound L leg stump, pain Narrative: Viktoriya Nath is a 64 yo woman who came on hospice last week from [facility] with a diagnosis of end-stage PVD. She is status post left leg amputation. She has had multiple surgeries on this leg, each one amputating a bit more of the leg. There is no further surgery available for her. She has had multiple vascular surgeries, including BCEA, multiple leg stents, etc. See her extensive problem list. She is suffering from gangrene in the stump wound and is at high risk for terminal sepsis. Since her discharge from [facility], she has been staying with her old friend Camilla Murray, who has previously cared for other hospice patients in her home. This has not gone smoothly, however. Viktoriya's daughter Laine is also staying in the home. Viktoriya received two prescriptions for oral hydromorphone this week. She has not been taking them as directed. For example, one day, she should have had 10 tabs left over but instead had only 4. She did not allow Camilla to be in charge of her medications. She was not allowing hospice nurses to care for her wound. She c/o intense pain, too intense to allow wound cleansing. Given this intense pain and incorrect use of oral hydromorphone, we started her on a hospice CADD pump as of Sunday evening, 04/29. She was started on hydromorphone 10 mg/ml with a 1.5 mg continuous drip with a 1.5 mg bolus q 15 minutes. It is unclear what has occurred in the last 3 days. Hospice nurses have been called to the home at least 3 times to attend to the pump. Viktoriya reportedly pulled it off. Negin tells me she thinks she cut the tubing with scissors. She says she cut the pump tubing because she needed to urinate. Her daughter, Laine, admitted she went into the nurses kit and opened a new cassette (which was empty, though this was not clear from looking at it). Laine didn't call the nurse to say that she needed help. She says that she found new tubing and put a new tube on her mother. This is all reported, not verified. After consultation with nurses, CAREER RESOURCE TECHNICIAN, Quality, and other administrators, decision was made to bring her in to the hospital for patient safety. No one had ever had as much trouble with a pump in such a short time. The fact that significant amounts of oral opioid medications are unaccounted for; the pump has not been functioning as directed; concerns exists for possible diversion, and lack of oversight of the patient was ongoing, we decided that admission to [facility] was essential for patient safety. Negin is being admitted for hospice symptom management. If we can change the situation at her community assisted, ensuring that it is as safe as possible and issuing a negotiated risk contract, we may be able to discharge her back to Camilla Murray's house. This is currently Negin's preference. Review of Systems Constitutional Constitutional: Reports body ache(s), Reports fatigue, Reports lethargy, Reports poor appetite, Reports weakness and Reports weight loss Eyes Eyes: Reports requires corrective lenses ENT Ears, Nose, Mouth, and Throat: Reports disequilibrium Cardiovascular Cardiovascular: Reports claudication, Reports palpitations and Reports dyspnea on exertion Respiratory Respiratory: Reports cough and Reports dyspnea on exertion Comments: continues to smoke, has smoker's cough Gastrointestinal Gastrointestinal: Reports constipation Genitourinary Genitourinary: Reports urinary incontinence and Reports urinary urgency Musculoskeletal Musculoskeletal: Reports abnormal gait, Reports atrophy and Reports stiffness Neurologic Neurologic: Reports abnormal gait, Reports behavioral changes (has been seeing people/things; visual hallucinations intermittently,), Reports confusion, Reports disequilibrium and Reports weakness Psychiatric Psychiatric: Reports behavioral changes (has been seeing people/things; visual hallucinations intermittently,) and Reports confusion Endocrine Endocrine: Reports fatigue and Reports palpitations PFSH All Active Problems (Updated 05/02/24 @ 16:06 by Dinah Martinez MD) Living accommodation issues (Acute) Smoker (Acute) Wound cellulitis after surgery (Acute) Gangrene (Acute) Hallucinations (Acute) Hospice care patient (Acute) Amputation of left lower extremity above knee with complication (Acute) Atherosclerosis of [place] arteries of extremities with intermittent claudication, bilateral legs (Acute) 03/07/24 [facility] Vascular note Vitamin D deficiency (Acute) Folate deficiency (Acute) Lumbosacral spondylosis without myelopathy (Acute) Cyst of skin and subcutaneous tissue (Acute) S/P aortobifemoral bypass surgery (Acute) - Axillary bifemoral bypass 07/2023 with synthetic grafting at [facility] PAD (peripheral artery disease) (Acute) Subcutaneous air (Acute) Chronic pain (Chronic) Prosthetic and other implants, materials and accessory general hospital and personal-use devices associated with adverse incidents (Acute) Left BKA Prosthetic needed .. [facility] Vasc/Ortho note stated referral placed ?! [ ] Leg pain, left (Acute) Peripheral neurogenic pain (Acute) Neuroma of amputation stump of extremity (Acute) History of embolectomy (Acute) History of fasciotomy (Acute) S/P unilateral BKA (below knee amputation) (Acute) Left, [facility], 08/2023 (failed emergency re-vasc s/p [facility] ED xfer) History of recent hospitalization (Acute) Wound infection (Acute) Osteoporosis with pathological fracture (Acute) Insufficiency fracture of pelvis (Acute) rt parasymph; b/l sacral 2' fall+presumed osteoporosis Peripheral polyneuropathy (Acute 10/19/15) Peripheral vascular disease (Acute 11/12/13) Decreased circulation (Acute) Intermittent claudication (Acute 11/12/13) Lft BKA, Winter 2023..(L) Iliofemoral endarterectomy 05/11/14 (L) Common Iliac artery Stent placement 05/11/14 (L) external Iliac stent graft 05/11/14 Spinal accessory neuropathy (Acute) Disturbed sensory perception (Acute) At risk of pressure ulcer (Acute) Decreased mobility of joint of right side of pelvis (Acute) Decreased mobility in bed (Acute) Age-related osteoporosis with current pathological fracture of pelvis (Acute) presumed osteoporosis; insuff Fx defining path Fx Homelessness (Acute) [employer]chers, but no plan and limited transportation Acute right hip pain (Acute) New, different rt hip/iliac(?) pain .. severe .. unable to bear weight ((Rt hip pain, prox to hip joint, iliac crest)) Ambulatory dysfunction (Acute) Sacro-iliac pain (Acute) chronic? (XR in Aug 2022 per ov w/ TM 2' DDx SI Pain) <-- was this the beg of insufficiency Fx? (Hx old L1 compression fracture, unchanged since 2019) Cervical myelopathy (Acute) Cervical spinal cord compression (Acute) Back pain (Acute) Elevated blood pressure reading without diagnosis of hypertension (Acute) Word finding difficulty (Chronic) GERD (gastroesophageal reflux disease) (Chronic) Left carotid artery occlusion (Acute 06/01/20) [facility] Vasc Surg Constipation (Chronic) Fatigue (Acute) Hip pain, bilateral (Acute) Knee pain, bilateral (Acute) Nocturnal leg cramps (Chronic) B12 deficiency (Acute 10/31/16) Carotid artery stenosis (Acute 12/09/13) 12-09-13: (L) ICA w/ high grade velocity; CEA 12/2013 Chronic obstructive lung disease (Acute 04/23/14) Hx smkg, but quit, 2022 Family history of cardiovascular disease (Acute 11/12/13) father [place] 55 yo Pain in both feet (Acute 10/31/16) Pure hypercholesterolemia (Acute 11/12/13) Subclavian artery stenosis, left (Acute 04/20/17) unsuccessful stenting attempt. 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 RTC in 6 months with carotoid duplex Maradiaga's neuroma of left foot Lesion of Plantar nerve, Left lower limb Maradiaga's neuroma of right foot Lesion of plantar nerve,right lower limb COPD (chronic obstructive pulmonary disease) Surgical History S/P vascular bypass (~2023) 02/04/24 Explant of right axillary to right femoral PTFE bypass 02/21/24 Left brachial artery exposure, left upper extremity angiogram, attempted crossing of left subclavian occlusion History of below-knee amputation of left lower extremity (08/20/23) [facility] S/P cervical spinal fusion (09/27/22) C3-C5 ACDF for myelopathy aortogram (02/04/15) [facility] [place] Yun Archer Right SFA Endarterectomy (02/04/15) [facility] [place]. Yun Archer Right Iliofemoral Endartecectomy (02/04/15) [facility] [place] Yun Archer Right NIKI Stent Graft (02/04/15) [facility] [place] Yun Archer , Ectopic (~1988) Family History Mother Pancreatitis Father Hyperlipidemia Myocardial infarction Heart disease Brother Substance abuse ETOH Grandfather Myocardial infarction Grandmother Myocardial infarction Colon cancer high risk Aunt Osteosarcoma Uterine cancer Social History Smoking/Tobacco Use Status: Current every day Tobacco Type: cigarettes and e-cigarettes Tobacco: How many years used: 45 Quit status: considering quitting Smoking risk assessment performed?: Yes Alcohol Intake: never Drug use: Never Substance use type: does not use Housing: house Number of Children: 2 Communication Needs: Corrective Lenses Education Level: college 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 Current gender identity: female What is your relationship status?: Panel score (0-1 are the most socially isolated patients): 0 What type of physical activity do you participate in: none Seatbelt use: always Drive intox or ride w/intox residential recycle driver: No Working smoke detector in home: Yes Carbon monox detector in home: Yes Do you feel safe at home: Yes Do you feel safe in your relationship?: Yes Additional Social history: homeless Meds Allergies and Home Medications Allergies Allergy/AdvReac Type Severity Reaction Status Date / Time insect venom Allergy Severe requires Verified 12/20/23 10:27 epi-pen (black flies) erythromycin base AdvReac Unknown upset Verified 12/20/23 10:27 stomach DO NOT TAKE BP LEFT ARM AdvReac Other (See Uncoded 12/20/23 10:27 Comment) Home Medications ?Medication ?Instructions ?Recorded ?Confirmed ?Type SI joint support belt #1 ea 06/25/23 02/08/24 Rx air mattress #1 ea 06/25/23 02/08/24 Rx hospital bed #1 ea 06/25/23 02/08/24 Rx tiotropium bromide 18 mcg capsule 18 mcg inhalation DAILY #90 07/31/23 02/08/24 Rx with inhalation device (Spiriva tab-caps with HandiHaler) manual wheel chair #1 ea 09/14/23 02/08/24 Rx miscellaneous medical supply #1 ea 09/20/23 02/08/24 Rx epinephrine 0.3 mg/0.3 mL 0.3 mg (0.3 mL) IM ONCE PRN 11/19/23 05/02/24 Rx injection, auto-injector (EpiPen anaphylaxis #1 ea 2-Luigi) famotidine 20 mg tablet (Heartburn 20 mg PO BID GERD #180 tabs 11/19/23 05/02/24 Rx Relief (famotidine)) prosthetic - left BKA #1 ea 11/26/23 02/08/24 Rx Space Saver WALKER 12/07/23 02/08/24 History sennosides 8.6 mg-docusate sodium 2 tab-cap PO BID 01/28/24 02/08/24 History 50 mg tablet (Senna with Docusate Sodium) albuterol sulfate 90 mcg/actuation See Rx Instructions .Route 03/17/24 05/02/24 Rx aerosol inhaler (Ventolin HFA) .COMPLEX #54 grams lorazepam 1 mg tablet 1 mg PO Q4H PRN anxiety #7 tabs 04/18/24 Rx morphine concentrate 100 mg/5 mL See Rx Instructions PO Q1H PRN #30 04/18/24 Rx (20 mg/mL) oral solution mL acetaminophen 500 mg tablet 1,000 mg PO Q6H PRN 04/24/24 05/02/24 History fluticasone propionate 230 2 puff inhalation BID 04/24/24 History mcg-salmeterol 21 mcg/actuation HFA inhaler (Advair HFA) gabapentin 400 mg capsule 800 mg PO TID 04/24/24 History lidocaine 5 % topical patch 3 patch topical DAILY 04/24/24 History magnesium hydroxide 400 mg/5 mL 30 ml PO DAILY PRN 04/24/24 History oral suspension melatonin 3 mg tablet 3 mg PO HS PRN 04/24/24 History methocarbamol 1,000 mg tablet 1,000 mg PO TID 04/24/24 History nicotine 1 patch transdermal DAILY 04/24/24 History 21mg/24hr-14mg/24hr-7mg/24hr daily transderm patches,sequentl nortriptyline 50 mg capsule 50 mg PO QHS 04/24/24 History nystatin 100,000 unit/gram topical 1 applic topical BID 04/24/24 History powder polyethylene glycol 3350 17 gram 17 g PO DAILY PRN 04/24/24 History oral powder packet (Miralax) sodium phosphates 19 gram-7 118 ml SD ONCE 04/24/24 History gram/118 mL enema (Fleet Enema) hydromorphone 4 mg tablet 4 mg PO Q6H PRN pain #20 tabs 04/28/24 Rx hydromorphone (PF) 10 mg/mL See Rx Instructions continuous 04/29/24 Rx injection solution subcutaneous infusion Q1H pain #100 mL fentanyl 100 mcg/hr transdermal 1 patch transdermal Q72H #2 ea 05/02/24 Rx patch hydromorphone 8 mg tablet 8 mg PO Q6H PRN pain #8 tabs 05/02/24 Rx risperidone 1 mg/mL oral solution 1 mg PO BID #30 mL 05/02/24 Rx Exam Narrative Exam Narrative: Appears older than stated age Lying in bed with HOB elevated Eyes anicteric HEENT mm are dry, hearing intact neck well healed bilateral CEA scars, no lad Lungs distant CV murmur throughout all lung field, tachycardic abd slender no masses noted, + bs wnl, CADD pump inserted SC in abdomen no camejo in place neuro vague, able to answer generalized questions, + visual hallucinations psych can be irritable, uncooperative, unpleasant, not so during my exam skin pale, did not take down bandage to examine wound , bandages in place do not cover entire wound bed WOUND CONSULT HAS BEEN PLACED ext missing left leg, right leg with well healed scars but still with reduced DP and PT pulses Time Spent Time spent with Patient: >75 minutes Time was spent: obtaining and/or reviewing separately otained hiistory, ordering medications,tests, procedures, referring, communicating with other health out of school hours care worker, counseling the patient and care coordination
[2024-05-02 15:43] VITALS: PULSE 120
--- NOTE | 2024-05-02 16:55 | NUR.NOTE ---
Nursing Note: Difficulty getting CADD pump started, so time started in the computer is prior to the actual start, approx 1/2 hour.
--- NOTE | 2024-05-02 17:06 | NUR.NOTE ---
Nursing Note: Pharmacy picked up CADD pump from caregiver home that pt came to hospital with to lock up until Dr. Martinez can pick it up tomorrow.
--- NOTE | 2024-05-02 17:07 | CHAPLAIN ---
Viktoriya was a direct admit from hospice today for symptom management. I visited with her, brought her prayer shawl, explained my role and offered support. She'll be here for a few days so I can visit again on Sunday and before that if called in. There are some complicating factors with her family and Dr. Martinez filled in staff about that.
[2024-05-02] MEDS: Nicotine 21 MG/24 HR PATCH TD (17:21)
--- NOTE | 2024-05-02 17:33 | NUR.NOTE ---
Patient is confused and agitated upon admission to unit. Provided reorientation and distraction. Elevated foot and provided flat pillow for support and to decrease edema in rt foot. Patient is slightly resistant to care and flailing arms around in bed at times, [ossibly hallucinating after starting CADD pump for pain mgmt. Will monitor.
--- NOTE | 2024-05-02 18:12 | NUR.NOTE ---
Attempted to walk patient for a loop in wheel chair around unit. Patient refused and wanted to be taken outside. When prompted to remain in chair and stay on med/surg.unit patient became agitated and combative with staff, stating, This is fucking bullshit, give me my phone so I can call the police, you can't just kidnap me. Transferred patient back to bed and increased basal rate of CADD /dilaudid pump. Currently providing continuous monitoring for patient safety at this time. Will recommend one-to-one sitter to nurse diabetes clinical manager.
--- NOTE | 2024-05-02 18:24 | NUR.NOTE ---
Advocated for a PSO for patient safety.
--- NOTE | 2024-05-02 18:35 | NUR.NOTE ---
Nursing Note: 18:08 hydromorphone bolus given was witnessed by Radha Correia RN and Angel Mcclellan LPN. Unable to chart the bolus given, pharmacy notified.
[2024-05-02 19:24] VITALS: BP 99/63; PULSE 105; RESP 14; TEMP 37; O2SAT 95
[2024-05-02] MEDS: LORazepam 1 MG TAB PO (22:41)
[2024-05-03] MEDS: LORazepam 1 MG TAB PO (02:14)
[2024-05-03 05:29] VITALS: RESP 32
[2024-05-03 07:30] VITALS: O2SAT 89
[2024-05-03 07:45] VITALS: O2SAT 96
[2024-05-03 08:00] VITALS: BP 106/62; PULSE 108; RESP 18; TEMP 37.2; O2SAT 89
[2024-05-03 08:55] VITALS: O2SAT 94
--- NOTE | 2024-05-03 09:25 | PDOC.CMIN ---
Date of service: 05/03/24 Time of Service: 09:25 Care Management Initial Assmt Initial Assessment Reason for Hospitalization: hospice symptom management - PVD s/p amp Functional Status/Living Situation Patient Presentation: Viktoriya is on hospice and was admitted on 05/02/24 for symptom management. She has had multiple surgeries on her LLE including AKA which is now infected and gangrenous. Pain control has been problematic so she was admitted to [facility] to address the issue. Viktoriya is currently receiving morphine via pump at 8.5 mg/hr which is an increase of 2mg/hr since the start of the day shift. When CM went to see Viktoriya she was asleep and not responding to verbal stimuli. She also had a bolus dose of 2mg given around 1:30pm. Dr. Martinez came to see Viktoriya today. She informed CM that she expects Viktoriya to remain at [facility] for end of life care as she anticipates that she only has a few days until she passes. When CM saw Viktoriya she did appear comfortable. Her son was in to visit this morning and plans to return later in the day. The head scorer is also scheduled to visit later in the day. Town of Residence: [facility] Resides with: Other (caregiver/friend - Camilla Murray) Caregiver/Guardian: Azalea Murray Employment Status: Unemployed Instrumental Activities of Daily Living (ADLs): Requires support Medications Medication Management: No Issues/Barriers identified and Issues/Barriers with Instructions/Directions (not following directions for oral opioid administration) Advance Directives Advance Directives: Do you have an Advance Directive: N 12/05/23 10:27 AD On File at [facility]: N 12/05/23 10:27 Date Asked 05/02/24 05/02/24 13:47 AD Date Reviewed COLST On File at [facility] COLST Date Scanned Code Status Resuscitation Status DNR/DNI Insurance Coverage/Financial Issues Insurance: [facility] Care Team Visit Care Team Role Provider Type Shayna Johnston DO Primary Care Provider OSTEOPATHIC DOCTOR Dinah Martinez MD Admit Provider [facility] STAFF PHYSICIAN Attending Provider Discharge Potential Discharge Needs: PCP F/U Appt Anticipated Barriers to Discharge: SDOH Patient/Family Education Needs: Review discharge instructions, discuss Ask Me Three Transportation: EMS Plan: Negin was admitted from the community [facility] of her friend Azalea Murray who is now her caregiver. While there issues arose around her pain medication schedule and administration and her pain was uncontrolled. She was admitted for symptom management but also to improve the safety surrounding her medications. It is likely she will remain at [facility] for end of life care. CM will follow and continue to support Viktoriya and her family. [facility] All Active Problems (Updated 05/02/24 @ 16:06 by Dinah Martinez MD) Living accommodation issues (Acute) Smoker (Acute) Wound cellulitis after surgery (Acute) Gangrene (Acute) Hallucinations (Acute) Hospice care patient (Acute) Amputation of left lower extremity above knee with complication (Acute) Atherosclerosis of [place] arteries of extremities with intermittent claudication, bilateral legs (Acute) 03/07/24 [facility] Vascular note Vitamin D deficiency (Acute) Folate deficiency (Acute) Lumbosacral spondylosis without myelopathy (Acute) Cyst of skin and subcutaneous tissue (Acute) S/P aortobifemoral bypass surgery (Acute) - Axillary bifemoral bypass 07/2023 with synthetic grafting at [facility] PAD (peripheral artery disease) (Acute) Subcutaneous air (Acute) Chronic pain (Chronic) Prosthetic and other implants, materials and accessory general reading hospital and personal-use devices associated with adverse incidents (Acute) Left BKA Prosthetic needed .. [facility] Vasc/Ortho note stated referral placed ?! [ ] Leg pain, left (Acute) Peripheral neurogenic pain (Acute) Neuroma of amputation stump of extremity (Acute) History of embolectomy (Acute) History of fasciotomy (Acute) S/P unilateral BKA (below knee amputation) (Acute) Left, [facility], 08/2023 (failed emergency re-vasc s/p [facility] ED xfer) History of recent hospitalization (Acute) Wound infection (Acute) Osteoporosis with pathological fracture (Acute) Insufficiency fracture of pelvis (Acute) rt parasymph; b/l sacral 2' fall+presumed osteoporosis Peripheral polyneuropathy (Acute 10/19/15) Peripheral vascular disease (Acute 11/12/13) Decreased circulation (Acute) Intermittent claudication (Acute 11/12/13) Lft BKA, Winter 2023..(L) Iliofemoral endarterectomy 05/11/14 (L) Common Iliac artery Stent placement 05/11/14 (L) external Iliac stent graft 05/11/14 Spinal accessory neuropathy (Acute) Disturbed sensory perception (Acute) At risk of pressure ulcer (Acute) Decreased mobility of joint of right side of pelvis (Acute) Decreased mobility in bed (Acute) Age-related osteoporosis with current pathological fracture of pelvis (Acute) presumed osteoporosis; insuff Fx defining path Fx Homelessness (Acute) Vouchers, but no plan and limited transportation Acute right hip pain (Acute) New, different rt hip/iliac(?) pain .. severe .. unable to bear weight ((Rt hip pain, prox to hip joint, iliac crest)) Ambulatory dysfunction (Acute) Sacro-iliac pain (Acute) chronic? (XR in Aug 2022 per ov w/ TM 2' DDx SI Pain) <-- was this the beg of insufficiency Fx? (Hx old L1 compression fracture, unchanged since 2019) Cervical myelopathy (Acute) Cervical spinal cord compression (Acute) Back pain (Acute) Elevated blood pressure reading without diagnosis of hypertension (Acute) Word finding difficulty (Chronic) GERD (gastroesophageal reflux disease) (Chronic) Left carotid artery occlusion (Acute 06/01/20) [facility] Vasc Surg Constipation (Chronic) Fatigue (Acute) Hip pain, bilateral (Acute) Knee pain, bilateral (Acute) Nocturnal leg cramps (Chronic) B12 deficiency (Acute 10/31/16) Carotid artery stenosis (Acute 12/09/13) 12-09-13: (L) ICA w/ high grade velocity; CEA 12/2013 Chronic obstructive lung disease (Acute 11/12/13) Hx smkg, but quit, 2022 Family history of cardiovascular disease (Acute 11/12/13) father [place] 55 yo Pain in both feet (Acute 10/31/16) Pure hypercholesterolemia (Acute 11/12/13) Subclavian artery stenosis, left (Acute 04/20/17) unsuccessful stenting attempt. 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 RTC in 6 months with carotoid duplex Maradiaga's neuroma of left foot Lesion of Plantar nerve, Left lower limb Maradiaga's neuroma of right foot Lesion of plantar nerve,right lower limb COPD (chronic obstructive pulmonary disease) Surgical History S/P vascular bypass (~2023) 02/04/24 Explant of right axillary to right femoral PTFE bypass 02/21/24 Left brachial artery exposure, left upper extremity angiogram, attempted crossing of left subclavian occlusion History of below-knee amputation of left lower extremity (08/20/23) [facility] S/P cervical spinal fusion (09/27/22) C3-C5 ACDF for myelopathy aortogram (02/04/15) [facility] Dr Yun Archer Right SFA Endarterectomy (02/04/15) [facility] Dr. Yun Archer Right Iliofemoral Endartecectomy (02/04/15) [facility] Dr Yun Archer Right NIKI Stent Graft (02/04/15) [facility] Dr Yun Archer , Ectopic (~1988) Family History Mother Pancreatitis Father Hyperlipidemia Myocardial infarction Heart disease Brother Substance abuse ETOH Grandfather Myocardial infarction Grandmother Myocardial infarction Colon cancer high risk Aunt Osteosarcoma Uterine cancer Social History Smoking/Tobacco Use Status: Current every day Tobacco Type: cigarettes and e-cigarettes Tobacco: How many years used: 45 Quit status: considering quitting Smoking risk assessment performed?: Yes Alcohol Intake: never Drug use: Never Substance use type: does not use Housing: other Number of Children: 2 Communication Needs: Corrective Lenses Education Level: college 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 Current gender identity: female What is your relationship status?: Panel score (0-1 are the most socially isolated patients): 0 What type of physical activity do you participate in: none Seatbelt use: always Drive intox or ride w/intox mechanic welder truck driver: No Working smoke detector in home: Yes Carbon monox detector in home: Yes Do you feel safe at home: Yes Do you feel safe in your relationship?: Yes Additional Social history: homeless SDOH(Care Management) Screening Will the Patient Participate in the Screening?: Yes Do you worry about having a steady place to live?: no Problems where you live: no known problems In the past 12 months, have you had to go without electric, gas, oil or water in your home?: no Have you or anyone in your house had to go without enough food to eat?: no Has lack of transportation kept you from medical appointments or from doing things needed for daily living?: no Has anyone in your support network made you feel unsafe for any reason?: no
--- NOTE | 2024-05-03 18:58 | PGE_ITS ---
Date of Service Date of service: 05/03/24 Time of Service: 11:00 Assessment and Plan Assessment and plan (1) Gangrene: Status: Acute Assessment and plan: Viktoriya's pain is now sufficiently controlled to allow wound care. Wound consult still pending. Isidro ordered prn if wound starts to smell. (2) Hospice care patient: Status: Acute Assessment and plan: Remains on symptom management. I called in to Med Surg floor about 7 pm and learned that Negin is able to speak to family and eat a meal. She did require further increase in her basal dose to 8.5 mg/hr. She has required 1 bolus since 11 am. She is doing much better since nursing staff has been adjusting and operating her pain pump. She has not pulled it out, she has not tried to cut the tubing. She has not required any anti-psychotics for hallucinations. (3) Amputation of left lower extremity above knee with complication: Status: Acute Assessment and plan: During her most recent [place] [facility] from which she was discharged home on hospice, she opted for no further IV antibiotics. Surgical team had no further surgical interventions to offer her. She is not healing well from her amputation. She is expected to from sepsis related to her non-healing amputation wound. (4) PAD (peripheral artery disease): Status: Acute Assessment and plan: Severe, end-stage. (5) Uncontrolled pain: Status: Acute Assessment and plan: Better. Approaching goal of pain control with ability to interact when awake. Unsure if her living situation will be able to accommodate her need for CADD pump. Hoping to have her on same basal dose for at least 24 hrs before discharge home. It is possible that she will end up dying in the hospital. She did not seem u pset about being inpatient. (6) Living accommodation issues: Status: Acute Assessment and plan: See H and P. Multiple issues of medication management not being done adequately. Was unsafe at home. Negin has burned bridges at local SNFs and will not be accepted back. I did speak to Linda Byrd RN at [facility] about this directly. (7) Wound infection: Status: Acute Assessment and plan: Pending wound consult. (8) Peripheral vascular disease: Status: Acute Assessment and plan: End stage. (9) Pressure ulcer: Status: Acute Assessment and plan: Nurses trying to offload pressure on her wounds. She likes to lie on her back only. Subjective Subjective Patient reports: still having pain and pain is less (overnight,her basal dose increased from 2 mg/hr to 6.5 mg hr hydromorphone SC) Interval history since last seen: Viktoriya admitted on hospice symptom management for pain control and unsafe caregiving situation. See admit H and P. She appeared and said she was comfortable at 11 am after basal dose hydromorphone increased from 2 mg to 6.5 mg/hr overnight based on titration protocol. She slept through most of my visit. She was sleeping with her mouth open. She did awake when I touched her. Her son Indio was at bedside. He said he gets very uncomfortable around illness and . He was wondering if his 8 yo daughter, Marichuy, should visit her grandmother in the hospital. We called Azalea Acosta, the quarry supervisor dimension stone, to come in this afternoon to help Indio decide what would be best. Now that the [facility] nurses are managing the pain pump, daughter Laine is welcome back to her mother's bedside. I left a message on her saying this. As Negin appears more comfortable, it is possible that she is now transitioning to dying. She will declare herself within the next 24-48 hrs. Nursing staff asked that I change her risperidone to 1 mg tid prn, rather than scheduled. This was done. Nursing staff also reported that she has a stage 2 coccygeal pressure ulcer and a non-stageable R glueal ulcer. Wound consult is pending. Nurses did put clean bandage on. Bandage is clean and dry. Exam Narrative Exam Narrative: Appears older than stated age. Sleeping with head back and mouth open during most of the visit. VS HR 120s, RR 14 Lying in bed with HOB elevated Eyes closed most of visit. HEENT mm are dry neck well healed bilateral CEA scars, no lad Lungs distant, some crackles at bases, no apnea, no increased wob CV murmur throughout all lung field, tachycardic abd slender no masses noted, + bs wnl, CADD pump inserted SC in abdomen no camejo in place neuro awakens to touch and voice, answers in 2-4 word sentences, aware that son Indio is at bedside psych per nurses, she has been cooperative and pleasant during this admission skin pale, did not take down bandage to examine wound, pressure ulcers as noted ext missing left leg, high AK amputation, almost to pelvis Objective Last Vital Signs Temp 99.0 F 05/03/24 08:00 Pulse 108 H 05/03/24 08:00 Resp 18 05/03/24 08:00 BP 106/62 05/03/24 08:00 Pulse Ox 94 05/03/24 08:55 Time Spent with Patient Time Spent with Patient: 25-34 minutes Time was spent: ordering medications,tests, procedures, referring, communicating with other health medicare sales representative, counseling the patient and care coordination
[2024-05-04] MEDS: LORazepam 1 MG TAB PO ×3 (00:05→23:16)
[2024-05-04] MEDS: Nicotine 21 MG/24 HR PATCH TD (07:45)
[2024-05-04 08:04] VITALS: BP 106/59; PULSE 109; RESP 23; TEMP 37; O2SAT 90
--- NOTE | 2024-05-04 09:37 | W.PM.PROGNOT ---
Date of Service Date of service: 05/04/24 Time of Service: 09:37 Assessment and Plan Assessment and plan (1) Uncontrolled pain: Status: Acute Assessment and plan: Negin has required frequent increases in her basal dose of hydromorphone. She is now up to 18.5 mg/hr. Boluses are still being given 1-2 x per shift. GIven her need for rapid titration up in dose, she needs to be inpatient for symptom management. Her CADD pump was not working at home for a variety of reasons. See previous notes. (2) Gangrene: Status: Acute Assessment and plan: Primary terminal diagnosis, with infection and inability to heal. She was predicted to within days to weeks of admission by her vascular team. If she settles out and is on stable hydromorphone dose for at least 24 hrs, may possibly be able to send her home. (3) Wound cellulitis after surgery: Status: Acute (4) Hospice care patient: Status: Acute Assessment and plan: Here on symptom management. Requires frequent intensive assessment of pain and readjustment of hydromorphone basal doses. Continue GIP care. Will be seen tomorrow by hospice colleague Camilla Brown NP (5) Amputation of left lower extremity above knee with complication: Status: Acute (6) Pressure ulcer: Status: Acute Assessment and plan: Coccygeal and gluteal. Being managed by nursing. Wound consult for amputation pending. They can address pressure ulcers, too (7) Living accommodation issues: Status: Acute Assessment and plan: Unsafe situation at home at time of admission. Negin is not welcome at local SNFs due to her ongoing smoking when directed not to. (Note that she is not smoking at [facility] and has not asked for a cigarette) Subjective Subjective Patient reports: still having pain and pain is less Interval history since last seen: some anxiety overnight basal pain med is now at 18.5 mg/hr (up from 1.5 mg at home and 2 mg on admission) Negin was alert and talkative last night with family. Son, dil, granddaughter and daughter were all at bedside. Her wound is more odiferous. RN will sprinkle jaycob in wound bed at next dressing change to see if this helps. She is slightly confused, but pleasant and cooperative. She has not asked for a cigarette. She allowed nurses to insert a camejo catheter. She put out 425 cc over last 14 hrs, giving an hourly UOP of 33 ccs. Her kidneys appear to be beginning to shut down. She is also quite dry. SHe has allowed mouth care only once. Exam Narrative Exam Narrative: Appears older than stated age. In hospital bed. Talking with me and nurses. Awake. Did eat a few bites for breakfast and took a few sips. VS HR 120s, RR 14 Lying in bed with HOB elevated Eyes anicteric EOMI HEENT mm are dry adn parched appearing. Dentures out now. Edentulous. neck well healed bilateral CEA scars, no lad Lungs distant, some crackles at bases, no apnea, no increased wob CV murmur throughout all lung sultana, tachycardic abd slender no masses noted, + bs wnl, CADD pump inserted SC in abdomen camejo in place draining dark yellow urine neuro awake and interactive, quiet, not agitated, occasional grimace when moving psych she has been cooperative and pleasant during this admission, some anxiety noted last night, not treated with lorazepam, nurses asked for liquid ativan as they were worried about giving tablet SL skin pale, did not take down bandage to examine wound, pressure ulcers as noted ext missing left leg, high AK amputation, almost to pelvis, right leg with significant muscle wasting, well healed fasciotomy scar, non palpable DP and PT pulses Objective Last Vital Signs Temp 98.6 F 05/04/24 08:04 Pulse 109 H 05/04/24 08:04 Resp 23 05/04/24 08:04 BP 106/59 L 05/04/24 08:04 Pulse Ox 90 L 05/04/24 08:04 Time Spent with Patient Time Spent with Patient: <25 minutes Time was spent: referring, communicating with other health caregivers non medical, counseling the patient, care coordination and other (Note that I have been communiating daily with Hospice Nurses. roustabout supervisor visited Negin and her family yesterday. )
[2024-05-04] MEDS: metroNIDAZOLE 500 MG TAB 1500 MG UD ×2 (10:03→23:54)
--- NOTE | 2024-05-04 11:33 | PHA.REVIEW2 ---
Pharmacy Admission Review Admission Clinical Review Admission Pharmacy Review: Pressure ulcer (Acute) Uncontrolled pain (Acute) Living accommodation issues (Acute) Smoker (Acute) Wound cellulitis after surgery (Acute) Gangrene (Acute) Hallucinations (Acute) Hospice care patient (Acute) Amputation of left lower extremity above knee with complication (Acute) PAD (peripheral artery disease) (Acute) Wound infection (Acute) Peripheral vascular disease (Acute 11/12/13) insect venom Allergy (Severe, Verified 12/20/23 10:27) requires epi-pen (black flies) erythromycin base Adverse Reaction (Unknown, Verified 12/20/23 10:27) upset stomach DO NOT TAKE BP LEFT ARM Adverse Reaction (Uncoded 12/20/23 10:27) Other (See Comment) Resuscitation Status DNR/DNI Height 5 ft 4 in Weight 52.163 kg Pharmacy Admission Review SOAP Subjective: Patient under the care of Hospice, [employer], pain control Above knee LL amputation, gangrenous, pressure wound ulcers Objective: Pain 10+, BP 106/59, HR>100, O2 90% on room air Assessment: Hydromorphone SQ CADD, concentration 2mg/ml, current rate 18.5mg/hr (1.85 ml/hr) @0930 today, 59.8ml remains ~ 30 hours at current rate, but patient also receiving bolus' and rate increases Crushed Metronidazole tablets for odorous gangrenous stump Lorazepam oral concentrate also added for agitation in addition to the 1mg tablets, once patient declines Has not used metered dose inhalers on this admission Plan: CADD #2 was made in anticipation of increased rate and positional changes
--- NOTE | 2024-05-04 13:24 | PHA.ACLINAW ---
Comments Comments/Follow Ups: Correction: Hydromorphone SQ CADD concentration is 10mg/ml
[2024-05-05] MEDS: LORazepam 1 MG TAB PO ×2 (00:36→17:19)
[2024-05-05] MEDS: Miconazole 2% Topical Powder 85 GM BTL TP ×3 (00:53→21:02)
--- NOTE | 2024-05-05 01:43 | WOUNDCONS ---
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 Negin was admitted on 05/02/24 for hospice symptom management. Pain management includes a CADD pump for which she can receive a bolus as needed and for dressing changes. Abdullahi catheter has recently been placed. Allergies, progress notes and VS were reviewed. Negin verbally agreed to the wound consult and photo consent. This inspector automatic typewriter had positioning assistance from Marvin Man RN. Wound Left above knee amputation: Wound Type: Amputation Wound General Appearance: Reddened, Blackened, Necrotic and Tunneling Wound Bed Greatest Portion: Yellow (Slough) Wound Bed Lesser Portion: Red (Granulation) Wound Surrounding Tissue Appearance: Bright Red and Undermined Percent of Wound Bed Granulated/Red: 10 Percent of Wound Bed Slough/Yellow: 65 Percent of Wound Bed Eschar/Black: 25 Wound Drainage Amount: Large Wound Drainage Odor: Foul Odor and Pungent Wound Drainage Description: Bloody and Purulent Wound Topical Solution/Irrigant: Other (Skintegrity) Wound Debridement Method: Gauze Additional Other Comments: Periwound skin reddened making dressing adhesive removal painful Left ischial tuberosity: Wound Type: Pressure Ulcer Pressure Ulcer Stage: Eschar/Unstageable Percent of Wound Bed Slough/Yellow: 90 Percent of Wound Bed Eschar/Black: 10 Wound Drainage Amount: Moderate Wound Drainage Odor: Foul Odor Wound Drainage Description: Bloody and Brown Wound Topical Solution/Irrigant: Other (Skintegrity) Additional Other Comments: Unable to redress the wound after dressing was removed due to pain intolerance Sacralcoccygeal region and buttocks: Wound Type: Pressure Ulcer Pressure Ulcer Stage: Eschar/Unstageable Wound General Appearance: Reddened Wound Bed Greatest Portion: Yellow (Slough) Wound Surrounding Tissue Appearance: Bright Red Percent of Wound Bed Granulated/Red: 15 Percent of Wound Bed Slough/Yellow: 85 Additional Other Comments: Unable to redress the wounds during consult due to intolerable pain Circulation, Sensation, Motion Edema Degree: Other (Non-pitting edema palpable in remaining portion of left extremity from groin to distal portion of stump.) Skin Temperature: Hot Skin Color: Aldora Pain Additional Other Comments: Bolus from CADD pump given prior to dressing change. Repositioning of left extremity is very painful for the patient even with a bolus dose to assist with pain management. Wound Summary Wound Summary: Photo 1:Malodorous left leg amputated above the knee with necrotic tissue. Undermining is evident on inner thigh area. Photo 2: Patient is right side-lying with pressure injuries on sacrococcygeal and ischium area. Photo clarity was limited due to positioning and pain management challenges. -Stage 2 pressure injury is partly visible on coccyx. -Unstageable pressure injuries on right and left buttocks -Unstageable pressure injury on left ischial tuberosity Photo Photo: Treatment/Dressing Change Cleanse With: Other (Skintegrity wound cleanser) Dressing Types: Kerlix (Gauze Roll) and Other (Maxorb II Ag, alginate wound dressing with antibacterial silver) Dressing Comment: Maxorb II Ag (4x5) rectangles x2 placed on wound area of stump then Kerlix x2 wrapped around stump Nutrition Education Reviewed Nutrition Education: Yes Note: Negin reports a decreased appetite. Encourage adequate fluid intake and offer small frequent meals and fortify snacks with peanut butter. Nutritional supplements may provide necessary high calories for wound healing. BMI is 19.7 Recomendation Recomendation:: Daily and as needed for left lower extremity: Remove Kerlix dressing and Maxorb II Ag If pain control is tolerable for patient, spray gauze with wound cleanser and dab at wound base Continue with provider recommendations with crushed tablets sprinkled on wound for odor control Place Maxorb II Ag (x2) over wound area on stump Cover with Kerlix x2 For pressure injuries: Change every 3 days and as needed Remove dressings If patient able to tolerate, spray with wound cleanser let dwell for 2 minutes and pat dry Apply Sureprep protective wipe on periwound where adhesive from dressing is expected Apply Optifoam Gentle EX or Optiview transparent dressing Also, frequent repositioning to relieve/redistribute pressure and enhance comfort Physcian/Nurse Practioner Notified: Yes Treatment Time Time Total Time Spent with Patient: 60 minutes
[2024-05-05 07:27] VITALS: BP 118/63; PULSE 109; RESP 19; TEMP 36.1; O2SAT 87
--- NOTE | 2024-05-05 08:27 | W.NUTRFU ---
Date of service: 05/05/24 Time of Service: 08:27 Nutrition Note NOTE: Patient chart screened for nutrition risk - noted comfort care measures. No aggressive nutrition interventions planned at this time - will provide hospice nourishment cart for family/visitors and will send up meal trays as desired/requested. Time Spent in Nutritional Counseling and Treatment: 0
--- NOTE | 2024-05-05 08:38 | PDOC.CMPRO ---
Date of service: 05/05/24 Time of Service: 08:38 Care Management Progress Note Progress Note Text Progress Note Text: Viktoriya was receiving care from nursing when CM attempted to meet with her. She was yelling out, likely in pain, as per report, her dressing changes and Q2H turns have been painful, and she has required additional medication for pain control. Per report, she continues to require symptom management for pain control. She may remain at [facility] for end of life care, if she is imminently passing. If not, she will likely return to [facility], who provides her with 12/02 care. CM will continue to follow. Discharge Potential Discharge Needs: Other (return to shelter vs end of life care at [facility]) Anticipated Barriers to Discharge: Other (if imminent, Viktoriya will remain at [facility]) Transportation: EMS Plan: Anticipate Viktoriya will return to the shelter in the community where she was being cared for ([facility]). If she returns home, she will utilize EMS transport. If she is imminently passing, she will remain at [facility] for end of life care. CM will continue to support Viktoriya and her family. SDOH(Care Management) Screening Will the Patient Participate in the Screening?: Yes Do you worry about having a steady place to live?: no Problems where you live: no known problems In the past 12 months, have you had to go without electric, gas, oil or water in your home?: no Have you or anyone in your house had to go without enough food to eat?: no Has lack of transportation kept you from medical appointments or from doing things needed for daily living?: no Has anyone in your support network made you feel unsafe for any reason?: no
[2024-05-05 08:56] VITALS: O2SAT 92
[2024-05-05] MEDS: metroNIDAZOLE 500 MG TAB 1500 MG UD ×2 (11:36→21:02)
--- NOTE | 2024-05-05 16:48 | PGE_ITS ---
Date of Service Date of service: 05/05/24 Time of Service: 14:30 Assessment and Plan Assessment and plan (1) Uncontrolled pain: Status: Acute Assessment and plan: Negin has been stable on hydromorphone basal dose of 22.5mg/hr since midnight this morning, 17 hours at this time. She has received one bolus of 2mg w/limited effect after would care Bolus rate was increased to 9mg, encouraged to use prior to any repositioning, wound care and instead of increasing basal rate at this time If she remains stable on this basal dose for 24 hours it may be considered for her to be discharged to [facility] (2) Gangrene: Status: Acute Assessment and plan: Primary terminal diagnosis, with infection and inability to heal. She was predicted to within days to weeks of admission by her vascular team. reviewed gangrene progression w/family, anticipation of sepsis w/gangrene as COD; reviewed why abx were not being used for treatment no odor in room; continue Flagyl (3) Wound cellulitis after surgery: Status: Acute (4) Hospice care patient: Status: Acute Assessment and plan: Here on symptom management. Requires frequent intensive assessment of pain and readjustment of hydromorphone basal doses. Continue GIP care. Will be seen tomorrow by hospice med director Dr Martinez, meeting w/family added scopolamine patch to PRN order VS switched to PRN O2 PRN (5) Amputation of left lower extremity above knee with complication: Status: Acute (6) Pressure ulcer: Status: Acute Assessment and plan: Coccygeal and gluteal. Being managed by nursing. see wound consult note consider air mattress overlay; would need to be ordered per medsurg charge nurse, will defer to hospice team at this time (7) Living accommodation issues: Status: Acute Assessment and plan: Unsafe situation at home at time of admission. Negin is not welcome at local SNFs due to her ongoing smoking when directed not to. reviewed w/son and DIL discharge plan w/safety parameters set prior to discharge w/[facility], plan to continue reviewing s/p IDG meeting tomorrow; at this time, they are unable to take her home to [employer] w/them (8) Agitation: Status: Acute Assessment and plan: continue risperidone PRN lorazepam and haldol PRN stable today (9) Discharge planning issues: Status: Acute Assessment and plan: Negin has fluctuated over the weekend, w/some reports of potential transition to actively dying, but now appears stable and more likely to in the days to weeks window of life expectancy. She is not safe for discharge as this time, see above w/pain plan. There also needs to be a team meeting to ensure parameters for returning home plan as well. Dr Martinez following closely and will determine discharge plan as early as tomorrow, pending stability; PROFESSOR OF HISTORICAL THEOLOGY and chaplian involved If it is determined that she will remain in hospital through EOL, family requesting someone sit w/her so she is not alone, to coordinate w/certified surgical assistant, hospice and volunteers if needed. Subjective Subjective Interval history since last seen: Negin remains at [facility] on hospice for symptom management; present at bedside today son Indio and KARI Patel - Indio # [phone] Amanda # [phone] Pain: hydromorphone basal rate increased to 22.5mg/hr, up from 18.5mg yesterday. She appears more comfortable today, less calling out, less grimacing and groaning. Increased sleeping, confusion; she was not bolused before wound care this morning and began screeching out in pain immediately, which took some time to settle her down, after acute wound care/repositioning ended she was comfortable again. She has had 1 2mg bolus today - some nursing raises concerns w/oversedation w/hydromorphone increased dose - reviewed w/hospice team, increased initially w/quick uptitration, however in last 24 hours increase has slowed down, to only a 4% increase in 24h LLE wound: painful dressing changes as above; she had a new dressing pad on this morning, which she ripped off (causing increased pain as well), some was stuck to wound. everything covered now. odor is controlled, continue w/Flagyl sprinkling qd; daily dressing changes - wound care did assess and evaluate LLE wound and new pressure sore wounds, see consult note Agitation: decreased agitation today compared to over the weekend. they did give her one PRN dose of risperidone overnight w/good effect; no agitation today, besides when increased pain. No agitation or PRN meds for agitaiton given today Breathing: nurse reports a few periods of apnea, not longer than 10s w/some tachynpea earlier, however none witnessed today. Family has not appreciated any breathing changes per family: limited oral intake,tolerating sips for them Social: family concerned with discharge plan, safety w/returning home, ability to tranfser out of bed w/o 4 person assist they see while in hospital, unsure if [facility] has a parisa or ability to transfer her. - concerned w/# of distress calls they get from [facility], you have to get up here right now, also concerned that caregiver seems to leave her alone at periods during the day, under the impression for multimedia coordinator care - they would not want her to alone, w/o someone sitting w/her and would appreciate [employer] Coordinator/hospice sitting with her if it were determined that she was actively dying in [facility] Kirsten Best visited today; no other visitors - they live on [address]; their initial plan was to return home tomorrow, but will wait tomorrow to review updates in plan w/Dr. Martinez. They are unable to take her in their home at this time. they do not have ideas on other locations for her to relocate which may be safer, given the financial restrictions Exam Narrative Exam Narrative: Appears older than stated age. In hospital bed. Talks w/staff and family. Awake w/some rests, wakes easily w/stimuli. sips coffee Lying in bed with HOB elevated Eyes anicteric EOMI HEENT mm are dry and parched appearing. Edentulous. neck no lad Lungs distant, some crackles at bases, no apnea, no increased wob CV murmur throughout all lung sultana, tachycardic abd slender no masses noted, + bs wnl, CADD pump inserted SC in abdomen camejo in place draining clear yellow urine neuro awake and interactive, quiet, not agitated, occasional grimace when moving psych she has been cooperative and pleasant skin pale, did not take down bandage to examine wound, pressure ulcers as noted ext missing left leg, high AK amputation, almost to pelvis, right leg with significant muscle wasting Objective Last Vital Signs Temp 97.0 F L 05/05/24 07:27 Pulse 109 H 05/05/24 07:27 Resp 19 05/05/24 07:27 BP 118/63 05/05/24 07:27 Pulse Ox 92 05/05/24 08:56 Time Spent with Patient Time Spent with Patient: >50 minutes (total time 100m) Time was spent: preparing to see the patient(eg.review tests), obtaining and/or reviewing separately otained hiistory, ordering medications,tests, procedures, referring, communicating with other health live in caregiver, counseling the patient and care coordination
--- NOTE | 2024-05-05 17:46 | NUR.NOTE ---
Nursing Note: Discussed bolus with pharmacist Raymond who confirms 9mg is correct, Raymond had confirmed it already with provider, and it should be given.
[2024-05-05] MEDS: Nicotine 21 MG/24 HR PATCH TD (21:01)
[2024-05-06 08:00] VITALS: PULSE 88; RESP 20; TEMP 36.9
[2024-05-06] MEDS: metroNIDAZOLE 500 MG TAB 1500 MG UD (09:12)
[2024-05-06] MEDS: Miconazole 2% Topical Powder 85 GM BTL TP ×2 (09:19→20:16)
--- NOTE | 2024-05-06 11:30 | PDOC.CMPRO ---
Date of service: 05/06/24 Time of Service: 11:30 Care Management Progress Note Progress Note Text Progress Note Text: Viktoriya was awake and lying in bed when CM met with her. She is a patient of Hospice and continues to require hospitalization for pain management. Viktoriya had been staying with [facility] prior to this admission and verbalizes to CM that she wants to be home and also notes that she's still in a lot of pain. Following that discussion, CM briefly checked in when she talking with Dr. Martinez; and she agrees to stay another night for pain control. Ability to return to [facility] is not an option at this time due to current legal issues pending against [facility]. CM spoke with DOLLY Wynne from Hospice and she is planning on sending a referral to the [facility] [place] tomorrow depending how she does overnight. Her son Christiano and KARI Weston are returning to their home is [facility] and want to be called with changes or if she appears to be actively dying. CM will follow. Son Indio Jackson . Discharge Potential Discharge Needs: Other (Hospice) Anticipated Barriers to Discharge: Medical Status Patient/Family Education Needs: Review discharge instructions, discuss Ask Me Three Plan: Hospice patient; admitted to [facility] for sx management. Hospice team is supporting discharge planning considerations w Per hospice policy, she is not allowed to return to [facility] house. DOLLY Zadii from Hospice will be [facility] [place] tomorrow, depending how she does overnight. SDOH(Care Management) Screening Will the Patient Participate in the Screening?: Yes Do you worry about having a steady place to live?: no Problems where you live: no known problems In the past 12 months, have you had to go without electric, gas, oil or water in your home?: no Have you or anyone in your house had to go without enough food to eat?: no Has lack of transportation kept you from medical appointments or from doing things needed for daily living?: no Has anyone in your support network made you feel unsafe for any reason?: no
--- NOTE | 2024-05-06 11:46 | W.PM.PROGNOT ---
Date of Service Date of service: 05/06/24 Time of Service: 10:30 Assessment and Plan Assessment and plan (1) Agitation: Status: Acute Assessment and plan: She did accept risperidone now. Will change back to scheduled. Did review palliative sedation permission form as a last chance scenario. Hoa is very opposed to dying. She has not done any spiritual or psychological preparations. Son Indio and dil Trista to review and discuss. Explained that Hoa is not at that place now, but very well may be within the week. (2) Pressure ulcer: Status: Acute Assessment and plan: Ordered special bed to help with these. (3) Uncontrolled pain: Status: Acute Assessment and plan: Continues on 22.5 mg basal. Based on additional 72 mg, will increase to 25 mg. (4) Living accommodation issues: Status: Acute Assessment and plan: Unsafe to return to the community [facility] where she was living previously. (5) Gangrene: Status: Acute Assessment and plan: Will likely be cause of her . (6) Hallucinations: Status: Acute Assessment and plan: Trying risperidone (7) Hospice care patient: Status: Acute Assessment and plan: Continue symptom management Starla Hastings NP will see tomorrow (8) Amputation of left lower extremity above knee with complication: Status: Acute Assessment and plan: Will be end of life cause Subjective Subjective Patient reports: still having pain, voiding w/o difficulty (has camejo catheter), shortness of breath and fever; denies feels better Interval history since last seen: Met with hospice VIDEO NEWS EDITOR Dyan Humphries and with son Indio Jackson and his Trista. Hoa received multiple boluses overnight. She had a least 6 doses on the overnight shift. She remains on 22.5 mg/hr of basal dose. Hoa has had 2 boluses of 9 mg each of hydromorphone this am, one while I was present, another when she had a wound consult and bandage change this am. She was quite warm to touch this am. She was confused intermittently. She definitely has some delirium, as she has had each time I have seen her. She was more fiesty and was refusing medications this am. She refused lorazepam and risperidone at first. She persisted in refusing lorazepam, afraid that it would make her loopy. She did accept a risperidone tab from her son, Indio. Her primary nurse, Radha, said that she had received risperidone last night, too, and that she did well with it. We reviewed options for Hoa IF she stabilizes here. Family gave okay for DOLLY to look into [facility] in . Per hospice policy, she is not allowed to return [place] [facility] [place], given current legal issues pending against [facility]. Visits went well with Men[employer]S [employer] Hair Piece Consultant over the weekend. Granddaughter Laurita was able to be with her grandmother. Indio and Trista are probably going to return to [facility] today. They want to be called with any changes that look as if she is actively dying. Exam Narrative Exam Narrative: Appears older than stated age. In hospital bed. Talks w/staff and family. Awake but with some confusion, mild delirium. Lying in bed with HOB elevated. Uncomfortable most of the time. Restless. Eyes anicteric EOMI HEENT mm are dry and parched appearing. Edentulous. neck no lad, well healed CEA scars bilaterallyl Lungs distant, some crackles at bases, no apnea, no increased wob CV murmur throughout all lung sultana, tachycardic abd slender no masses noted, + bs wnl, CADD pump inserted SC in abdomen camejo in place draining clear yellow urine neuro awake and interactive, fidgeting, pulling on bandage over leg wound, wanting to be repositioned repeatedly psych somewhat agitated today worse with multiple people in the room with her, best one-on -one skin pale, did not take down bandage to examine wound, pressure ulcers as noted ext missing left leg, high AK amputation, almost to pelvis, right leg with significant muscle wasting Objective Last Vital Signs Temp 97.0 F L 05/05/24 07:27 Pulse 109 H 05/05/24 07:27 Resp 19 05/05/24 07:27 BP 118/63 05/05/24 07:27 Pulse Ox 92 05/05/24 08:56 Time Spent with Patient Time Spent with Patient: >50 minutes Time was spent: obtaining and/or reviewing separately otained hiistory, ordering medications,tests, procedures, referring, communicating with other health careers adviser, counseling the patient and care coordination
[2024-05-06] MEDS: LORazepam 2 MG/1 ML Oral Concentrate PO (15:57)
--- NOTE | 2024-05-06 16:17 | CHAPLAIN ---
Negin was sitting up in bed when I visited. She was struggling to get comfortable in the bed and restless. Her son Able was there and trying to help her adjust the bed for more comfort. Negin was focused on getting more comfortable and not interested in conversation. She is a Hospice patient and the hospice [facility] was in to visit her over the weekend and will likely continue to.
--- NOTE | 2024-05-06 16:49 | W.PM.PROGNOT ---
Date of Service Date of service: 05/06/24 Time of Service: 16:49 Assessment and Plan Assessment and plan (1) Dying care: Status: Acute Assessment and plan: Palliative sedation orders have been signed. Consent signed by son Indio Jackson. Propofol to be started IF lorazepam stops working. Anti-psychotics ineffective. (2) Agitation: Status: Acute Assessment and plan: See above. Subjective Subjective Patient reports: still having pain, fever and other (agitated, anxious); denies feels better, tolerating liquids well (sips only) or tolerating a regular diet (eating very little, drinking very little) Interval history since last seen: I was called back in to see Viktoriya again after she experienced several hours of agitation and anxiety. We discussed palliative sedation earlier with her son and carmen. They reviewed the consent form again in my absence and signed it with nursing present. Hoa had been refusing any lorazepam. She had had risperidone but this didn't work well for her. Its effects wore off within minutes. She continues on hydromorphone at 25 mg/hr wiht a 10 mg bolus q 15 prn. I spoke to the pharmacist about ordering propofol for the palliative sedation drip. However, by the time I came in, Hoa had received 0.5 mg of lorazepam orally and she was much calmer. She was not taking off her leg's bandages. She was not hitting people or yelling at them. Given her improvement, which was confirmed by her primary nurse Radha, we opted to postpone starting the palliative sedation tonight. Of course, if she returns to her extremely agitated behavior which cannot be settled down with either non-pharm or pharm interactions, then we may need to start the propofol per protocol. I did let Dr Zheng know I was likely going to start a palliative sedation drip. Exam Narrative Exam Narrative: See note from earlier today. At this visit, she was mildly sedated. She was able to discuss continuing lorazepam vs starting propofol for palliative sedation. She chose lorazepam. Plan B is to start propofol drip if lorazepam stops working. she looks calm. She is not pulling at her bandage She was refusing offers of water and food. She doesn't appear to be in pain. Objective Last Vital Signs Temp 97.0 F L 05/05/24 07:27 Pulse 109 H 05/05/24 07:27 Resp 19 05/05/24 07:27 BP 118/63 05/05/24 07:27 Pulse Ox 92 05/05/24 08:56 Objective Narrative Objective Narrative: See sobia. Time Spent with Patient Time Spent with Patient: 35-49 minutes Time was spent: ordering medications,tests, procedures, referring, communicating with other health child care centre manager (discussed plan in detail with Dr Zheng, palliative care), counseling the patient and care coordination
[2024-05-06] MEDS: LORazepam 2 MG/ML VIAL 1 MG IVP ×4 (17:29→23:57)
--- NOTE | 2024-05-06 20:01 | NUR.NOTE ---
Nursing Note:Patient very agitated, restless, and resistant to care. Justine was trying to climb over the side rails, demanding to get up. Safety a concern. Dr Martinez at the bedside to assist with on going treatment plan. Pt was refusing to take any oral meds. Multiple attempts to medicate patient unsuccessful. Risperidone changed to ODT. I was able to get a dose into her. Partial relief noted and behaviors improved. Dr Martinez and myself met with Justines children. Her son consented to palliative care sedation. We made a final attempt to use the liquid Ativan vs propofol drip. Ativan was mixed with water and we were finally able to get 2mgs into her. Justine responded very well to the ativan. We started an IV in her right wrist and IV Ativan was ordered. IV ativan lessened behaviors but patient continues to pick at her wounds and IV site as it wears off.. She managed to dislodge her SQ CADD access. Tubing and SQ site changed.
[2024-05-07] MEDS: LORazepam 2 MG/ML VIAL 1 MG IVP ×5 (02:14→23:54)
--- NOTE | 2024-05-07 09:01 | CMPROGNOTE_ITS ---
Date of service: 05/07/24 Time of Service: 09:01 Care Management Progress Note Progress Note Text Progress Note Text: Viktoriya was lying in bed with her eyes closed when CM met with her. She is minimally responsive to her name and her arms are extended; as if she is reaching for something in front of her. She is being medicated for pain management and agitation and appears comfortable and relaxed at this time. No safe discharge plan exists and per provider Viktoriya appears imminent. Will stay at [facility] symptom management and end of life care. Discharge Plan: Hospice patient. Per Hospice provider; patient will remain at [facility] for end of life care and symptom management. Hospice is working closely with her son Indio and PLANTING MATERIAL REMOVER planned on supporting him with end of life arrangements. CM will follow. SDOH(Care Management) Screening Will the Patient Participate in the Screening?: Yes Do you worry about having a steady place to live?: no Problems where you live: no known problems In the past 12 months, have you had to go without electric, gas, oil or water in your home?: no Have you or anyone in your house had to go without enough food to eat?: no Has lack of transportation kept you from medical appointments or from doing things needed for daily living?: no Has anyone in your support network made you feel unsafe for any reason?: no
[2024-05-07] MEDS: Miconazole 2% Topical Powder 85 GM BTL TP ×2 (09:50→20:31)
[2024-05-07] MEDS: LORazepam 2 MG/1 ML Oral Concentrate PO (09:51)
--- NOTE | 2024-05-07 10:41 | PGE_ITS ---
Date of Service Date of service: 05/07/24 Time of Service: 10:04 Assessment and Plan Assessment and plan (1) Agitation: Status: Acute Assessment and plan: Negin appears calm and comfortable at rest but staff report that she was restless and agitated overnight. She pulled her camejo catheter out with the balloon intact. She required PRN lorazepam overnight. She has increased agitation with position changes. Schedule lorazepam 1 mg IV q4h. Continue PRN lorazepam. Add PRN haloperidol. Continue to titrate pump to manage pain. Limit repositioning for comfort. (2) Pressure ulcer: Status: Acute Assessment and plan: Continue wound care for comfort. (3) Uncontrolled pain: Status: Acute Assessment and plan: Appears to be under better control except for position changes/care. Continues on Hydromorphone pump, increased to 27 mg/hr basal overnight. Increase bolus to 12 mg. (4) Living accommodation issues: Status: Acute Assessment and plan: It appears that she may be transitioning to more actively dying. Continue hospice symptom management. (5) Gangrene: Status: Acute Assessment and plan: Will likely be cause of her . (6) Hallucinations: Status: Acute Assessment and plan: Trying risperidone. Haloperidol IV ordered for PRN use. (7) Hospice care patient: Status: Acute Assessment and plan: Continue symptom management Dr. 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 She is on hospice symptom management. Staff report that she was restless overnight. She pulled her camejo catheter out with the balloon intact. She required doses of PRN lorazepam. She is on hydromorphone pump. The rate was increased to 27 mg/hr overnight. She appears more comfortable now but staff report that she calls out and appears uncomfortable with repositioning and care. Her hydromorphone bolus dose was increased from 10 mg to 12 mg. Staff report that she took bites and sips yesterday but she is not alert enough to take anything by mouth today. She is minimally responsive. She appeared to be resting comfortably. She partially opened her eyes to verbal and tactile stimuli. When questioned if she was comfortable, she said yeah. She was unable to answer any other questions, she went right back to sleep. Exam Narrative Exam Narrative: General: Appears older than stated age. Laying in hospital bed, appears to be resting comfortably. In NAD. minimally responsive. HEENT: normocephalic, atraumatic, EOMI, mm dry. Cardiovascular: tachycardic, +murmur. Respiratory: respirations appear even and unlabored, lung sounds diminished on limited anterior and lateral exam. GI: abd soft/flat, nondistended, does not appear to be tender on palpation. Ext: LLE with AKA with bandage intact, no drainage on dressing, malodorous. Objective Last Vital Signs Temp 36.9 C 05/06/24 08:00 Pulse 88 05/06/24 08:00 Resp 20 05/06/24 08:00 BP 118/63 05/05/24 07:27 Pulse Ox 92 05/05/24 08:56 Time Spent with Patient Time Spent with Patient: 35-49 minutes Time was spent: preparing to see the patient(eg.review tests), obtaining and/or reviewing separately otained hiistory, ordering medications,tests, procedures, referring, communicating with other health medicare sales executive and care coordination
[2024-05-07] MEDS: Scopolamine 1 MG/3 DAYS PATCH TD (12:01)
[2024-05-07] MEDS: Normal Saline Flush 10 ML SYR IVP (12:07)
[2024-05-07] MEDS: Haloperidol 5 MG/ML VIAL 2 MG IM/IV (18:27)
[2024-05-08] MEDS: LORazepam 2 MG/ML VIAL 1 MG IVP ×2 (01:04→03:40)
[2024-05-08] MEDS: PROPOFOL 1,000 MG/100 ML BTL 1 MG IV_INF (01:39)
--- NOTE | 2024-05-08 01:53 | NUR.NOTE ---
Nursing Note:Throughout shift pt developed increased resp rate, increased WOB, using accessory muscles, JVD, diaphoretic, displaying air hunger. Scheduled ativan as well as PRN ativan provided in combination w/ 12mg boluses from CADD pump x2 see MAR. All attempts to make pt comfortable ineffective. Dr. Martinez stated in previous note propofol to be started if ativan becomes ineffective. Propofol at prescribed dose started as per order. Will cont to monitor for effectiveness.
--- NOTE | 2024-05-08 14:58 | PDOC.CMPRO ---
Date of service: 05/08/24 Time of Service: 14:58 Care Management Progress Note Progress Note Text Progress Note Text: Viktoriya this morning. SDOH(Care Management) Screening Will the Patient Participate in the Screening?: Yes Do you worry about having a steady place to live?: no Problems where you live: no known problems In the past 12 months, have you had to go without electric, gas, oil or water in your home?: no Have you or anyone in your house had to go without enough food to eat?: no Has lack of transportation kept you from medical appointments or from doing things needed for daily living?: no Has anyone in your support network made you feel unsafe for any reason?: no
--- NOTE | 2024-05-08 16:16 | EXPE_ITS ---
Date of service: 05/08/24 Time of Service: 06:11 Discharge Plan Disposition Patient Disposition: Discharge Details Reason For Visit: PVD, Stump wound, Uncontrolled pain Admit Date/Time: 05/02/24 12:08 Admit Provider: Dinah Martinez Attending Provider: Dinah Martinez Primary Care Provider: Shayna Johnston Hospital Course Hospital Course: Viktoriya was admitted to [facility] on 05/02/24 for symptom management under hospice. Her pain was grossly undercontrolled. There were multiple problems in [facility] that made it not safe for Viktoriya to be there. We had started a hydromorphone pump in the home setting, but it kept falling off (3x in <72 hrs) and once Viktoriya cut the line, which her daughter reported she repaired without consulting nurses. At any rate, Viktoriya was uncomfortable and unsafe at home so she was brought in by ambulance for inpatient hospice care. She required a rapid escalation/titration in her dose of subcutaneous hydromorphone. She had been on 1.5 mg/hr at home and was up to > 20 mg/hr within 2 days. At the time of her , the rate of increase had slowed considerably. She was at 29 mg/hr, per charge nurse report. She was also requiring some boluses, but fewer. she became very agitated about 48 hrs before her . We had her on haldol, risperidone, and lorazepam, both oral and IV. Despite this, she remained agitated to the point where she was repeatedly tearing off her bandage on her gangrenous stump of left leg. She was at risk for falling OOB. She was hitting hospital staff. About 1: 30 am, per charge nurse on duty, they started the propofol trip per palliative sedation protocol. I had reviewed this medication with the family and pharmacy and supervising nurse and other hospice providers including Camilla Brown NP; Starla Hastings NP; and Karli Zheng MD. Son Indio Jackson signed the consent form for palliative sedation on SundayMay 06. The propofol drip was started at 1:30 am on day of 05/08/24. Note that she approximately 5 hours after this medication was started at low dose of 1 ml/hr. She was up to 5 ml/hr at time of her . She was reportedly very comfortable. Discharge Data Cause of : Gangrene due to peripheral vascular disease Discharge Date/Time-TO BE ENTERED AT DEPARTURE: 05/08/24 06:10 Discharge Sum: Prov Provider Primary care physician: Benjamin Admitting clinician: Dinah Martinez Attending physician on admission: Dinah Martinez Consults: 05/02/24 12:05 Senior Contract Specialist Consult [CONS] Routine Consultation Status:: Contact made by MD Clarification:: Manage/follow per spec. Reason for consult:: EOL concerns 05/02/24 12:17 Wound Care Consult [CONS] Routine Consultation Status:: Follow-up needed Clarification:: Manage/follow per spec. Reason for consult:: assess and treat left leg stump wound as appropriate 05/04/24 05:38 Wound Care Consult [CONS] Routine Consultation Status:: Follow-up needed Clarification:: One time opinion Reason for consult:: stg 2 sacral wound and unstageable R gluteal fold wound, needs assessment for appropriate management. 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 Additional Data Confirmation of as documented by pronouncing clinician: no respirations, no heart sounds and pupils fixed and dilated Family: contacted Attending/PCP notified?: No Attending Physician: Dinah Martinez Was code activated?: No Autopsy requested?: No yarn examiner skeins notified?: No Organ bank notified?: Yes Advance directives: Yes Hospice patient?: Yes
== END 2024-05-08 06:10 | disposition expired | DRG 300 ==
PROVIDERS: Admitting Provider Family Medicine; PCP Student in an Organized Health Care Education/Training Program; Visit Provider Family Medicine
DX: I70.262 Atherosclerosis of native arteries of extremities with gangrene, left leg (principal); R44.3 Hallucinations, unspecified; T87.44 Infection of amputation stump, left lower extremity; Z51.5 Encounter for palliative care; B99.8 Other infectious disease; L89.152 Pressure ulcer of sacral region, stage 2; L89.320 Pressure ulcer of left buttock, unstageable; L89.310 Pressure ulcer of right buttock, unstageable; G89.29 Other chronic pain; F17.210 Nicotine dependence, cigarettes, uncomplicated; Z95.828 Presence of other vascular implants and grafts; Z79.891 Long term (current) use of opiate analgesic; Z59.89 Other problems related to housing and economic circumstances; Z89.612 Acquired absence of left leg above knee; I70.211 Atherosclerosis of native arteries of extremities with intermittent claudication, right leg; E55.9 Vitamin D deficiency, unspecified; E53.8 Deficiency of other specified B group vitamins; M47.817 Spondylosis without myelopathy or radiculopathy, lumbosacral region; G62.9 Polyneuropathy, unspecified; K21.9 Gastro-esophageal reflux disease without esophagitis; K59.00 Constipation, unspecified; G47.62 Sleep related leg cramps; E78.00 Pure hypercholesterolemia, unspecified; J44.9 Chronic obstructive pulmonary disease, unspecified; I70.8 Atherosclerosis of other arteries; Z98.1 Arthrodesis status
CPT/HCPCS: 00123; J1171; J1630; J2060; J2704; J3490